=== PATIENT | female | born 1990 | race Caucasian/White ===

== ENCOUNTER 2024-04-13 12:32 | Outpatient (OUT) | payer OTHER, SELFPAY ==
--- NOTE | 2024-04-13 12:36 | US_ITS ---
[address] [address] Patient Name: ALESHA SAMANO MRN: [id number] date: 1990 Sex: F Assigned Patient Location: [facility] Current Patient Location: [facility] Accession/Order Number: [id number] Exam Date: 04/13/2024 12:36 Report Date: 04/13/2024 14:05 At the request of: KUSHAL PEREIRA Procedure: US OB transvaginal EXAMINATION: US OB transvaginal HISTORY: MISSED MENSES COMPARISON: No relevant comparison available. FINDINGS: GESTATIONAL SAC: Present and normal appearing. YOLK SAC: Present and normal appearing. POLE: Present and normal appearing. CARDIAC: Present. UTERUS: Normal size and appearance. OVARIES: Right: Contains a simple appearing 4.4 cm cyst. Left: Normal. CERVIX: 2.8 cm in length and closed. CUL-DE-SAC: Normal. OTHER: None. AGE BY LMP: 9 weeks 0 days RONY BY LMP: 11/16/2024 AGE BY US CRL: 8 weeks 5 days RONY BY US CRL: 11/18/2024 US/US OB transvaginal IMPRESSION: 1. Single live intrauterine . 2. Short, closed cervix 2.8 cm in length.. Electronically authenticated by: RAMSEY BERGERON Date: 04/13/2024 14:05
== END 2024-04-13 12:33 | disposition home or self-care (01) ==
LOC: NOMS 12:34
PROVIDERS: Visit Provider Obstetrics & Gynecology
DX: N92.6 Irregular menstruation, unspecified (principal)
CPT/HCPCS: 76817

== ENCOUNTER 2024-04-27 09:36 | Outpatient (OUT) | payer OTHER, SELFPAY ==
--- NOTE | 2024-04-27 09:39 | US_ITS ---
[address] [address] Patient Name: ALESHA SAMANO MRN: [id number] date: 1990 Sex: F Assigned Patient Location: [facility] Current Patient Location: [facility] Accession/Order Number: [id number] Exam Date: 04/27/2024 09:38 Report Date: 04/27/2024 10:50 At the request of: KUSHAL PEREIRA Procedure: US OB cervical length EXAMINATION: US OB cervical length HISTORY: SHORT CERVIX COMPARISON: Ultrasound OB transvaginal 04/13/2024 TECHNIQUE: Transabdominal and transvaginal sonographic examination for cervical length. FINDINGS: CERVIX LENGTH: 3.4 cm POSITION: Very early intrauterine . HEART RATE: 173 bpm Age by EDC: 11 weeks 0 days RONY by EDC: 11/16/2024 US/US OB cervical length IMPRESSION: 1. Single live intrauterine . 2. Closed cervix 3.4 cm in length. Electronically authenticated by: RAMSEY BERGERON Date: 04/27/2024 10:50
== END 2024-04-27 09:37 | disposition home or self-care (01) ==
LOC: NOMS 09:37
PROVIDERS: Visit Provider Obstetrics & Gynecology
DX: Z34.91 Encounter for supervision of normal pregnancy, unspecified, first trimester (principal); Z3A.11 11 weeks gestation of pregnancy; N88.3 Incompetence of cervix uteri
CPT/HCPCS: 76817

== ENCOUNTER 2024-05-25 09:23 | Outpatient (OUT) | payer OTHER, SELFPAY ==
--- NOTE | 2024-05-25 | US_ITS ---
[address] [address] Patient Name: ALESHA SAMANO MRN: [id number] date: 1990 Sex: F Assigned Patient Location: [facility] Current Patient Location: [facility] Accession/Order Number: [id number] Exam Date: 05/25/2024 09:25 Report Date: 05/25/2024 09:50 At the request of: KUSHAL PEREIRA Procedure: US OB cervical length EXAMINATION: US OB cervical length HISTORY: Short cervix N88.3 COMPARISON: 04/27/2024 FINDINGS: position: Variable Heart rate: 154 beats minute Cervix: 2.8 cm, closed US/US OB cervical length IMPRESSION: The cervix measures 2.8 cm in length, closed Electronically authenticated by: JULIEN CHAVES Date: 05/25/2024 09:50
--- OUTSIDE RECORDS SUMMARY | 2024-05-25 09:39 | XMS_ITS | CCD ---
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 Name Role Phone ELIGIO ACOSTA Nghia Primary Care Physician Fran GLORIA, IBCLC, Portillo Primary Care Provid er Georgette Adair DO Unavailable [phone] Kushal Benítez DO Unavailable PORTILLO PETERS Primary Care Physician Kushal BENÍTEZ Admitting Unavailable JACKELINVijayy R Attending Unavailable Kushal BENÍTEZ Attending Unavailable Vijay BENÍTEZy R Admitting Unavailable PORTILLO PETERS Attending Unavailable PORTILLO PETERS Attending Unavailable KUSHAL BENÍTEZ Attending Unavailable KUSHAL BENÍTEZ Attending Unavailable Allergies Allergy Classification Reported Allergen(s) Allergy Type Date of Onset Reaction(s) Facility (1 source) No Known Medication Allergies; Translations: [No Known Medication Allergies] Propensity to adverse reactions (disorder) [facility] Repository Medications Current Medications Medication Drug Class(es) Dates Sig (Normalized) Sig (Original) busPIRone (2 sources) Start: 09-22-2021 busPIRone Oral, BID, Refills(s) 0 Start Date: 09/22/21 Status: Ordered Flonase 0.05 mg/inh nasal spray (2 sources) Start: 09-22-2021 Flonase 0.05 mg/inh nasal spray 2 spray(s), Nasal, Daily, 16 gram, Refill(s) 0, each nostril, [id number], 152, cm, 09/22/21 14:32:00 EST, Height/Length Dosing, 120.5, kg, 09/22/21 14:32:00 EST, Weight Dosing Start Date: 09/22/21 Status: Ordered metFORMIN hydrochloride 500 mg oral tablet (4 sources) Biguanide Start: 11-11-2023 End: 12-11-2023 take 2 tablets by mouth in the morning metFORMIN (Glucophage) 500 MG tablet Indications: Hyperinsulinism Take 2 tablets (1,000 mg) by mouth in the morning and 2 tablets (1,000 mg) in the evening. Take with meals. 120 tablet 0 11/11/2023 12/11/2023 Active Start: 03-01-2023 End: 11-04-2023 take 1 tablet by mouth twice daily metFORMIN (Glucophage) 500 MG tablet Indications: Hyperglycemia, unspecified TAKE 1 TABLET BY MOUTH TWICE A DAY 180 tablet 3 03/01/2023 11/04/2023 Discontinued (Therapy completed) sertraline 100 mg oral tablet (8 sources) Serotonin Reuptake Inhibitor Start: 09-24-2019 take 1 tablet by mouth once daily sertraline (Zoloft) 100 MG tablet Indications: Anxiety disorder, unspecified TAKE 1 TABLET BY MOUTH EVERY DAY FOR 90 DAYS 90 tablet 3 03/01/2023 Active Sprintec (2 sources) Start: 09-24-2019 take 1 tablet by mouth once daily Sprintec 1 tab(s), Oral, Daily, Refill(s) 0 Start Date: 09/24/19 Status: Ordered Zofran ODT 4 mg Tab-Dis (2 sources) Start: 05-02-2020 take 1 tablet by mouth three times daily Zofran ODT 4 mg Tab-Dis 4 mg = 1 tab(s), Oral, TID, # 15 tab(s), Refills(s) 0 Start Date: 05/02/20 Status: Ordered Completed/Discontinued Medications Medication Drug Class(es) Dates Sig (Normalized) Sig (Original) medroxyPROGESTERone acetate 10 mg oral tablet (2 sources) Progestin Start: 3 End: medroxyPROGESTERone (Provera) 10 MG tablet 1 (one) time each day at the same time 0 11/25/2022 11/02/2023 Discontinued (Therapy completed) Semaglutide,0.25 or 0.5MG/DOS, (Ozempic, 0.25 or 0.5 MG/DOSE,) 2 MG/3ML solution pen-injector (2 sources) Start: 3 End: 4 Semaglutide,0.25 or 0.5MG/DOS, (Ozempic, 0.25 or 0.5 MG/DOSE,) 2 MG/3ML solution pen-injector Indications: Insulin resistance INJECT 0.5 MG UNDER THE SKIN 1 (ONE) TIME PER WEEK. 3 mL 3 07/07/2023 11/02/2023 Discontinued (Therapy completed) Tirzepatide (Mounjaro) 2.5 MG/0.5ML solution pen-injector (2 sources) Start: 3 End: 4 inject 2.5 mg by subcutaneous injection every week Tirzepatide (Mounjaro) 2.5 MG/0.5ML solution pen-injector as directed Subcutaneous 2.5 mg weekly 0 12/01/2022 11/02/2023 Discontinued (Therapy completed) Problems Active Problems Problem Classification Problem Date Documented Da te Episodic/Chronic Anxiety disorders (8 sources) Anxiety; Translations: [Anxiety disorder, unspecified] Onset: 11-02-2023 11-02-2023 Chronic Diabetes mellitus without complication (8 sources) Prediabetes; Translations: [Prediabetes] Onset: 11-02-2023 11-02-2023 Episodic Female infertility (8 sources) Female infertility; Translations: [Female infertility, unspecified] Onset: 11-04-2023 11-02-2023 Chronic Menstrual disorders (8 sources) Irregular periods; Translations: [Irregular menstruation, unspecified] Onset: 11-02-2023 11-02-2023 Chronic Other endocrine disorders (10 sources) Hyperinsulinism; Translations: [Other hypoglycemia] Onset: 11-02-2023 11-02-2023 Chronic Other nutritional; endocrine; and metabolic disorders (8 sources) Obesity caused by energy imbalance; Translations: [Morbid (severe) obesity due to excess calories] Onset: 11-02-2023 11-02-2023 Chronic Other nutritional; endocrine; and metabolic disorders (8 sources) Body mass index 40+ - severely obese; Translations: [Body mass index (BMI) 40.0-44.9, adult] Onset: 11-02-2023 11-02-2023 Chronic Other nutritional; endocrine; and metabolic disorders (8 sources) Insulin resistance; Translations: [Insulin resistance] Onset: 11-02-2023 11-04-2023 Chronic Other screening for suspected conditions (not mental disorders or infectious disease) (4 sources) Patient encounter status; Translations: [Encounter for screening, unspecified] 11-04-2023 Episodic Other upper respiratory infections (3 sources) Acute upper respiratory infection; Translations: [Acute upper respiratory infection, unspecified] Episodic Past or Other Problems Problem Classification Problem Date Documented Da te Episodic/Chronic Viral infection (1 source) Disease caused by 2019-nCoV; Translations: [COVID-19] Results Test Name Value Interpretation Reference Range Facility C Urineon 05-01-2024 Bacteria identified Cx Nom (U) Microbiology PROCEDURE: Urine Culture [R1] SOURCE: U CleanCatch BODY SITE: COLLECTED DATE/TIME: 04/29/2024 09:54 EDT RECEIVED DATE/TIME: 04/29/2024 14:05 EDT START DATE/TIME: 04/29/2024 14:05 EDT FREE TEXT SOURCE: Kushal BENÍTEZ DO, DO, Corey R FINAL REPORTS Final Report [] Verified Date/Time: 05/01/2024 10:38 EDT 2,000 cfu/ml Mixed skin contaminants Performing Locations R1: This test was performed at: [facility], [address] [place] [address], [facility] , , [facility] Comment on above: Performed By: #### 2 [id number] #### [facility] [address] [place] [address] .Interpretation:on 4 HCV Ab IA Ql Comment Invalid Interpretation Code [facility] Comment on above: Result Comment: Not infected with HCV unless early or acute infection is suspected (which may be delayed in an immunocompromised individual), or other evidence exists to indicate HCV infection. Performed at: [facility] [id number] PhD Wiliam Mendoza Performed By: #### 2 [id number] #### [facility] [address] [place] [address] HCV Antibody RFX to Quant PC Eugenio 04-30-2024 HCV IgG IA Ql Non-Reactive Invalid Interpretation Code Non Reactive [facility] Comment on above: Result Comment: Perf ormed at: [address] [id number] PhD Wiliam Mendoza Performed By: #### 2 [id number] #### [facility] [address] [place] [address] HIV Screen 4th Generation wR fxon 04-30-2024 HIV 1+2 Ab+HIV1 p24 Ag IA Ql Non-Reactive Invalid Interpretation Code Non Reactive [facility] Comment on above: Result Comment: HIV Negative HIV-1/HIV-2 antibodies and HIV-1 p24 antigen were NOT detected. There is no laboratory evidence of HIV infection. Performed at: [address] [id number] PhD Wiliam Mendoza Performed By: #### 9 [id number] #### [facility] [address] [place] [address] Hep Bs Agon 04-30-2024 HBV surface Ag IA Ql Negative Invalid Interpretation Code Negative [facility] Comment on above: Result Comment: Perf ormed at: [address] [id number] PhD Wiliam Mendoza Performed By: #### 2 [id number] #### [facility] [address] [place] [address] [id number] 04-30-2024 HbA1c (Bld) [Mass fraction] 5.3 % Normal <=5.9 [facility] Comment on above: Performed By: #### 7 [id number] #### [facility] [address] [place] [address] RPR with Conf Rfxon 04-30-20 24 Reagin Ab RPR Ql (S) Non-Reactive Invalid Interpretation Code Non Reactive [facility] Comment on above: Result Comment: Perf ormed at: [address] [id number] PhD Wiliam Mendoza Performed By: #### 1 [id number] #### [facility] [address] [place] [address] Rubella IgGon 04-30-2024 Rubella virus IgG Qn (S) 1.76 [IU]/mL Invalid Interpretation Code Immune >0.99 [facility] Comment on above: Result Comment: Non- immune <0.90 Equivocal 0.90 - 0.99 Immune >0.99 Performed at: [address] [id number] PhD Wiliam Mendoza Performed By: #### 1 [id number] #### [facility] [address] [place] [address] ABO/Rhon 04-29-2024 ABO/Rh AB NEG Invalid Interpretation Code [facility] Comment on above: Performed By: #### 2 [id number] #### [facility] [address] [place] [address] ABSCon 04-29-2024 ABSC Gel Interp Negative Normal [facility] Comment on above: Performed By: #### 1 [id number] #### [facility] [address] [place] [address] BLOOD BANKOrdered By: Rand Sol on 04-29-2024 ABO/Rh Interp AB NEG Invalid Interpretation Code [facility] BB Subsection ABSC Gel Interp Negative (04/29/24 10:03 AM) Normal [facility] BB Subsection CBC w/ Auto Diffon 4 Basophils/100 WBC (Bld) 0.2 % Normal 0.0-2.0 [facility] Comment on above: Performed By: #### 2 [id number] #### [facility] [address] [place] [address] Basophils/Leukocytes Auto (Bld) [Pure # fraction] 0.0 E9/L Normal 0.0-0.2 [facility] Comment on above: Performed By: #### 2 [id number] #### [facility] [address] [place] [address] Eosinophils (Bld) [#/Vol] 0.1 E9/L Normal 0.0-0.5 [facility] Comment on above: Performed By: #### 2 [id number] #### [facility] [address] [place] [address] Eosinophils/100 WBC (Bld) 1.1 % Normal 0.0-8.0 [facility] Comment on above: Performed By: #### 2 [id number] #### [facility] [address] [place] [address] Erythrocyte distribution width (RBC) [Ratio] 14.2 % Normal 10.9-14.2 [facility] Comment on above: Performed By: #### 2 [id number] #### [facility] [address] [place] [address] Hematocrit (Bld) [Volume fraction] 38.3 % Normal 34.0-46.0 [facility] Comment on above: Performed By: #### 2 [id number] #### [facility] [address] [place] [address] Hemoglobin (Bld) [Mass/Vol] 13.5 g/dL Normal 12.0-16.0 [facility] Comment on above: Performed By: #### 2 [id number] #### [facility] [address] [place] [address] Lymphocytes (Bld) [#/Vol] 2.2 E9/L Normal 1.0-4.0 [facility] Comment on above: Performed By: #### 2 [id number] #### [facility] [address] [place] [address] Lymphocytes/100 WBC (Bld) 25.1 % Normal 14.0-50.0 [facility] Comment on above: Performed By: #### 2 [id number] #### [facility] [address] [place] [address] MCH (RBC) [Entitic mass] 29.3 pg Normal 27.0-34.0 [facility] Comment on above: Performed By: #### 2 [id number] #### [facility] [address] [place] [address] MCHC (RBC) [Mass/Vol] 35.2 g/dL Normal 31.4-36.0 [facility] Comment on above: Performed By: #### 2 [id number] #### [facility] [address] [place] [address] MCV (RBC) [Entitic vol] 83.3 fL Normal 80.0-100.0 [facility] Comment on above: Performed By: #### 2 [id number] #### [facility] [address] [place] [address] Monocytes (Bld) [#/Vol] 0.5 E9/L Normal 0.2-1.0 [facility] Comment on above: Performed By: #### 2 [id number] #### [facility] [address] [place] [address] Neutrophils (Bld) [#/Vol] 5.8 E9/L Normal 2.0-7.5 [facility] Comment on above: Performed By: #### 2 [id number] #### [facility] [address] [place] [address] Neutrophils/100 WBC (Bld) 67.6 % Normal 36.0-75.0 [facility] Comment on above: Performed By: #### 2 [id number] #### [facility] [address] [place] [address] Platelet 354.0 E9/L Normal 150.0-500.0 [facility] Comment on above: Performed By: #### 2 [id number] #### [facility] [address] [place] [address] Platelet mean volume (Bld) [Entitic vol] 7.9 fL Normal 6.4-10.8 [facility] Comment on above: Performed By: #### 2 [id number] #### [facility] [address] [place] [address] RBC (Bld) [#/Vol] 4.6 E12/L Normal 4.3-5.9 [facility] Comment on above: Performed By: #### 2 [id number] #### [facility] [address] [place] [address] WBC corrected for nucl RBC Auto (Bld) [#/Vol] 8.6 E9/L Normal 4.0-11.0 [facility] Comment on above: Performed By: #### 2 [id number] #### [facility] [address] [place] [address] HEMATOLOGYOrdered By: SYSTEM SYSTEM on 04-29-2024 Basophils/100 WBC (Bld) 0.2 % Normal 0.0 - 2.0 % [facility] Basophils/Leukocytes Auto (Bld) [Pure # fraction] 0.0 E9/L Normal 0.0 - 0.2 E9/L [facility] Eosinophils (Bld) [#/Vol] 0.1 E9/L Normal 0.0 - 0.5 E9/L [facility] Eosinophils/100 WBC (Bld) 1.1 % Normal 0.0 - 8.0 % [facility] Erythrocyte distribution width (RBC) [Ratio] 14.2 % Normal 10.9 - 14.2 % [facility] Hematocrit (Bld) [Volume fraction] 38.3 % Normal 34.0 - 46.0 % [facility] Hemoglobin (Bld) [Mass/Vol] 13.5 g/dL Normal 12.0 - 16.0 gm/dL [facility] Lymphocytes (Bld) [#/Vol] 2.2 E9/L Normal 1.0 - 4.0 E9/L [facility] Lymphocytes/100 WBC (Bld) 25.1 % Normal 14.0 - 50.0 % [facility] MCH (RBC) [Entitic mass] 29.3 pg Normal 27.0 - 34.0 pg [facility] MCHC (RBC) [Mass/Vol] 35.2 g/dL Normal 31.4 - 36.0 gm/dL [facility] MCV (RBC) [Entitic vol] 83.3 fL Normal 80.0 - 100.0 fL [facility] Monocytes (Bld) [#/Vol] 0.5 E9/L Normal 0.2 - 1.0 E9/L [facility] Monocytes/100 WBC (Bld) 6.0 % Normal 4.0 - 14.0 % [facility] Neutrophils (Bld) [#/Vol] 5.8 E9/L Normal 2.0 - 7.5 E9/L [facility] Neutrophils/100 WBC (Bld) 67.6 % Normal 36.0 - 75.0 % [facility] Platelet 354.0 E9/L Normal 150.0 - 500.0 E9/L [facility] Platelet mean volume (Bld) [Entitic vol] 7.9 fL Normal 6.4 - 10.8 fL [facility] RBC (Bld) [#/Vol] 4.6 E12/L Normal 4.3 - 5.9 E12/L [facility] WBC corrected for nucl RBC Auto (Bld) [#/Vol] 8.6 E9/L Normal 4.0 - 11.0 E9/L [facility] UA with Cult Rflxon 04-29-20 24 Bacteria Auto Ql (U) 3+ /HPF Abnormal Trace Fish er [facility] Comment on above: Performed By: #### 4 [id number] #### [facility] [address] [place] [address] Bilirubin Ql (U) Negative Normal Negative [facility] Comment on above: Performed By: #### 4 [id number] #### [facility] [address] [place] [address] Clarity (U) Clear Normal Clear [facility] Comment on above: Performed By: #### 4 [id number] #### [facility] [address] [place] [address] Color (U) Light-Yellow Normal Yellow [facility] Comment on above: Result Comment: Micr oscopic readings are only performed on those samples that meet specific criteria set forth by [facility]. Performed By: #### 4 [id number] #### [facility] [address] [place] [address] Epithelial cells.squamous Auto (Urine sed) [#/Area] 0-2 Invalid Interpretation Code [facility] Comment on above: Performed By: #### 4 [id number] #### [facility] [address] [place] [address] Glucose Ql (U) Negative Normal Negative [facility] Comment on above: Performed By: #### 4 [id number] #### [facility] [address] [place] [address] Hemoglobin Auto test strip (U) [Mass/Vol] Negative Normal Negative [facility] Comment on above: Performed By: #### 4 [id number] #### [facility] [address] [place] [address] Ketones Auto test strip Ql (U) Negative Normal Negative [facility] Comment on above: Performed By: #### 4 [id number] #### [facility] [address] [place] [address] Leukocyte esterase Auto test strip Ql (U) 75 Anna/uL Abnormal Negative [facility] Comment on above: Performed By: #### 4 [id number] #### [facility] [address] [place] [address] Mucus Auto Ql (U) Trace Normal Negative [facility] Comment on above: Performed By: #### 4 [id number] #### [facility] [address] [place] [address] Nitrite Auto test strip Ql (U) Negative Normal Negative [facility] Comment on above: Performed By: #### 4 [id number] #### [facility] [address] [place] [address] pH (U) 5.5 [pH] Invalid Interpretation Code 5.0-9.0 [facility] Comment on above: Performed By: #### 4 [id number] #### [facility] [address] [place] [address] Protein Ql (U) Negative Normal Negative [facility] Comment on above: Performed By: #### 4 [id number] #### [facility] [address] [place] [address] Specific gravity (U) [Rel density] 1.007 Invalid Interpretation Code 1.005-1.030 [facility] Comment on above: Performed By: #### 4 [id number] #### [facility] [address] [place] [address] Urobilinogen (U) [Mass/Vol] Negative Normal Negative [facility] Comment on above: Performed By: #### 4 [id number] #### [facility] [address] [place] [address] WBC Auto (Urine sed) [#/Area] 0-5 Normal 0-5 [facility] Comment on above: Performed By: #### 4 [id number] #### [facility] [address] [place] [address] Type of Urine collection method Clean Catch Normal [facility] Comment on above: Performed By: #### 4 [id number] #### [facility] [address] [place] [address] URINALYSISOrdered By: SYSTEM SYSTEM on 04-29-2024 Bacteria Auto Ql (U) 3+ /HPF Invalid Interpretation Code Trace/HPF [facility] UA Auto SS Bilirubin Ql (U) Negative Normal Negativemg/ d L [facility] UA Auto SS Clarity (U) Clear (04/29/24 9:54 AM) Normal Clear [facility] UA Auto SS Color (U) Light-Yellow 1 (04/29/24 9:54 AM) Normal Yellow [facility] UA Auto SS Comment on above: Interpretive Data: M icroscopic readings are only performed on those samples that meet specific criteria set forth by [facility]. Epithelial cells.squamous Auto (Urine sed) [#/Area] 0-2 graded/HPF Invalid Interpretation Code [facility] UA Auto SS Glucose Ql (U) Negative Normal Negativemg/d L [facility] UA Auto SS Hemoglobin Auto test strip (U) [Mass/Vol] Negative Normal Negativemg/d L [facility] UA Auto SS Ketones Auto test strip Ql (U) Negative Normal Negativemg/d L [facility] UA Auto SS Leukocyte esterase Auto test strip Ql (U) 75 Anna/uL Anna/uL Invalid Interpretation Code NegativeLeu/ uL [facility] UA Auto SS Mucus Auto Ql (U) Trace graded/LPF Normal Negati vegrad ed/LPF [facility] UA Auto SS Nitrite Auto test strip Ql (U) Negative Normal Negativemg/d L [facility] UA Auto SS pH (U) 5.5 *NA* (8/3/24 9:54 AM) Invalid Interpretation Code 5.0 - 9.0 [facility] UA Auto SS Protein Ql (U) Negative Normal Negativemg/d L [facility] UA Auto SS Specific gravity (U) [Rel density] 1.007 *NA* (04/29/24 9:54 AM) Invalid Interpretation Code 1.005 - 1.030 [facility] UA Auto SS Urobilinogen (U) [Mass/Vol] Negative Normal Negativemg/d L [facility] UA Auto SS WBC Auto (Urine sed) [#/Area] 0-5 graded/HPF Normal 0-5graded/HP F [facility] UA Auto SS URINALYSISOrdered By: Logan Laws on 04-29-2024 UA Spec Desc Clean Catch (04/29/24 9:54 AM) Normal [facility] UA Auto SS MICRO OTHER TESTSOrdered By: Trisha Vasquez on 09-23-2021 Influenzae A Ag Negative (09/23/21 9:13 AM) Normal Negative [facility] Influenzae B Ag Negative (09/23/21 9:13 AM) Normal Negative [facility] Rapid COV Int NEG Ctl Pass (09/23/21 9:13 AM) Normal [facility] Rapid COV Int POS Ctl Pass (09/23/21 9:13 AM) Normal [facility] SARS-CoV+SARS-CoV-2 (COVID-19) Ag IA.rapid Ql (Resp) Detected 1 *CRIT* (09/23/21 9:13 AM) Invalid Interpretation Code Not Detected [facility] Comment on above: Result Comment: Resu lts Called To Nida Morse By ángel And Read Back For Confirmation On 09/23/2021 10:34:57 EST. CBC With Platelet and Differ entialon 04-02-2020 Basophils (Bld) [#/Vol] 0.0 10*3/uL Normal 0.0-0.2 [facility] Comment on above: Performed By: #### C BCWD #### [facility] [address] [place] [address] Basophils/100 WBC (Bld) 0.3 % Normal [facility] Comment on above: Performed By: #### C BCWD #### [facility] [address] [place] [address] Eosinophils (Bld) [#/Vol] 0.1 10*3/uL Normal 0.0-0.7 [facility] Comment on above: Performed By: #### C BCWD #### [facility] [address] [place] [address] Eosinophils/100 WBC (Bld) 1.1 % Normal [facility] Comment on above: Performed By: #### C BCWD #### [facility] [address] [place] [address] Erythrocyte distribution width (RBC) [Ratio] 15.4 % Critically high 11.5-14.5 [facility] Comment on above: Performed By: #### C BCWD #### [facility] [address] [place] [address] Hematocrit (Bld) [Volume fraction] 40.3 % Normal 37.0-47.0 [facility] Comment on above: Performed By: #### C BCWD #### [facility] [address] [place] [address] Hemoglobin (Bld) [Mass/Vol] 13.2 g/dL Normal 12.0-16.0 [facility] Comment on above: Performed By: #### C BCWD #### [facility] [address] [place] [address] Lymphocytes (Bld) [#/Vol] 2.3 10*3/uL Normal 1.0-4.8 [facility] Comment on above: Performed By: #### C BCWD #### [facility] [address] [place] [address] Lymphocytes/100 WBC (Bld) 25.1 % Normal [facility] Comment on above: Performed By: #### C BCWD #### [facility] [address] [place] [address] MCH (RBC) [Entitic mass] 27.4 pg Normal 27.0-31.3 [facility] Comment on above: Performed By: #### C BCWD #### [facility] [address] [place] [address] MCHC (RBC) [Mass/Vol] 32.8 % Low 33.0-37.0 [facility] Comment on above: Performed By: #### C BCWD #### [facility] [address] [place] [address] MCV (RBC) [Entitic vol] 83.7 fL Normal 82.0-100.0 [facility] Comment on above: Performed By: #### C BCWD #### [facility] [address] [place] [address] Monocytes (Bld) [#/Vol] 0.6 10*3/uL Normal 0.2-0.8 [facility] Comment on above: Performed By: #### C BCWD #### [facility] [address] [place] [address] Monocytes/100 WBC (Bld) 7.0 % Normal [facility] Comment on above: Performed By: #### C BCWD #### [facility] [address] [place] [address] Neutrophils (Bld) [#/Vol] 6.2 10*3/uL Normal 1.4-6.5 [facility] Comment on above: Performed By: #### C BCWD #### [facility] [address] [place] [address] Neutrophils/100 WBC (Bld) 66.5 % Normal [facility] Comment on above: Performed By: #### C BCWD #### [facility] [address] [place] [address] Platelets (Bld) [#/Vol] 308 10*3/uL Normal 130-400 [facility] Comment on above: Performed By: #### C BCWD #### [facility] [address] [place] [address] RBC (Bld) [#/Vol] 4.81 10*6/uL Normal 4.20-5.40 [facility] Comment on above: Performed By: #### C BCWD #### [facility] [address] [place] [address] WBC (Bld) [#/Vol] 9.3 10*3/uL Normal 4.8-10.8 [facility] Comment on above: Performed By: #### C BCWD #### [facility] [address] [place] [address] Comprehensive Metabolic Pane leidy 04-02-2020 Albumin [Mass/Vol] 3.9 g/dL Normal 3.5-4.6 [facility] Comment on above: Performed By: #### C MP #### [facility] [address] [place] [address] ALP [Catalytic activity/Vol] 75 U/L Normal 40-130 [facility] Comment on above: Performed By: #### C MP #### [facility] [address] [place] [address] ALT [Catalytic activity/Vol] 18 U/L Normal 0-33 [facility] Comment on above: Performed By: #### C MP #### [facility] [address] [place] [address] Anion gap [Moles/Vol] 11 mmol/L Normal 9-15 [facility] Comment on above: Performed By: #### C MP #### [facility] [address] [place] [address] AST [Catalytic activity/Vol] 22 U/L Normal 0-35 [facility] Comment on above: Performed By: #### C MP #### [facility] [address] [place] [address] Bilirubin [Mass/Vol] mg/dL Normal 0.2-0.7 [facility] Comment on above: Performed By: #### C MP #### [facility] [address] [place] [address] Calcium [Mass/Vol] 9.1 mg/dL Normal 8.5-9.9 [facility] Comment on above: Performed By: #### C MP #### [facility] [address] [place] [address] Chloride [Moles/Vol] 103 mmol/L Normal 95-107 [facility] Comment on above: Performed By: #### C MP #### [facility] [address] [place] [address] CO2 [Moles/Vol] 23 mmol/L Normal 20-31 [facility] Comment on above: Performed By: #### C MP #### [facility] [address] [place] [address] Creatinine [Mass/Vol] 0.66 mg/dL Normal 0.50-0.90 [facility] Comment on above: Performed By: #### C MP #### [facility] [address] [place] [address] GFR/1.73 sq M predicted among blacks MDRD (S/P/Bld) [Vol rate/Area] mL/min/{1.73_m2} Normal >60 [facility] Comment on above: Result Comment: >60 mL/min/1.73m2 EGFR, calc. for ages 18 and older using the MDRD formula (not corrected for weight), is valid for stable renal function. Performed By: #### C MP #### [facility] [address] [place] [address] GFR/1.73 sq M.predicted MDRD (S/P/Bld) [Vol rate/Area] mL/min/{1.73_m2} Normal >60 [facility] Comment on above: Result Comment: >60 mL/min/1.73m2 EGFR, calc. for ages 18 and older using the MDRD formula (not corrected for weight), is valid for stable renal function. Performed By: #### C MP #### [facility] [address] [place] [address] Globulin (S) [Mass/Vol] 3.1 g/dL Normal 2.3-3.5 [facility] Comment on above: Performed By: #### C MP #### [facility] [address] [place] [address] Glucose [Mass/Vol] 74 mg/dL Normal 70-99 [facility] Comment on above: Performed By: #### C MP #### [facility] [address] [place] [address] Potassium [Moles/Vol] 4.4 mmol/L Normal 3.4-4.9 [facility] Comment on above: Performed By: #### C MP #### [facility] [address] [place] [address] Protein [Mass/Vol] 7.0 g/dL Normal 6.3-8.0 [facility] Comment on above: Performed By: #### C MP #### [facility] [address] [place] [address] Sodium [Moles/Vol] 137 mmol/L Normal 135-144 [facility] Comment on above: Performed By: #### C MP #### [facility] [address] [place] [address] Urea nitrogen [Mass/Vol] 16 mg/dL Normal 6-20 [facility] Comment on above: Performed By: #### C MP #### [facility] [address] [place] [address] Hemoglobin A1con 04-02-2020 HbA1c (Bld) [Mass fraction] 5.8 % Normal 4.8-5.9 [facility] Comment on above: Performed By: #### A 1C #### [facility] [address] [place] [address] TSH w/Reflexon 04-02-2020 TSH Qn 3.260 uIU/mL Normal 0.440-3.86 [facility] Comment on above: Performed By: #### T SHR #### [facility] [address] [place] [address] Vital Signs Date Time Vital Sign Value Performing Clinician Georgie carcamo 11-11-2023 13:56-0500 Body height 152.4 cm Portillo Peters MD, IBCLC Work Phone: [facility] 11-11-2023 13:56-0500 Body mass index (BMI) [Ratio] 43.71 kg/m2 Portillo Peters MD, IBCLC Work Phone: [facility] 11-11-2023 13:56-0500 Body temperature 96.49 [degF] Portillo Peters MD, IBCLC Work Phone: [facility] 11-11-2023 13:56-0500 Body weight 101.52 kg Portillo Peters MD, IBCLC Work Phone: [facility] 11-11-2023 13:56-0500 Diastolic blood pressure 68 mm[Hg] Portillo Peters MD, IBCLC Work Phone: [facility] 11-11-2023 13:56-0500 Heart rate 86 /min Portillo Peters MD, IBCLC Work Phone: [facility] 11-11-2023 13:56-0500 SaO2% (BldA) [Mass fraction] 99 % Portillo Peters MD, IBCLC Work Phone: [facility] 11-11-2023 13:56-0500 Systolic blood pressure 120 mm[Hg] Portillo Peters MD, IBCLC Work Phone: [facility] 11-02-2023 14:13-0500 Body height 152.4 cm Portillo Peters MD, IBCLC Work Phone: [facility] 11-02-2023 14:13-0500 Body mass index (BMI) [Ratio] 44.57 kg/m2 Portillo Peters MD, IBCLC Work Phone: [facility] 11-02-2023 14:13-0500 Body temperature 96.4 [degF] Portillo Pteers MD, IBCLC Work Phone: [facility] 11-02-2023 14:13-0500 Body weight 103.51 kg Portillo Peters MD, IBCLC Work Phone: [facility] 11-02-2023 14:13-0500 Diastolic blood pressure 68 mm[Hg] Portillo Peters MD, IBCLC Work Phone: [facility] 11-02-2023 14:13-0500 Heart rate 76 /min Portillo Peters MD, IBCLC Work Phone: [facility] 11-02-2023 14:13-0500 SaO2% (BldA) [Mass fraction] 98 % Portillo Peters MD, IBCLC Work Phone: [facility] 11-02-2023 14:13-0500 Systolic blood pressure 128 mm[Hg] Portillo Peters MD, IBCLC Work Phone: [facility] Healthcare Encounters Encounter Date Encounter Type Care Provider Facility Start: 05-11-2024 End: 05-11-2024 ambulatory KUSHAL JACKELIN Not Available Start: 04-29-2024 End: 04-29-2024 ambulatory Kushal R JACKELIN Facility:[facility] [place] Start: 04-29-2024 End: 04-29-2024 Patient encounter procedure Kushal R JACKELIN [facility] Start: 04-13-2024 End: 04-13-2024 ambulatory PORTILLO PETERS Not Available Start: 11-16-2023 End: 11-16-2023 ambulatory KUSHAL JACKELIN Not Available Start: 11-11-2023 Bamboo flowsheet Portillo caballero MD, IBCLC Work Phone: [facility] Start: 11-11-2023 Bamboo flowsgabriela caballero MD, IBCLC Work Phone: [facility] Start: 11-11-2023 End: 11-11-2023 Office outpatient visit 25 minutes Portillo Peters MD, IBCLC Work Phone: [facility] Comment on above: Hyperinsulinism (Lanie zarina Dx); Encounter for preconception consultation Start: 11-11-2023 End: 11-11-2023 ambulatory PORTILLO PETERS Not Available Start: 11-07-2023 Chart abstracting Portillo lucas MD, IBCLC Work Phone: [facility] Start: 11-02-2023 End: 11-02-2023 Office outpatient new 45 minutes Portillo Peters MD, IBCLC Work Phone: [facility] Comment on above: Anxiety (Primary Dx) ; Morbid (severe) obesity due to excess calories (E66.01); BMI 40.0-44.9, adult (CMS/[facility]); Prediabetes; Hyperinsulinism; Irregular menstrual cycle; Infertility, female; Encounter for screening involving social determinants of health (SDoH); Insulin resistance Start: 11-02-2023 End: 11-02-2023 ambulatory PORTILLO PETERS Not Available Start: 09-22-2021 End: 12-22-2021 Recurring Pari Hernandes [facility] Procedures Date Procedure Procedure Detail Performing Clinician Cholecystectomy Pari camara Structure of wisdom tooth (body structure) Pari Hernandes Comment on above: x4 Tonsillectomy and adenoidectomy Pari Hernandes Plan of Treatment Date Care Activity Detail Author Start: 01-02-2028 Screening for malign ant neoplasm of cervix [facility] Start: 03-26-2024 Influenza vaccination Influenza Vacc ine (#1) [facility] Comment on above: Postponed from 05/28 (Patient Refused) Start: 11-16-2023 End: 11-16-2023 Patient encounter procedure 11/16/2023 9:10 AM EST Office Visit [facility] [address] [place] [address] Kushal Benítez DO [address] [place] [address] [facility] Start: 11-11-2023 End: 11-11-2023 [facility] on above: Arrived Start: 11-02-2023 End: 11-02-2024 17-Hydroxyprogesterone 17-Hydroxyprogesterone Lab Routine Morbid (severe) obesity due to excess calories (E66.01) BMI 40.0-44.9, adult (CMS/HCC) Hyperinsulinism Irregular menstrual cycle Infertility, female Expected: 11/02/2023 (Approximate), Expires: 11/02/2024 [facility] Comment on above: Expected: 11/02/2023 (Approximate), Expires: 11/02/2024 Start: 11-02-2023 End: 11-02-2024 Antimullerian hormone (AMH) Antimullerian hormone (AMH) Lab Routine Morbid (severe) obesity due to excess calories (E66.01) BMI 40.0-44.9, adult (CMS/HCC) Hyperinsulinism Irregular menstrual cycle Infertility, female Expected: 11/02/2023 (Approximate), Expires: 11/02/2024 [facility] Comment on above: Expected: 11/02/2023 (Approximate), Expires: 11/02/2024 Start: 11-02-2023 End: 11-02-2024 Cortisol Cortisol Lab Routine Morbid (severe) obesity due to excess calories (E66.01) BMI 40.0-44.9, adult (CMS/HCC) Hyperinsulinism Irregular menstrual cycle Infertility, female Expected: 11/02/2023 (Approximate), Expires: 11/02/2024 [facility] Work Phone: Comment on above: Expected: 11/02/2023 (Approximate), Expires: 11/02/2024 Start: 11-02-2023 End: 11-02-2024 DHEA level DHEA level Lab Routine Morbid (severe) obesity due to excess calories (E66.01) BMI 40.0-44.9, adult (CMS/HCC) Hyperinsulinism Irregular menstrual cycle Infertility, female Expected: 11/02/2023 (Approximate), Expires: 11/02/2024 [facility] Comment on above: Expected: 11/02/2023 (Approximate), Expires: 11/02/2024 Start: 11-02-2023 End: 11-02-2024 Hemoglobin A1c measurement Hemoglobin A1c Lab Routine Morbid (severe) obesity due to excess calories (E66.01) BMI 40.0-44.9, adult ([facility]) Hyperinsulinism Irregular menstrual cycle Infertility, female Expected: 11/02/2023 (Approximate), Expires: 11/02/2024 [facility] Comment on above: Expected: 11/02/2023 (Approximate), Expires: 11/02/2024 Start: 11-02-2023 End: 11-02-2024 Prolactin level Prolactin level Lab Routine Morbid (severe) obesity due to excess calories (E66.01) BMI 40.0-44.9, adult ([facility]/HCC) Hyperinsulinism Irregular menstrual cycle Infertility, female Expected: 11/02/2023 (Approximate), Expires: 11/02/2024 [facility] Comment on above: Expected: 11/02/2023 (Approximate), Expires: 11/02/2024 Start: 11-02-2023 End: 11-02-2024 TSH W/REFLEX TO FT4 TSH W/REFLEX TO FT4 Lab Routine Morbid (severe) obesity due to excess calories (E66.01) BMI 40.0-44.9, adult ([facility]/HCC) Hyperinsulinism Irregular menstrual cycle Infertility, female Expected: 11/02/2023 (Approximate), Expires: 11/02/2024 [facility] Comment on above: Expected: 11/02/2023 (Approximate), Expires: 11/02/2024 Start: 2012 Screening for malign ant neoplasm of cervix Pap Smear [facility] Payers Date Payer Category Payer Unknown [id number] 2023 Unknown [id number] 1991 Unknown [id number] 1991 Unknown [id number] [id number] 1991 Unknown [id number] [id number] 1991 Unknown [id number] [id number] [id number] 1991 Unknown [id number] [id number] [id number] 1991 Unknown [id number] [id number] Social History Date Type Detail Facility Start: 09-22-2021 Tobacco smoking status Ex-smoker (fi nding) [facility] Tobacco smoking status Never [facility] Start: 11-01-2023 End: 11-11-2023 Sex Assigned At Female [facility] Start: 11-02-2023 [facility] Start: 11-02-2023 Tobacco use and exposure Smokeless tobacco non-user [facility] Start: 11-02-2023 End: 11-11-2023 Alcohol intake Current drinker of alcohol (finding) [facility] Start: 11-01-2023 End: 11-11-2023 History of Social function [facility] Within the last year , have you been afraid of your partner or ex-partner? No [facility] Are you now , , , , never or living with a partner? [facility] How often to you hav e a drink containing alcohol? Monthly or less [facility] How many standard drinks containing alcohol do you have on a typical day? 1 or 2 [facility] How often do you hav e 6 or more drinks on 1 occasion? Less than monthly [facility] How hard is it for y ou to pay for the very basics like food, housing, medical care, and heating Not very hard [facility] Do you feel stress - tense, restless, nervous, or anxious, or unable to sleep at night because your mind is troubled all the time - these days [OSQ] To some extent [facility] (I/We) worried wheth er (my/our) food would run out before (I/we) got money to buy more. Never true [facility] Start: 11-02-2023 Tobacco Comment Former smoker, quit in 2020 [facility] Start: 11-02-2023 Alcohol Comment On special occasions [facility] Start: 1990 Sex Assigned At Not on file [facility] Evaluation + Plan note 04-29-2024 Note Date & Type Note Facility 04-29-2024 Evaluation + Plan note Diagnostic Tests [id number] 04/29/24RPR with Conf Rfx 04/29/24Rubella Antibody IgG 04/29/24epatitis B Surface Antigen 04/29/24CV Antibody RFX to Quant PCR 04/29/24IV Screen 4th Generation wRfx 04/29/24Urine Culture 04/29/[address] [facility] History of Present illness Narrative 11-11-2023 Portillo Peters MD, IBCLC - 11/11/2023 2:00 PM EST Note Date & Type Note Facility 11-11-2023 History of Presen t illness Narrative Images from the original note were not included. SUBJECTIVE: History Provided by: patient Pt is here for lab review She is taking a vitamin. She has taken metformin before. She has had chin hair in the past. Periods are unpredictable since , since June 2022. Past medical history, allergies, surgical history, family history, and social history were reviewed. See medication list at the end of this note. Current Outpatient Medications Medication Instructions metFORMIN (GLUCOPHAGE) 1,000 mg, Oral, 2 times daily with meals sertraline (Zoloft) 100 MG tablet TAKE 1 TABLET BY MOUTH EVERY DAY FOR 90 DAYS OBJECTIVE: BP 120/68 Pulse 86 Temp 96.5 F Ht 5' Wt 223 lb 12.8 oz SpO2 99% BMI 43.71 kg/m Physical Exam Constitutional: General: She is not in acute distress. Appearance: Normal appearance. She is not ill-appearing. Eyes: General: No scleral icterus. Conjunctiva/sclera: Conjunctivae normal. Pulmonary: Effort: Pulmonary effort is normal. No respiratory distress. Musculoskeletal: General: No deformity. Normal range of motion. Skin: General: Skin is warm and dry. Neurological: General: No focal deficit present. Mental Status: She is alert. Motor: Motor function is intact. Gait: Gait is intact. Psychiatric: Mood and Affect: Mood normal. Behavior: Behavior normal. Lab Results Office Visit on 11/02/2023 Component Date Value CORTISOL, TOTAL 11/05/2023 19.4 DHEA, UNCONJUGATED 11/05/2023 226 17-HYDROXYPROGESTERONE 11/05/2023 85 TSH W/REFLEX TO FT4 11/05/2023 2.91 Hemoglobin A1C 11/05/2023 5.6 PROLACTIN 11/05/2023 17.4 ANTI-MULLERIAN HORMONE (* 11/05/2023 1.89 Imaging Results 11/06/2021 transvaginal pelvic ultrasound The right ovary contains multiple sonolucent cyst the largest measuring 10 x 10 x 8 mm. No cysts in the left ovary. ASSESSMENT AND PLAN: Diagnosis 1. Hyperinsulinism 2. Encounter for preconception consultation New Medications Ordered This Visit Medications metFORMIN (Glucophage) 500 MG tablet Sig: Take 2 tablets (1,000 mg) by mouth in the morning and 2 tablets (1,000 mg) in the evening. Take with meals. Dispense: 120 tablet Refill: 0 Discussion: Patient is actively trying to conceive. She is here for lab review or possible PCOS. She has a clinical history of hirsutism, although none visible on exam today. History of elevated insulin levels. Recent lab work is negative for elevated DHEA or hydroxyprogesterone. TSH is adequately greater than 2.5. She endorses irregular menstrual cycles since June of 2022. (prior to that, they were regular). Ultrasound in October of 2021 multiple cysts in the right ovary. Technically, per [place] criteria, she meets diagnostic criteria for PCOS (oligoanovulation + clinical signs of hyderandrogenism + polycystic ovary), despite in underwhelming DHEA on lab evaluation. No evidence of hyperprolactinemia. Anti mullerian hormone is normal, indicative of adequate ovarian reserve. Given her desire to get , I recommend we start metformin to improve her metabolic profile infertility. Recommend starting with a low dose of 500 mg once daily, then escalating to 500 mg twice a day, and then 1000 mg twice a day. Once she is underwent 1000 mg twice a day, I can send in a new prescription with a 1000 mg tablets. Counseled patient on the potential side effects of this medication. If she experiences distressful diarrhea or nausea, we can try the extended release formulation. Counseled patient on strategies for conception. Recommend tracking her periods, as able, and taking ovulation tests to help to predict when she ambulates. Recommend sexual intercourse for the 5 days preceding ovulation and 2 days after. Encouraged consumption of a vitamin. Educated patient on the signs of early , and reasons to take a test. She has an appointment with her OBGYN next week. Further conception strategies with him, and/or determine when/if they should consider Clomid Portillo Peters MD, IBCLC [facility] documented in this encounter [facility] Healthcare Instructions 11-11-2023 Patient Instructions Note Date & Type Note Facility 11-11-2023 Instructions Portillo Peters MD, IBCLC - 11/11/2023 2:00 PM EST Metformin 500mg tablets Week 1: 500mg daily Week 2: 500mg twice a day Week 3: 1000mg twice a day documented in this encounter [facility] History of Present illness Narrative 11-04-2023 Portillo Peters MD, IBCLC - 11/04/2023 9:08 AM ESTAleindio Peters MD, IBCLC - 11/02/2023 2:20 PM EST Note Date & Type Note Facility 11-04-2023 History of Presen t illness Narrative Associated Problem(s): Infertility, female Suspect PCOS, but she has not had a comprehensive workup to r/o other conditions. She has been on metformin in the past. She is interested in conceiving. We can reconsider metformin if labs are consistent with PCOS to optimize fertility. She has already had a pelvic ultrasound , which showed a few cysts, but otherwise normal. She has an appointment with Dr. Benítez upcoming Sharlene Arteaga is a 33 y.o. female who presents today to establish care. Would like to discuss conceiving Subjective HPI: She was previously on Ozempic. She is TTC. Insurance stopped Ozempic coverage. She is still losing weight. She was on metformin before Ozempic, which was helping. When she started, 261 lbs. She has tried exercise, counting calories, calorie deficit. She got in 2021. She has tried adipex around that time, which gave her panic attacks. She stopped having periods when she started Ozempic. Periods returned after stopping Ozempic. She was later restarted on Ozempic , and periods changed again. Periods resumed with weight loss. She is eating more fruits and vegetables. She will be seeing Dr Jackelin [place]. Mom had one miscarriage. Periods are irregular. Light, heavy x 4 days, light at the end. 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 Patient admits to depression. She has been on zoloft for 10years. She felt the zoloft was causing her more anxiety. Last took zoloft in May. She is not on control. She previously was on Corine OCP since 22, off at age 31, when she got . Past Medical History: Diagnosis Date Anxiety and depression (CMS/HCC) Obesity All my life Visual impairment 1999 Past Surgical History: Procedure Laterality Date ADENOIDECTOMY 2002 CHOLECYSTECTOMY 2013 GALLBLADDER 2016 TONSILLECTOMY 2003 WISDOM TOOTH EXTRACTION Social History Socioeconomic History Marital status: Spouse name: Not on file Number of children: Not on file Years of education: Not on file Highest education level: Not on file Occupational History Not on file Tobacco Use Smoking status: Never Smokeless tobacco: Never Tobacco comments: Former smoker, quit in 2020 Substance and Sexual Activity Alcohol use: Yes Comment: On special occasions Drug use: Yes Frequency: 1.0 times per week Types: Marijuana Comment: On occasion, not daily. Sexual activity: Yes Partners: Male control/protection: None Comment: Trying to conceive Other Topics Concern Not on file Social History Narrative Not on file Social Determinants of Health Financial Resource Strain: Low Risk (11/01/2023) Overall Financial Resource Strain (CARDIA) Difficulty of Paying Living Expenses: Not very hard Food Insecurity: No Food Insecurity (11/01/2023) Hunger Vital Sign Worried About Running Out of Food in the Last Year: Never true Ran Out of Food in the Last Year: Never true Transportation Needs: No Transportation Needs (11/01/2023) PRAPARE - Transportation Lack of Transportation (Medical): No Lack of Transportation (Non-Medical): No Physical Activity: Insufficiently Active (11/01/2023) Exercise Vital Sign Days of Exercise per Week: 3 days Minutes of Exercise per Session: 30 min Stress: Stress Concern Present (11/01/2023) [employer] - Occupational Stress Questionnaire Feeling of Stress : To some extent Social Connections: Moderately Isolated (11/01/2023) Social Connection and Isolation Panel [NHANES] Frequency of Communication with Friends and Family: More than three times a week Frequency of Social Gatherings with Friends and Family: Once a week Attends [employer] Services: Never Active Member of Clubs or Organizations: No Attends Club or Organization Meetings: Never Marital Status: Intimate Partner Violence: Not At Risk (11/01/2023) Humiliation, Afraid, Rape, and Kick questionnaire Fear of Current or Ex-Partner: No Emotionally Abused: No Physically Abused: No Sexually Abused: No Housing Stability: Low Risk (11/01/2023) Housing Stability Vital Sign Unable to Pay for Housing in the Last Year: No Number of Places Lived in the Last Year: 1 Unstable Housing in the Last Year: No Family History Problem Relation Name Age of Onset Miscarriages / Stillbirths Mother Jayashree Jaimes Diabetes Father Lenard Jaimes Diabetes Paternal Grandmother Ruby Jaimes Cancer Paternal Grandmother Ruby Jaimes COPD Paternal Grandmother Ruby Jaimes Stroke Maternal Grandmother Lester Powers Mental illness Brother Allen Albrecht Current Outpatient Medications on File Prior to Visit Medication Sig Dispense Refill sertraline (Zoloft) 100 MG tablet TAKE 1 TABLET BY MOUTH EVERY DAY FOR 90 DAYS 90 tablet 3 [DISCONTINUED] medroxyPROGESTERone (Provera) 10 MG tablet 1 (one) time each day at the same time [DISCONTINUED] metFORMIN (Glucophage) 500 MG tablet TAKE 1 TABLET BY MOUTH TWICE A DAY 180 tablet 3 [DISCONTINUED] Tirzepatide (Mounjaro) 2.5 MG/0.5ML solution pen-injector as directed Subcutaneous 2.5 mg weekly [DISCONTINUED] Semaglutide,0.25 or 0.5MG/DOS, (Ozempic, 0.25 or 0.5 MG/DOSE,) 2 MG/3ML solution pen-injector INJECT 0.5 MG UNDER THE SKIN 1 (ONE) TIME PER WEEK. 3 mL 3 No current facility-administered medications on file prior to visit. Care Team Patient Care Team: Portillo Peters MD, IBCLC as PCP - General (Family Medicine) Kushal Benítez DO as Referring Physician (Obstetrics and Gynecology) Objective Vitals: Vitals: 11/02/23 1413 BP: 128/68 Pulse: 76 Temp: 96.4 F SpO2: 98% Physical Exam: Physical Exam Constitutional: General: She is awake. Appearance: She is well-developed. She is obese. HENT: Head: Normocephalic and atraumatic. Right Ear: Tympanic membrane, ear canal and external ear normal. Left Ear: Tympanic membrane, ear canal and external ear normal. Nose: No mucosal edema, congestion or rhinorrhea. Mouth/Throat: Mouth: Mucous membranes are moist. No oral lesions. Dentition: Normal dentition. Eyes: General: No scleral icterus. Extraocular Movements: Extraocular movements intact. Conjunctiva/sclera: Conjunctivae normal. Neck: Thyroid: No thyroid mass, thyromegaly or thyroid tenderness. Cardiovascular: Rate and Rhythm: Normal rate and regular rhythm. Heart sounds: Normal heart sounds, S1 normal and S2 normal. No murmur heard. No friction rub. No gallop. Pulmonary: Effort: Pulmonary effort is normal. Breath sounds: Normal breath sounds. No wheezing, rhonchi or rales. Abdominal: General: Bowel sounds are normal. There is no distension. Palpations: Abdomen is soft. Tenderness: There is no abdominal tenderness. Musculoskeletal: General: Normal range of motion. Cervical back: Normal range of motion and neck supple. Right lower leg: No edema. Left lower leg: No edema. Lymphadenopathy: Cervical: No cervical adenopathy. Skin: General: Skin is warm and dry. Neurological: General: No focal deficit present. Mental Status: She is alert and oriented to person, place, and time. Mental status is at baseline. Sensory: Sensation is intact. Motor: Motor function is intact. Psychiatric: Attention and Perception: Attention normal. Mood and Affect: Affect normal. Speech: Speech normal. Behavior: Behavior is cooperative. Thought Content: Thought content normal. Assessment & Plan Sharlene Arteaga is a 33 y.o. female who presents today to establish care. Problem List Items Addressed This Visit Anxiety - Primary Overview Improved with Zoloft 100mg daily Insulin resistance Irregular menstrual cycle Relevant Orders Cortisol DHEA level 17-Hydroxyprogesterone TSH W/REFLEX TO FT4 Hemoglobin A1c Prolactin level Antimullerian hormone (AMH) Morbid (severe) obesity due to excess calories ([facility]) Relevant Orders Cortisol DHEA level 17-Hydroxyprogesterone TSH W/REFLEX TO FT4 Hemoglobin A1c Prolactin level Antimullerian hormone (AMH) BMI 40.0-44.9, adult ([facility]) Relevant Orders Cortisol DHEA level 17-Hydroxyprogesterone TSH W/REFLEX TO FT4 Hemoglobin A1c Prolactin level Antimullerian hormone (AMH) Prediabetes Overview HEMOGLOBIN A1C Date Value Ref Range Status 11/24/2022 5.9 (H) <5.7 Final Comment: For someone without known diabetes, a hemoglobin A1c value between 5.7% and 6.4% is consistent with prediabetes and should be confirmed with a follow-up test. For someone with known diabetes, a value <7% indicates that their diabetes is well controlled. A1c targets should be individualized based on duration of diabetes, age, comorbid conditions, and other considerations. This assay result is consistent with an increased risk of diabetes. Currently, no consensus exists regarding use of hemoglobin A1c for diagnosis of diabetes for children. Hyperinsulinism Overview INSULIN Date Value Ref Range Status 11/24/2022 39.2 (H) Final Comment: Reference Range < or = 18.4 Risk: Optimal < or = 18.4 Moderate NA High >18.4 Adult cardiovascular event risk category cut points (optimal, moderate, high) are based on Insulin Reference Interval studies performed at [facility] in 2021. 10/22/2021 34.6 (H) Final Comment: Reference Range < or = 19.6 Risk: Optimal < or = 19.6 Moderate NA High >19.6 Adult cardiovascular event risk category cut points (optimal, moderate, high) are based on [facility] population data from 08/2011. This insulin assay shows strong cross-reactivity for some insulin analogs (lispro, aspart, and glargine) and much lower cross-reactivity with others (detemir, glulisine). Relevant Orders Cortisol DHEA level 17-Hydroxyprogesterone TSH W/REFLEX TO FT4 Hemoglobin A1c Prolactin level Antimullerian hormone (AMH) Infertility, female Current Assessment & Plan Suspect PCOS, but she has not had a comprehensive workup to r/o other conditions. She has been on metformin in the past. She is interested in conceiving. We can reconsider metformin if labs are consistent with PCOS to optimize fertility. She has already had a pelvic ultrasound , which showed a few cysts, but otherwise normal. She has an appointment with Dr. Benítez upcoming Relevant Orders Cortisol DHEA level 17-Hydroxyprogesterone TSH W/REFLEX TO FT4 Hemoglobin A1c Prolactin level Antimullerian hormone (AMH) Other Visit Diagnoses Encounter for screening involving social determinants of health (SDoH) Portillo Peters MD, IBCLC [facility] documented in this encounter [facility] Healthcare Instructions 11-02-2023 Patient Instructions Note Date & Type Note Facility 11-02-2023 Instructions Portillo Peters MD, IBCLC - 11/02/2023 2:20 PM EST use documented in this encounter [facility] Healthcare Evaluation + Plan note Note Date & Type Note Facility Evaluation + Plan note No data available for this section [facility] Evaluation note Note Date & Type Note Facility Evaluation note Diagnosis Anxiety- Primary Anxiety state, unspecified Morbid (severe) obesity due to excess calories (E66.01) BMI 40.0-44.9, adult ([facility]) Prediabetes Other abnormal glucose Hyperinsulinism Other specified hypoglycemia Irregular menstrual cycle Infertility, female Encounter for screening involving social determinants of health (SDoH) Insulin resistance Other abnormal glucose documented in this encounter [facility] Healthcare Evaluation note Note Date & Type Note Facility Evaluation note Diagnosis Hyperinsulinism- Primary Other specified hypoglycemia Encounter for preconception consultation documented in this encounter [facility] Healthcare Hospital Discharge instructions Note Date & Type Note Facility Hospital Discharge instructions No data available for this section [facility] Progress note Note Date & Type Note Facility Progress note No data available for this section [facility] Summary Purpose Family History No Family History Records Found No data available for this section No Family History Records FoundNo Family History Records FoundNo Family History Records FoundNo Family History Records FoundNo Family History Records FoundNo Family History Records FoundNo Family History Records FoundNo Family History Records FoundNo Family History Records FoundNo Family History Records FoundNo Family History Records FoundNo Family History Records FoundNo Family History Records FoundNo Family History Records Found Advance Directives No Advanced Directives Records FoundNo Advanced Directives Records FoundNo Advanced Directives Records FoundNo Advanced Directives Records FoundNo Advanced Directives Records FoundNo Advanced Directives Records FoundNo Advanced Directives Records FoundNo Advanced Directives Records FoundNo Advanced Directives Records FoundNo Advanced Directives Records FoundNo Advanced Directives Records FoundNo Advanced Directives Records FoundNo Advanced Directives Records FoundNo Advanced Directives Records FoundNo Advanced Directives Records Found Additional Source Comments INFORMATION SOURCE (unrecogn ized section and content) DATE CREATED AUTHOR 04/19/2020 [facility] DATE CREATED AUTHOR AUTHOR'S ORGANIZ ATION 05/01/2024 [facility] DATE CREATED AUTHOR AUTHOR'S ORGANIZ ATION 05/02/2024 [facility] DATE CREATED AUTHOR AUTHOR'S ORGANIZ ATION 05/08/2024 [facility] DATE CREATED AUTHOR AUTHOR'S ORGANIZ ATION 05/12/2024 [facility] Care Teams (unrecognized sec tion and content) [employer] Relationship Specialty Start Date End Date Portillo Peters MD, IBCLC [address] [place] [id number] PCP - General Family Medicine 11/02/23 Georgette Adair DO [address] [facility] [address] [place] [address] Referring Physician Obstetrics and Gynecology 11/02/23 11/03/23 [employer] Relationship Specialty Start Date End Date Portillo Peters MD, IBCLC [address] [place] [id number] PCP - General Family Medicine 11/02/23 Kushal Benítez DO [address] [place] [address] [place] [address] Referring Physician Obstetrics and Gynecology 11/04/23 [employer] Relationship Specialty Start Date End Date Portillo Peters MD, IBCLC [address] [place] [id number] PCP - General Family Medicine 11/02/23 Kushal Benítez DO [address] [place] [address] [place] [address] Referring Physician Obstetrics and Gynecology 11/04/23 FOR RECORDS PERTAINING TO PATIENTS WHO ARE OR HAVE BEEN ENROLLED IN A CHEMICAL DEPENDENCY/SUBSTANCEABUSE PROGRAM, SOME INFORMATION MAY BE OMITTED. This clinical summary was aggregated from multiple sources. Caution should be exercised in using it in the provision of clinical care. This summary normalizes information from multiple sources, and as a consequence, information in this document may materially change the coding, format and clinical context of patient data. In addition, data may be omitted in some cases. CLINICAL DECISIONS SHOULD BE BASED ON THE PRIMARY CLINICAL RECORDS. [facility]. provides no warranty or guarantee of the accuracy or completeness of information in this document.
== END 2024-05-25 09:24 | disposition home or self-care (01) ==
LOC: NOMS 09:23
PROVIDERS: Visit Provider Obstetrics & Gynecology
DX: N88.3 Incompetence of cervix uteri (principal); Z36.86 Encounter for antenatal screening for cervical length
CPT/HCPCS: 76817

== ENCOUNTER 2024-06-08 20:46 | Outpatient (REF) | payer OTHER, SELFPAY ==
--- OUTSIDE RECORDS SUMMARY | 2024-06-08 20:49 | XMS_ITS | CCD ---
Author Organization [facility] Care Team Providers Care Music Box Mechanic Name Role Phone ELIGIO ACOSTA Primary Care Physician Fran GLORIA, IBCLC, Portillo Primary Care Provid er Georgette Adair DO Unavailable Kushal Benítez DO Unavailable PORTILLO PETERS Primary Care Physician JACKELIN, Kushal R Admitting Unavailable JACKELIN, Kushal R Attending Unavailable JACKELIN, Kushal R Attending Unavailable JACKELIN, Kushal R Admitting Unavailable FRAN, PORTILLO Attending Unavailable FRAN, PORTILLO Attending Unavailable JACKELIN, KUSHAL Attending Unavailable JACKELIN, KUSHAL Attending Unavailable JACKELIN, Kushal R Attending Unavailable JACKELIN, Kushal R Admitting Unavailable JACKELIN, Kushal R Attending Unavailable JACKELIN, Kushal R Admitting Unavailable Allergies Allergy Classification Reported Allergen(s) Allergy Type Date of Onset Reaction(s) Facility (2 sources) No Known Medication Allergies; Translations: [No Known Medication Allergies] Propensity to adverse reactions (disorder) [facility] Repository Medications Current Medications Medication Drug Class(es) Dates Sig (Normalized) Sig (Original) busPIRone (3 sources) Start: 09-22-2021 busPIRone Oral, BID, Refills(s) 0 Start Date: 09/22/21 Status: Ordered Flonase 0.05 mg/inh nasal spray (3 sources) Start: 09-22-2021 Flonase 0.05 mg/inh nasal spray 2 spray(s), Nasal, Daily, 16 gram, Refill(s) 0, each nostril, [facility]/pharmacy #[id number], 152, cm, 09/22/21 14:32:00 EST, Height/Length [...] (Therapy completed) sertraline 100 mg oral tablet (9 sources) Serotonin Reuptake Inhibitor Start: 09-24-2019 take 1 tablet by mouth once daily Zoloft 100 mg Tab 100 mg = 1 tab(s), Oral, Daily, Refills(s) 0 Start Date: 09/24/19 Status: Ordered Sprintec (3 sources) Start: 09-24-2019 take 1 tablet by mouth once daily Sprintec 1 tab(s), Oral, Daily, Refill(s) 0 Start Date: 09/24/19 Status: Ordered Zofran ODT 4 mg Tab-Dis (3 sources) Start: 05-02-2020 take 1 tablet by mouth three times daily Zofran ODT 4 mg Tab-Dis 4 mg = 1 tab(s), Oral, TID, # 15 tab(s), Refills(s) 0 Start Date: 05/02/20 Status: Ordered Completed/Discontinued Medications Medication Drug Class(es) Dates Sig (Normalized) Sig (Original) medroxyPROGESTERone acetate 10 mg oral tablet (2 sources) Progestin Start: 3 End: 4 medroxyPROGESTERone (Provera) 10 MG tablet 1 (one) [...] unspecified] 11-04-2023 Episodic Other upper respiratory infections (4 sources) Acute upper respiratory infection; Translations: [Acute upper respiratory infection, unspecified] Episodic Past or Other Problems Problem Classification Problem Date Documented Da te Episodic/Chronic Viral infection (1 source) Disease caused by 2019-nCoV; Translations: [COVID-19] Results Test Name Value Interpretation Reference Range Facility CHEMISTRYOrdered By: SYSTEM SYSTEM on 06-03-2024 Glucose [Mass/Vol] 207 mg/dL High 55 - 140 mg/dL Remisol Chem Gest Scr Glu 1 Hron 06-03-20 Glucose [Mass/Vol] 207 mg/dL High 55-140 [facility] Comment on above: Performed By: #### 3 [id number] #### [facility] [address] [place] [address] C Urineon 05-01-2024 Bacteria identified Cx Nom [...] Locations R1: This test was performed at: [facility], [address] [place] [address], [phone] , , [facility] Comment on above: Performed By: #### 2 [id number] #### [facility] [address] [place] [address] .Interpretation:on HCV Ab IA Ql Comment Invalid Interpretation Code [facility] Comment on above: Result Comment: Not infected with HCV unless early or acute infection is suspected (which may be delayed in an immunocompromised individual), or other evidence exists to indicate HCV infection. Performed at: [address] [id number] PhD Wiliam Mendoza Performed By: #### 2 [id number] #### [facility] [address] [place] [address] HCV Antibody RFX to Quant PC Eugenio 04-30-2024 HCV IgG IA Ql Non-Reactive Invalid Interpretation Code Non Reactive [facility] Comment on above: Result Comment: Perf ormed at: [address] [id number] PhD Wiliam Mendoza Performed By: #### 2 [id number] #### [facility] [address] [place] [address] HIV Screen 4th Generation wR fxon 04-30-2024 HIV 1+2 Ab+HIV1 p24 Ag IA Ql Non-Reactive Invalid Interpretation Code Non Reactive [facility] Comment on above: Result Comment: HIV Negative HIV-1/HIV-2 antibodies and HIV-1 p24 antigen were NOT detected. There is no laboratory evidence of HIV infection. Performed at: [address] [id number] PhD Wiliam Mendoza Performed By: #### 9 [id number] #### [facility] [address] [place] [address] Hep Bs Agon 04-30-2024 HBV surface Ag IA Ql Negative Invalid Interpretation Code Negative [facility] Comment on above: Result Comment: Perf ormed at: [address] [id number] PhD Wiliam Mendoza Performed By: #### 2 [id number] #### [facility] [address] [place] [address] [id number] 04-30-2024 HbA1c (Bld) [Mass fraction] 5.3 % Normal <=5.9 [facility] Comment on above: Performed By: #### 7 [id number] #### [facility] [address] [place] [address] RPR with Conf Rfxon 04-30-20 24 Reagin Ab RPR Ql (S) Non-Reactive Invalid Interpretation Code Non Reactive [facility] Comment on above: Result Comment: Perf ormed at: [address] [id number] PhD Wiliam Mendoza Performed By: #### 1 [id number] #### [facility] [address] [place] [address] Rubella IgGon 04-30-2024 Rubella virus IgG Qn (S) 1.76 [IU]/mL Invalid Interpretation Code Immune >0.99 [facility] Comment on above: Result Comment: Non- immune <0.90 Equivocal 0.90 - 0.99 Immune >0.99 Performed at: [address] [id number] PhD Wiliam Mendoza Performed By: #### 1 [id number] #### [facility] [address] [place] [address] ABO/Rhon 04-29-2024 ABO/Rh AB NEG Invalid Interpretation Code [facility] Comment on above: Performed By: #### 2 [id number] #### [facility] [address] [place] [address] ABSCon 04-29-2024 ABSC Gel Interp Negative Normal [facility] Comment on above: Performed By: #### 1 [id number] #### [facility] [address] [place] [address] BLOOD BANKOrdered By: Rand Sol on 04-29-2024 ABO/Rh Interp AB NEG Invalid Interpretation Code FT BB Subsection ABSC Gel Interp Negative (04/29/24 10:03 AM) Normal [facility] BB Subsection CBC w/ Auto Diffon 4 Basophils/100 WBC (Bld) 0.2 % Normal 0.0-2.0 [facility] Comment on above: Performed By: #### 2 [id number] #### [facility] [address] [place] [address] Basophils/Leukocytes Auto (Bld) [Pure # fraction] 0.0 E9/L Normal 0.0-0.2 [facility] Comment on above: Performed By: #### 2 [id number] #### [facility] [address] [place] [address] Eosinophils (Bld) [#/Vol] 0.1 E9/L Normal 0.0-0.5 [facility] Comment on above: Performed By: #### 2 [id number] #### [facility] [address] [place] [address] Eosinophils/100 WBC (Bld) 1.1 % Normal 0.0-8.0 [facility] Comment on above: Performed By: #### 2 [id number] #### [facility] [address] [place] [address] Erythrocyte distribution width (RBC) [Ratio] 14.2 % Normal 10.9-14.2 [facility] Comment on above: Performed By: #### 2 [id number] #### [facility] [address] [place] [address] Hematocrit (Bld) [Volume fraction] 38.3 % Normal 34.0-46.0 [facility] Comment on above: Performed By: #### 2 [id number] #### [facility] [address] [place] [address] Hemoglobin (Bld) [Mass/Vol] 13.5 g/dL Normal 12.0-16.0 [facility] Comment on above: Performed By: #### 2 [id number] #### [facility] [address] [place] [address] Lymphocytes (Bld) [#/Vol] 2.2 E9/L Normal 1.0-4.0 [facility] Comment on above: Performed By: #### 2 [id number] #### [facility] [address] [place] [address] Lymphocytes/100 WBC (Bld) 25.1 % Normal 14.0-50.0 [facility] Comment on above: Performed By: #### 2 [id number] #### [facility] [address] [place] [address] MCH (RBC) [Entitic mass] 29.3 pg Normal 27.0-34.0 [facility] Comment on above: Performed By: #### 2 [id number] #### [facility] [address] [place] [address] MCHC (RBC) [Mass/Vol] 35.2 g/dL Normal 31.4-36.0 [facility] Comment on above: Performed By: #### 2 [id number] #### [facility] [address] [place] [address] MCV (RBC) [Entitic vol] 83.3 fL Normal 80.0-100.0 [facility] Comment on above: Performed By: #### 2 [id number] #### [facility] [address] [place] [address] Monocytes (Bld) [#/Vol] 0.5 E9/L Normal 0.2-1.0 [facility] Comment on above: Performed By: #### 2 [id number] #### [facility] [address] [place] [address] Neutrophils (Bld) [#/Vol] 5.8 E9/L Normal 2.0-7.5 [facility] Comment on above: Performed By: #### 2 [id number] #### [facility] [address] [place] [address] Neutrophils/100 WBC (Bld) 67.6 % Normal 36.0-75.0 [facility] Comment on above: Performed By: #### 2 [id number] #### [facility] [address] [place] [address] Platelet 354.0 E9/L Normal 150.0-500.0 [facility] Comment on above: Performed By: #### 2 [id number] #### [facility] [address] [place] [address] Platelet mean volume (Bld) [Entitic vol] 7.9 fL Normal 6.4-10.8 [facility] Comment on above: Performed By: #### 2 [id number] #### [facility] [address] [place] [address] RBC (Bld) [#/Vol] 4.6 E12/L Normal 4.3-5.9 [facility] Comment on above: Performed By: #### 2 [id number] #### [facility] [address] [place] [address] WBC corrected for nucl RBC Auto (Bld) [#/Vol] 8.6 E9/L Normal 4.0-11.0 [facility] Comment on above: Performed By: #### 2 [id number] #### [facility] [address] [place] [address] HEMATOLOGYOrdered By: SYSTEM SYSTEM on 04-29-2024 Basophils/100 [...] (U) 3+ /HPF Abnormal Trace Fish er [facility] Comment on above: Performed By: #### 4 [id number] #### [facility] [address] [place] [address] Bilirubin Ql (U) Negative Normal Negative [facility] Comment on above: Performed By: #### 4 [id number] #### [facility] [address] [place] [address] Clarity (U) Clear Normal Clear [facility] Comment on above: Performed By: #### 4 [id number] #### [facility] [address] [place] [address] Color (U) Light-Yellow Normal Yellow [facility] Comment on above: Result Comment: Micr oscopic readings are only performed on those samples that meet specific criteria set forth by [facility]. Performed By: #### 4 [id number] #### [facility] [address] [place] [address] Epithelial cells.squamous Auto (Urine sed) [#/Area] 0-2 Invalid Interpretation Code [facility] Comment on above: Performed By: #### 4 [id number] #### [facility] [address] [place] [address] Glucose Ql (U) Negative Normal Negative [facility] Comment on above: Performed By: #### 4 [id number] #### [facility] [address] [place] [address] Hemoglobin Auto test strip (U) [Mass/Vol] Negative Normal Negative [facility] Comment on above: Performed By: #### 4 [id number] #### [facility] [address] [place] [address] Ketones Auto test strip Ql (U) Negative Normal Negative [facility] Comment on above: Performed By: #### 4 [id number] #### [facility] [address] [place] [address] Leukocyte esterase Auto test strip Ql (U) 75 Anna/uL Abnormal Negative [facility] Comment on above: Performed By: #### 4 [id number] #### [facility] [address] [place] [address] Mucus Auto Ql (U) Trace Normal Negative [facility] Comment on above: Performed By: #### 4 [id number] #### [facility] [address] [place] [address] Nitrite Auto test strip Ql (U) Negative Normal Negative [facility] Comment on above: Performed By: #### 4 [id number] #### [facility] [address] [place] [address] pH (U) 5.5 [pH] Invalid Interpretation Code 5.0-9.0 [facility] Comment on above: Performed By: #### 4 [id number] #### [facility] [address] [place] [address] Protein Ql (U) Negative Normal Negative [facility] Comment on above: Performed By: #### 4 [id number] #### [facility] [address] [place] [address] Specific gravity (U) [Rel density] 1.007 Invalid Interpretation Code 1.005-1.030 [facility] Comment on above: Performed By: #### 4 [id number] #### [facility] [address] [place] [address] Urobilinogen (U) [Mass/Vol] Negative Normal Negative [facility] Comment on above: Performed By: #### 4 [id number] #### [facility] [address] [place] [address] WBC Auto (Urine sed) [#/Area] 0-5 Normal 0-5 [facility] Comment on above: Performed By: #### 4 [id number] #### [facility] [address] [place] [address] Type of Urine collection method Clean Catch Normal [facility] Comment on above: Performed By: #### 4 [id number] #### [facility] [address] [place] [address] URINALYSISOrdered By: SYSTEM SYSTEM on 04-29-2024 Bacteria Auto Ql (U) 3+ /HPF Invalid Interpretation Code Trace/HPF [facility] UA Auto SS Bilirubin Ql (U) Negative Normal Negativemg/ d L [facility] UA Auto SS Clarity (U) Clear (04/29/24 9:54 AM) Normal Clear [facility] UA Auto SS Color (U) Light-Yellow 1 (04/29/24 9:54 AM) Normal Yellow FT UA Auto SS Comment on above: Interpretive Data: M icroscopic readings are only performed on those samples that meet specific criteria set forth by [facility]. Epithelial cells.squamous Auto (Urine sed) [...] UA Auto SS pH (U) 5.5 *NA* (04/29/24 9:54 AM) Invalid Interpretation Code 5.0 - [...] Auto SS MICRO OTHER TESTSOrdered By: Trisha Case on 09-23-2021 Influenzae A Ag Negative (09/23/21 [...] Basophils (Bld) [#/Vol] 0.0 10*3/uL Normal 0.0-0.2 [facility] Comment on above: Performed By: #### C BCWD #### [facility] [address] [place] [address] Basophils/100 WBC (Bld) 0.3 % Normal [facility] Comment on above: Performed By: #### C BCWD #### [facility] [address] [place] [address] Eosinophils (Bld) [#/Vol] 0.1 10*3/uL Normal 0.0-0.7 [facility] Comment on above: Performed By: #### C BCWD #### [facility] [address] [place] [address] Eosinophils/100 WBC (Bld) 1.1 % Normal [facility] Comment on above: Performed By: #### C BCWD #### [facility] [address] [place] [address] Erythrocyte distribution width (RBC) [Ratio] 15.4 % Critically high 11.5-14.5 [facility] Comment on above: Performed By: #### C BCWD #### [facility] [address] [place] [address] Hematocrit (Bld) [Volume fraction] 40.3 % Normal 37.0-47.0 [facility] Comment on above: Performed By: #### C BCWD #### [facility] [address] [place] [address] Hemoglobin (Bld) [Mass/Vol] 13.2 g/dL Normal 12.0-16.0 [facility] Comment on above: Performed By: #### C BCWD #### [facility] [address] [place] [address] Lymphocytes (Bld) [#/Vol] 2.3 10*3/uL Normal 1.0-4.8 [facility] Comment on above: Performed By: #### C BCWD #### [facility] [address] [place] [address] Lymphocytes/100 WBC (Bld) 25.1 % Normal [facility] Comment on above: Performed By: #### C BCWD #### [facility] [address] [place] [address] MCH (RBC) [Entitic mass] 27.4 pg Normal 27.0-31.3 [facility] Comment on above: Performed By: #### C BCWD #### [facility] [address] [place] [address] MCHC (RBC) [Mass/Vol] 32.8 % Low 33.0-37.0 [facility] Comment on above: Performed By: #### C BCWD #### [facility] [address] [place] [address] MCV (RBC) [Entitic vol] 83.7 fL Normal 82.0-100.0 [facility] Comment on above: Performed By: #### C BCWD #### [facility] [address] [place] [address] Monocytes (Bld) [#/Vol] 0.6 10*3/uL Normal 0.2-0.8 [facility] Comment on above: Performed By: #### C BCWD #### [facility] [address] [place] [address] Monocytes/100 WBC (Bld) 7.0 % Normal [facility] Comment on above: Performed By: #### C BCWD #### [facility] [address] [place] [address] Neutrophils (Bld) [#/Vol] 6.2 10*3/uL Normal 1.4-6.5 [facility] Comment on above: Performed By: #### C BCWD #### [facility] [address] [place] [address] Neutrophils/100 WBC (Bld) 66.5 % Normal [facility] Comment on above: Performed By: #### C BCWD #### [facility] [address] [place] [address] Platelets (Bld) [#/Vol] 308 10*3/uL Normal 130-400 [facility] Comment on above: Performed By: #### C BCWD #### [facility] [address] [place] [address] RBC (Bld) [#/Vol] 4.81 10*6/uL Normal 4.20-5.40 [facility] Comment on above: Performed By: #### C BCWD #### [facility] [address] [place] [address] WBC (Bld) [#/Vol] 9.3 10*3/uL Normal 4.8-10.8 [facility] Comment on above: Performed By: #### C BCWD #### [facility] [address] [place] [address] Comprehensive Metabolic Pane leidy 04-02-2020 Albumin [Mass/Vol] 3.9 g/dL Normal 3.5-4.6 [facility] Comment on above: Performed By: #### C MP #### [facility] [address] [place] [address] ALP [Catalytic activity/Vol] 75 U/L Normal 40-130 [facility] Comment on above: Performed By: #### C MP #### [facility] [address] [place] [address] ALT [Catalytic activity/Vol] 18 U/L Normal 0-33 [facility] Comment on above: Performed By: #### C MP #### [facility] [address] [place] [address] Anion gap [Moles/Vol] 11 mmol/L Normal 9-15 [facility] Comment on above: Performed By: #### C MP #### [facility] [address] [place] [address] AST [Catalytic activity/Vol] 22 U/L Normal 0-35 [facility] Comment on above: Performed By: #### C MP #### [facility] [address] [place] [address] Bilirubin [Mass/Vol] mg/dL Normal 0.2-0.7 [facility] Comment on above: Performed By: #### C MP #### [facility] [address] [place] [address] Calcium [Mass/Vol] 9.1 mg/dL Normal 8.5-9.9 [facility] Comment on above: Performed By: #### C MP #### [facility] [address] [place] [address] Chloride [Moles/Vol] 103 mmol/L Normal 95-107 [facility] Comment on above: Performed By: #### C MP #### [facility] [address] [place] [address] CO2 [Moles/Vol] 23 mmol/L Normal 20-31 [facility] Comment on above: Performed By: #### C MP #### [facility] [address] [place] [address] Creatinine [Mass/Vol] 0.66 mg/dL Normal 0.50-0.90 [facility] Comment on above: Performed By: #### C MP #### [facility] [address] [place] [address] GFR/1.73 sq M predicted among blacks MDRD (S/P/Bld) [Vol rate/Area] mL/min/{1.73_m2} Normal >60 [facility] Comment on above: Result Comment: >60 mL/min/1.73m2 EGFR, calc. for ages 18 and older using the MDRD formula (not corrected for weight), is valid for stable renal function. Performed By: #### C MP #### [facility] [address] [place] [address] GFR/1.73 sq M.predicted MDRD (S/P/Bld) [Vol rate/Area] mL/min/{1.73_m2} Normal >60 [facility] Comment on above: Result Comment: >60 mL/min/1.73m2 EGFR, calc. for ages 18 and older using the MDRD formula (not corrected for weight), is valid for stable renal function. Performed By: #### C MP #### [facility] [address] [place] [address] Globulin (S) [Mass/Vol] 3.1 g/dL Normal 2.3-3.5 [facility] Comment on above: Performed By: #### C MP #### [facility] [address] [place] [address] Glucose [Mass/Vol] 74 mg/dL Normal 70-99 [facility] Comment on above: Performed By: #### C MP #### [facility] [address] [place] [address] Potassium [Moles/Vol] 4.4 mmol/L Normal 3.4-4.9 [facility] Comment on above: Performed By: #### C MP #### [facility] [address] [place] [address] Protein [Mass/Vol] 7.0 g/dL Normal 6.3-8.0 [facility] Comment on above: Performed By: #### C MP #### [facility] [address] [place] [address] Sodium [Moles/Vol] 137 mmol/L Normal 135-144 [facility] Comment on above: Performed By: #### C MP #### [facility] [address] [place] [address] Urea nitrogen [Mass/Vol] 16 mg/dL Normal 6-20 [facility] Comment on above: Performed By: #### C MP #### [facility] [address] [place] [address] Hemoglobin A1con 04-02-2020 HbA1c (Bld) [Mass fraction] 5.8 % Normal 4.8-5.9 [facility] Comment on above: Performed By: #### A 1C #### [facility] [address] [place] [address] TSH w/Reflexon 04-02-2020 TSH Qn 3.260 uIU/mL Normal 0.440-3.86 [facility] Comment on above: Performed By: #### T SHR #### [facility] [address] [place] [address] Vital Signs Date Time Vital Sign Value Performing Clinician Faci lity 11-11-2023 13:56-0500 Body height 152.4 cm Portillo Peters MD, IBCLC Work Phone: [facility] 11-11-2023 13:56-0500 Body mass index (BMI) [Ratio] 43.71 kg/m2 Portillo Peters MD, IBCLC Work Phone: [facility] 11-11-2023 13:56-0500 Body temperature 96.49 [degF] Portillo Peters MD, IBCLC Work Phone: [facility] 11-11-2023 13:56-0500 Body weight 101.52 kg Portillo Peters MD, IBCLC Work Phone: [facility] 11-11-2023 13:56-0500 Diastolic blood pressure 68 mm[Hg] Portillo Peters MD, IBCLC Work Phone: [facility] 11-11-2023 13:56-0500 Heart rate 86 /min Portillo Peters MD, IBCLC Work Phone: [facility] 11-11-2023 13:56-0500 SaO2% (BldA) [Mass fraction] 99 % Portillo Peters MD, IBCLC Work Phone: [facility] 11-11-2023 13:56-0500 Systolic blood pressure 120 mm[Hg] Portillo Peters MD, IBCLC Work Phone: [facility] 11-02-2023 14:13-0500 Body height 152.4 cm Portillo Peters MD, IBCLC Work Phone: [facility] 11-02-2023 14:13-0500 Body mass index (BMI) [Ratio] 44.57 kg/m2 Portillo Peters MD, IBCLC Work Phone: [facility] 11-02-2023 14:13-0500 Body temperature 96.4 [degF] Portillo Peters MD, IBCLC Work Phone: [facility] 11-02-2023 14:13-0500 Body weight 103.51 kg Portillo Peters MD, IBCLC Work Phone: [facility] 11-02-2023 14:13-0500 Diastolic blood pressure 68 mm[Hg] Portillo Peters MD, IBCLC Work Phone: [facility] 11-02-2023 14:13-0500 Heart rate 76 /min Portillo Peters MD, IBCLC Work Phone: [facility] 11-02-2023 14:13-0500 SaO2% (BldA) [Mass fraction] 98 % Portillo Peters MD, IBCLC Work Phone: [facility] 11-02-2023 14:13-0500 Systolic blood pressure 128 mm[Hg] Portillo Peters MD, IBCLC Work Phone: [facility] Healthcare Encounters Encounter Date Encounter Type Care Provider Facility Start: 06-03-2024 End: 06-03-2024 ambulatory Kushal R JACKELIN Facility[facility] Start: 06-03-2024 End: 06-03-2024 Patient encounter procedure Kushal R JACKELIN [facility] Start: 05-11-2024 End: 05-11-2024 ambulatory KUSHAL JACKELIN Not Available Start: 04-29-2024 End: 04-29-2024 ambulatory Kushal R JACKELIN Facility:[facility] Start: 04-29-2024 End: 04-29-2024 Patient encounter procedure Kushal R JACKELIN [facility] Start: 04-13-2024 End: 04-13-2024 ambulatory PORTILLO FRAN Not Available Start: 11-16-2023 End: 11-16-2023 ambulatory KUSHAL JACKELIN Not Available Start: 11-11-2023 Bamboo flowsheet Portillo caballero MD, IBCLC Work Phone: [facility] Start: 11-11-2023 Bamboo flowsheet Portillo caballero MD, IBCLC Work Phone: [facility] Start: 11-11-2023 End: 11-11-2023 Office outpatient visit 25 minutes [facility] Comment on above: Hyperinsulinism (Lanie zarina Dx); Encounter for preconception consultation Start: 11-11-2023 End: 11-11-2023 ambulatory PORTILLO FRAN Not Available Start: 11-07-2023 Chart abstracting [facility] Work Phone[facility] Start: 11-02-2023 End: 11-02-2023 Office outpatient new 45 minutes Portillo Peters MD, IBCLC Work Phone: [facility] Comment on above: Anxiety (Primary Dx) ; Morbid (severe) obesity due to excess calories (E66.01); BMI 40.0-44.9, adult (CMS/HCC); Prediabetes; Hyperinsulinism; Irregular menstrual cycle; Infertility, female; Encounter for screening involving social determinants of health (SDoH); Insulin resistance Start: 11-02-2023 End: 11-02-2023 ambulatory PORTILLO FRAN Not Available Start: 09-22-2021 End: 12-22-2021 Recurring Pari Hernandes [facility] Procedures Date Procedure Procedure Detail Performing Clinician Cholecystectomy Pari camara Structure of wisdom tooth (body structure) Pari Hernandes Comment on above: x4 Tonsillectomy and adenoidectomy Pari Hernandes Plan of Treatment Date Care Activity Detail Author Start: 01-02-2028 Screening for malign ant neoplasm of cervix [facility] Start: 03-26-2024 Influenza vaccination Influenza Vacc ine (#1) [facility] Comment on above: Postponed from 05/28 (Patient Refused) Start: 11-16-2023 End: 11-16-2023 Patient encounter procedure 11/16/2023 9:10 AM EST Office Visit [facility] [address] [place] [id number] Kushal Benítez, DO [address] [place] [address] [facility] Start: 11-11-2023 End: 11-11-2023 Patient encounter procedure [facility] Comment on above: Arrived Start: 11-02-2023 End: 11-02-2024 17-Hydroxyprogesterone 17-Hydroxyprogesterone Lab Routine Morbid (severe) obesity due to excess calories (E66.01) BMI 40.0-44.9, adult (CMS/HCC) Hyperinsulinism Irregular menstrual cycle Infertility, female Expected: 11/02/2023 (Approximate), Expires: 11/02/2024 [facility] Comment on above: Expected: 11/02/2023 (Approximate), Expires: 11/02/2024 Start: 11-02-2023 End: 11-02-2024 Antimullerian hormone (AMH) Antimullerian hormone (AMH) Lab Routine Morbid (severe) obesity due to excess calories (E66.01) BMI 40.0-44.9, adult (CMS/HCC) Hyperinsulinism Irregular menstrual cycle Infertility, female Expected: 11/02/2023 (Approximate), Expires: 11/02/2024 [facility] Comment on above: Expected: 11/02/2023 (Approximate), Expires: 11/02/2024 Start: 11-02-2023 End: 11-02-2024 Cortisol Cortisol Lab Routine Morbid (severe) obesity due to excess calories (E66.01) BMI 40.0-44.9, adult (CMS/HCC) Hyperinsulinism Irregular menstrual cycle Infertility, female Expected: 11/02/2023 (Approximate), Expires: 11/02/2024 [facility] Work Phone: Comment on above: Expected: 11/02/2023 (Approximate), Expires: 11/02/2024 Start: 11-02-2023 End: 11-02-2024 DHEA level DHEA level Lab Routine Morbid (severe) obesity due to excess calories (E66.01) BMI 40.0-44.9, adult (CMS/HCC) Hyperinsulinism Irregular menstrual cycle Infertility, female Expected: 11/02/2023 (Approximate), Expires: 11/02/2024 [facility] Comment on above: Expected: 11/02/2023 (Approximate), Expires: 11/02/2024 Start: 11-02-2023 End: 11-02-2024 Hemoglobin A1c measurement Hemoglobin A1c Lab Routine Morbid (severe) obesity due to excess calories (E66.01) BMI 40.0-44.9, adult (CMS/HCC) Hyperinsulinism Irregular menstrual cycle Infertility, female Expected: 11/02/2023 (Approximate), Expires: 11/02/2024 [facility] Comment on above: Expected: 11/02/2023 (Approximate), Expires: 11/02/2024 Start: 11-02-2023 End: 11-02-2024 Prolactin level Prolactin level Lab Routine Morbid (severe) obesity due to excess calories (E66.01) BMI 40.0-44.9, adult (CMS/HCC) Hyperinsulinism Irregular menstrual cycle Infertility, female Expected: 11/02/2023 (Approximate), Expires: 11/02/2024 [facility] Comment on above: Expected: 11/02/2023 (Approximate), Expires: 11/02/2024 Start: 11-02-2023 End: 11-02-2024 TSH W/REFLEX TO FT4 TSH W/REFLEX TO FT4 Lab Routine Morbid (severe) obesity due to excess calories (E66.01) BMI 40.0-44.9, adult (CMS/HCC) Hyperinsulinism Irregular menstrual cycle Infertility, female Expected: 11/02/2023 (Approximate), Expires: 11/02/2024 [facility] Comment on above: Expected: 11/02/2023 (Approximate), Expires: 11/02/2024 Start: 2012 Screening for malign ant neoplasm of cervix Pap Smear [facility] Payers Date Payer Category Payer Unknown [id number] 2023 Unknown [id number] 1991 Unknown [id number] [id number] 1991 Unknown [id number] [id number] [id number] 1991 Unknown [id number] [id number] [id number] 1991 Unknown [id number] 2.16.84 [id number] 1991 Unknown [id number] 2.16.84 [id number] 1991 Unknown [id number] [id number] [id number] 1991 Unknown [id number] [id number] Social History Date Type Detail Facility Start: 09-22-2021 Tobacco smoking status Ex-smoker (fi nding) [facility] Tobacco smoking status Never [facility] Start: 11-01-2023 End: 11-11-2023 Sex Assigned At Female [facility] Start: 11-02-2023 Tobacco smoking stat [facility] Never smoked tobacco [facility] Start: 11-02-2023 [...] Sex Assigned At Not on file [facility] Evaluation + Plan note 04-29-2024 Note Date & Type Note Facility 04-29-2024 Evaluation + Plan note Diagnostic Tests [id number] 04/29/24RPR with Conf Rfx 04/29/24Rubella Antibody IgG 04/29/24epatitis B Surface Antigen 04/29/24CV Antibody RFX to Quant PCR 04/29/24IV Screen 4th Generation wRfx 04/29/24Urine Culture 04/29/24 [facility] History of Present illness Narrative 11-11-2023 Portillo [...] in the past. Periods are unpredictable since Oz, since June 2022. Past medical history, allergies, [...] consider Clomid Portillo Peters MD, IBCLC [facility] documented in this encounter [facility] Instructions 11-11-2023 Patient Instructions Note Date & Type Note Facility 11-11-2023 Instructions Portillo Peters MD, IBCLC - 11/11/2023 2:00 PM EST Metformin 500mg tablets Week 1: 500mg daily Week 2: 500mg twice a day Week 3: 1000mg twice a day documented in this encounter [facility] History of Present illness Narrative 11-04-2023 Portillo Peters MD, IBCLC - 11/04/2023 9:08 AM Sebastien Peters MD, IBCLC - 11/02/2023 2:20 PM [...] at the end. 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 Patient admits to depression. She has been [...] 30 min Stress: Stress Concern Present (11/01/2023) [employer] - Occupational Stress Questionnaire Feeling of Stress : To some extent Social Connections: Moderately Isolated (11/01/2023) Social Connection and Isolation Panel [NHANES] Frequency of Communication with Friends and Family: More than three times a week Frequency of Social Gatherings with Friends and Family: Once a week Attends Jainism Services: Never Active Member of Clubs or [...] Father Lenard Jaimes Diabetes Paternal Grandmother Ruby Moorel Cancer Paternal Grandmother Ruby Moorel COPD Paternal Grandmother Ruby Jaimes Stroke Maternal Grandmother Lester Priya Mental illness Brother Allen Albrecht Current Outpatient [...] Morbid (severe) obesity due to excess calories ([facility]) Relevant Orders Cortisol DHEA level 17-Hydroxyprogesterone TSH W/REFLEX TO FT4 Hemoglobin A1c Prolactin level Antimullerian hormone (AMH) BMI 40.0-44.9, adult ([facility]) Relevant Orders Cortisol DHEA level 17-Hydroxyprogesterone TSH [...] on Insulin Reference Interval studies performed at [employer] in 2021. 10/22/2021 34.6 (H) Final Comment: Reference Range < or = 19.6 Risk: Optimal < or = 19.6 Moderate NA High >19.6 Adult cardiovascular event risk category cut points (optimal, moderate, high) are based on [employer] population data from 08/2011. This insulin assay [...] health (SDoH) Portillo Peters MD, IBCLC [facility] documented in this encounter [facility] Instructions 11-02-2023 Patient Instructions Note Date & Type Note Facility 11-02-2023 Instructions Portillo Peters MD, IBCLC - 11/02/2023 2:20 PM EST use documented in this encounter [facility] Healthcare Evaluation + Plan note Note Date & Type Note Facility Evaluation + Plan note No data available for this section [facility] Evaluation note Note Date & Type Note Facility Evaluation note Diagnosis Anxiety- Primary Anxiety state, unspecified Morbid (severe) obesity due to excess calories (E66.01) BMI 40.0-44.9, adult ([facility]) Prediabetes Other abnormal glucose Hyperinsulinism Other specified hypoglycemia Irregular menstrual cycle Infertility, female Encounter for screening involving social determinants of health (SDoH) Insulin resistance Other abnormal glucose documented in this encounter [facility] Healthcare Evaluation note Note Date & Type Note Facility Evaluation note Diagnosis Hyperinsulinism- Primary Other specified hypoglycemia Encounter for preconception consultation documented in this encounter [facility] Hospital Discharge instructions Note Date & Type Note Facility Hospital Discharge instructions No data available for this section [facility] Progress note Note Date & Type Note Facility Progress note No data available for this section [facility] Summary Purpose Family History No Family History [...] History Records FoundNo Family History Records Found No data available [...] section and content) DATE CREATED AUTHOR [facility]19/[facility] [place] DATE CREATED AUTHOR AUTHOR'S ORGANIZ ATION 05/01/2024 [facility] DATE CREATED AUTHOR AUTHOR'S ORGANIZ ATION 05/02/2024 [facility] DATE CREATED AUTHOR AUTHOR'S ORGANIZ ATION 05/12/2024 [facility] EPIC DATE CREATED AUTHOR AUTHOR'S ORGANIZ ATION 06/05/2024 [facility] DATE CREATED AUTHOR AUTHOR'S ORGANIZ ATION 06/04/2024 [facility] Care Teams (unrecognized sec tion and content) Music Box Mechanic Relationship Specialty Start Date End Date Portillo Peters MD, IBCLC [address] [place] [address] PCP - General Family Medicine 11/02/23 Georgette Adair DO [address] [place] [address] Referring Physician Obstetrics and Gynecology 11/02/23 11/03/23 Music Box Mechanic Relationship Specialty Start Date End Date Portillo Peters MD, IBCLC [address] [place] [address] PCP - General Family Medicine 11/02/23 Kushal Benítez, DO [address] [place], [place] [address] [address] Referring Physician Obstetrics and Gynecology 11/04/23 Music Box Mechanic Relationship Specialty Start Date End Date Portillo Peters MD, IBCLC [address] [place] [address] PCP - General Family Medicine 11/02/23 Kushal Benítez, DO [address] [place], [place] [address] [address] Referring Physician Obstetrics and Gynecology 11/04/23 FOR [...] BE BASED ON THE PRIMARY CLINICAL RECORDS. [employer] [facility]. provides no warranty or guarantee of the accuracy or completeness of information in this document.
[2024-06-13 13:08] LABS: Age Gdln ACOG Testing Note (.); HPV Aptima Negative (Negative); IGP, Aptima HPV, rfx 16/18,45 Note (.)
== END 2024-06-08 20:47 | disposition home or self-care (01) ==
LOC: LAB 20:46
PROVIDERS: Visit Provider Obstetrics & Gynecology
DX: Z01.419 Encounter for gynecological examination (general) (routine) without abnormal findings (principal)
CPT/HCPCS: 87624; 88175

== ENCOUNTER 2025-03-12 07:23 | Day surgery (SDC) | payer OTHER, SELFPAY ==
--- OUTSIDE RECORDS SUMMARY | 2024-06-13 09:34 | XMS_ITS | Encounter Summary ---
Author Organization [facility] tem Address [id number] [address] [place] [address] Care Team Providers Care Cognos Bi Administrator Name Role Phone Ivelisse Peters MD Primary Care Provider [phone] Encounter Details Date Type Department Care Team (Late st Contact Info) Description 06/13/2024 9:34 AM EDT Hospital Encounter [facility] - Labor [address] [place] [id number] Justen Bird MD [address] [place] [address], [address] [address] Social History Tobacco Use Types Packs/Day Years Used Date Smoking Tobacco: Never Smokeless Tobacco: Never Alcohol Use Standard Drinks/Week Comments Never 0 (1 standard drink = 0.6 oz pur e alcohol) Hunger Screening Answer Date Recorded Within the past 12 months we worried whether our food would run out before we got money to buy more. Never True 06/13/2024 Within the past 12 months th e food we bought just didn't last and we didn't have money to get more. Never True 06/13/2024 Comments No Sex and Gender Information Value Date Recorded Sex Assigned at Not on file Legal Sex Female 9:34 AM EDT Gender Identity Not on file Sexual Orientation Not on file documented as of this encounter Functional Status documented as of this encounter Discharge Summaries * Deborah Hastings MD - 06/19/2024 11:55 PM EDT Discharge Summary Reason for admission: Pre viable labor Principal diagnosis: labor Secondary diagnosis: - Short cervical length - failed early 1 hour glucose tolerance test Procedures: Spontaneous vaginal delivery of fetus, suction D&C for retained placenta Hospital course: Sharlene Arteaga is a 34 y.o. who presented to [facility] on June 13 with concerns of bulging bag of membranes. And the patient had completely dilated cervix and progressed withlabor. She delivered a fetus born without respirations or heartbeat. The patient had been given Cytotec after delivery of the fetus to aid with delivery of the placenta due to cord avulsion. Despite a administration of Cytotec placenta remained in utero requiring a suction D&C for removal. Suction D&C was complicated by a hemorrhage requiring , Hemabate, TXA, Cytotec. [facility]. Patient was discharged on day 1 when she was meeting milestones. Laboratory Results: Lab Results Component Value Date WBC 15.1 (H) 06/15/2024 HGB 10.0 (L) 06/15/2024 HCT 28.9 (L) 06/15/2024 MCV 83 06/15/2024 PLT 262 06/15/2024 No results found for: GLU , CALCIUM , NA , K , CO2 , BUN , CREATININE Prescriptions given at discharge: Colace 100mg daily prn constipation Tylenol 1000mg q6h prn Motrin 800mg q8h prn Condition of patient at discharge: Stable, good. Special instructions to the patient family: 1. Pelvic rest for 6 weeks, nothing in the vagina no tampons, douches, or intercourse. 2. Please call if fever greater than 100.3, chills, malodorous vaginal discharge, or other signs ofinfection. 3. Please call if chest pain, shortness of breath, asymmetrical leg swelling or calf tenderness develops. 4. Please call if bleeding through more than 1 pad per hour. Recommendations for follow-up care: 1. Please follow up with your CARDIOPULMONARY SUPERVISOR in 1 weeks for mood check and follow up. Disposition: home Deborah Hastings MD Care Management Assistant Resident PGY-4 06/19/24 11:56 PM Cosigned by Justen Bird MD at 06/26/2024 1:19 PM EDT Associated attestation - Justen Bird MD - 06/26/2024 1:19 PM EDT I reviewed the resident's note and discussed the case with the resident. This specific service willnot be billed documented in this encounter Plan of Treatment Not on file documented as of this encounter Visit Diagnoses Not on filedocumented in this encounter Care Teams Cognos Bi Administrator Relationship Specialty Start Date End Date Ivelisse Peters MD [address] [place] [address] PCP - General Obstetrics & Gynecology 06/13/24 documented as of this encounter
--- OUTSIDE RECORDS SUMMARY | 2025-03-12 07:25 | XMS_ITS | Clinical Summary ---
Author Organization [facility] tem Address [id number] [address] [place] [address] Care Team Providers Care School Librarian Name Role Phone Ivelisse Peters MD Primary Care Provider [phone] Allergies No known active allergies Medications aspirin 81 mg Take 1 tablet (81 mg total) by mouth in the morning. Active 25/iron/folate 6/dha (PRENA1 ORAL) Take by mouth. Active sertraline (ZOLOFT) 100 mg tablet Take 1 tablet (100 mg total) by mouth in the morning. Active acetaminophen (TYLENOL EXTRA STRENGTH) 500 mg tablet Take 2 tablets (1,000 mg total) by mouth every 8 (eight) hours as needed for pain. 30 tablet 06/15/2024 Active docusate sodium (COLACE) 100 mg capsule Take 1 capsule (100 mg total) by mouth in the morning and 1 capsule (100 mg total) before bedtime. 60 capsule 06/15/2024 Active ibuprofen (MOTRIN) 800 mg tablet Take 1 tablet (800 mg total) by mouth every 8 (eight) hours as needed (cramping). 30 tablet 06/15/2024 Active Active Problems Problem Noted Date Diagnosed Date Intrauterine 06/13/2024 Immunizations Immunization Administration Dates Next Due Rho (D) Immune Globulin 06/15/2024 Social History Tobacco Use Types Packs/Day Years Used Date Smoking Tobacco: Never Smokeless Tobacco: Never Tobacco Cessation:Counseling Given: Not Answered Alcohol Use Standard Drinks/Week Comments Never 0 [...] on file Sexual Orientation Not on file Last Filed Vital Signs Vital Sign Reading Time Taken Comments Blood Pressure 109/64 06/15/2024 11:25 AM EDT Pulse 99 06/15/2024 11:30 AM EDT Temperature 36.7 C (98.1 F) 06/15/2024 11:30 AM EDT Respiratory Rate 16 06/15/2024 8:00 AM EDT Oxygen Saturation 96% 06/15/2024 8:00 AM EDT Inhaled Oxygen Concentration - - Weight 107.5 kg (237 lb) 06/13/2024 11:13 AM EDT Height 152.4 cm (5') 06/14/2024 12:03 PM EDT Body Mass Index 46.29 06/13/2024 11:13 AM EDT Plan of Treatment Not on file Medical Devices Not on file Insurance [employer] Advance Directives * Full Code (Latest Code Status on File) Date Activated Date Inactivated Comments 06/13/2024 11:57 AM 06/15/2024 2:41 PM Care Teams School Librarian Relationship Specialty Start Date End Date Ivelisse Peters MD [address] [place] [address] PCP - General Obstetrics & Gynecology 06/13/24
--- OUTSIDE RECORDS SUMMARY | 2025-03-12 07:27 | XMS_ITS | CCD ---
Author Organization [facility] Care Team Providers Care Refuse And Recycling Worker Name Role Phone JLSCOTT ELIGIO Agrawal Primary Care Physician Fran GLORIA, IBCLC, Portillo Primary Care Provid er Georgette Adair DO Unavailable Ben Bneítez DO Unavailable PORTILLO PETERS Primary Care Physician JACKELIN, Ben R Admitting Unavailable JACKELIN, Ben R Attending Unavailable JACKELIN, Ben R Attending Unavailable JACKELIN, Ben R Admitting Unavailable JACKELIN, Ben R Attending Unavailable JACKELIN, Ben R Admitting Unavailable SKINNY MERCADO Attending Unavailable [facility] Care Unavailable JULIEN HAYES Admitting Unavailable JULIEN HAYES Attending Unavailable GUILLERMINA STAFFORD Consulting Unavailable PORTILLO PETERS [facility] Care Unavailable Fran GLORIA, IBMARCIAL, Portillo Unavailable [phone] JACKELIN, Ben R Attending Unavailable JACKELIN, Ben R Admitting Unavailable JACKELIN, Ben R Admitting Unavailable JACKELIN, Ben R Attending Unavailable Bartolo Lakhani Attending Unavailable JACKELIN, Ben R Attending Unavailable JACKELIN, Ben R Admitting Unavailable JACKELIN, Ben R Admitting Unavailable JACKELIN, Ben R Attending Unavailable JACKELIN, Ben R Attending Unavailable JACKELIN, Ben R Admitting Unavailable JACKELIN, Ben R Admitting Unavailable JACKELIN, Ben R Attending Unavailable JACKELIN, Ben R Attending Unavailable JACKELIN, Ben R Admitting Unavailable JACKELIN, Ben R Admitting Unavailable JACKELIN, Ben R Attending Unavailable PORTILLO PETERS Attending Unavailable JACKELIN, BEN Attending Unavailable JACKELIN, BEN Attending Unavailable JACKELIN, BEN Attending Unavailable JACKELIN, BEN Attending Unavailable JACKELIN, Ben R Admitting Unavailable JACKELIN, Ben R Attending Unavailable JACKELIN, Ben R Admitting Unavailable JACKELIN, Ben R Attending Unavailable JACKELIN, Ben R Admitting Unavailable JACKELIN, Ben R Attending Unavailable Allergies Allergy Classification Reported Allergen(s) Allergy Type Date of Onset Reaction(s) Facility (7 sources) No Known Medication Allergies; Translations: [No Known Medication Allergies] Propensity to adverse reactions (disorder) [facility] Repository Medications Current Medications Medication Drug Class(es) Dates Sig (Normalized) Sig (Original) busPIRone (9 sources) Start: 09-22-2021 busPIRone Oral , BID, Refills(s) 0 Start Date: 09/22/21 Status: Ordered Repeat number: 1 Start: 09-22-2021 busPIRone Oral , BID, Refills(s) 0 Start Date: 09/22/21 Status: Ordered Flonase 0.05 mg/inh nasal spray (9 sources) Start: 09-22-2021 Flonase 0.05 m g/inh nasal spray 2 spray(s), Nasal, Daily, 16 gram, Refill(s) 0, each nostril, [id number], 152, cm, 09/22/21 14:32:00 EST, Height/Length Dosing, 120.5, kg, 09/22/21 14:32:00 EST, Weight Dosing Start Date: 09/22/21 Status: Ordered Quantity: 16.0 Unit: g Repeat number: 1 Indications: Acute upper respiratory infection, unspecified; Start: 09-22-2021 Flonase 0.05 m g/inh nasal spray 2 spray(s), Nasal, Daily, 16 gram, Refill(s) 0, each nostril, [id number], 152, cm, 09/22/21 14:32:00 EST, Height/Length Dosing, 120.5, kg, 09/22/21 14:32:00 EST, Weight Dosing Start Date: 09/22/21 Status: Ordered Quantity: 16.0 Unit: g Repeat number: 1 Indication: Acute upper respiratory infection, unspecified Start: 09-22-2021 Flonase 0.05 m g/inh nasal spray 2 spray(s), Nasal, Daily, 16 gram, Refill(s) 0, each nostril, [facility] #[id number], 152, cm, 09/22/21 14:32:00 EST, Height/Length Dosing, 120.5, kg, 09/22/21 14:32:00 EST, Weight Dosing Start Date: 09/22/21 Status: Ordered letrozole 2.5 mg oral tablet (2 sources) Aromatase Inhibitor take 1 tablet by mouth three times daily letrozole (Femara) 2.5 MG chemo tablet Take 2.5 mg by mouth 3 (three) times a day. Take with or without food. Active metFORMIN hydrochloride 1000 mg oral tablet (18 sources) Biguanide Start: 01-27-20 End: 01-27-20 take 1 tablet by mouth in the morning metFORMIN (Glucophage) 1000 MG tablet Indications: Hyperinsulinism , Morbid (severe) obesity due to excess calories (CMS/HCC) , Prediabetes , Insulin resistance , Infertility, female Take 1 tablet (1,000 mg) by mouth in the morning and 1 tablet (1,000 mg) in the evening. Take with meals. 180 tablet 3 01/26/2025 01/26/2026 Active Start: 01-08-2025 End: 01-26-2025 take 1 tablet by mouth every twenty-four hours at mealtime metFORMIN XR (Glucophage-XR) 500 MG 24 hr tablet Indications: Insulin resistance , Infertility, female Take 1 tablet (500 mg) by mouth in the evening. Take with meals Do not crush, chew, or split. 30 tablet 11 01/08/2025 01/26/2025 Discontinued Start: 03-22-2024 End: 08-01-2024 take 1 tablet by mouth at mealtime metFORMIN (Glucophage) 1000 MG tablet Indications: Hyperinsulinism TAKE 1 TABLET (1,000 MG) BY MOUTH IN THE MORNING AND IN THE EVENING WITH MEALS 180 tablet 03/22/2024 08/01/2024 Discontinued Start: 11-11-2023 End: 12-11-2023 take 2 tablets [...] tablet 3 03/01/2023 11/04/2023 Discontinued (Therapy completed) Vit-Fe Fumarate-FA ( One Daily) 27-0.8 MG tablet (12 sources) Vit-Fe Fumarate-FA ( One Daily) 27-0.8 MG tablet Take by mouth Active Progesterone 200 MG suppository (7 sources) Start: End: 4 Progesterone 200 MG suppository Indications: Short cervix Insert 200 mg into the vagina at bedtime Insert suppository vaginally every night at bedtime until 12 weeks gestation 30 suppository 1 04/17/2024 06/16/2024 Active sertraline 100 mg oral tablet (20 sources) Serotonin Reuptake Inhibitor Start: 9 take 1 tablet by mouth once daily Zoloft 100 mg Tab 100 mg = 1 tab(s), Oral, Daily, Refills(s) 0 Start Date: 09/24/19 Status: Ordered Repeat number: 1 Sprintec (9 sources) Start: 9 take 1 tablet by mouth once daily Sprintec 1 tab(s), Oral, Daily, Refill(s) 0 Start Date: 09/24/19 Status: Ordered Repeat number: 1 Start: 09-24-2019 take 1 tablet by virginie th once daily Sprintec 1 tab(s), Oral, Daily, Refill(s) 0 Start Date: 09/24/19 Status: Ordered Zofran ODT 4 mg Tab-Dis (9 sources) Start: 05-02-2020 take 1 tablet by mouth three times daily Zofran ODT 4 mg Tab-Dis 4 mg = 1 tab(s), Oral, TID, # 15 tab(s), Refills(s) 0 Start Date: 05/02/20 Status: Ordered Quantity: 15.0 Unit: tab(s) Repeat number: 1 Start: 05-02-2020 take 1 tablet by virginie th three times daily Zofran ODT 4 mg Tab-Dis 4 mg = 1 tab(s), Oral, TID, # 15 tab(s), Refills(s) 0 Start Date: 05/02/20 Status: Ordered Completed/Discontinued Medications Medication Drug Class(es) Dates Sig (Normalized) Sig (Original) azithromycin 250 mg oral tablet (2 sources) Macrolide Antimicrobial Start: 10-27-2024 End: 01-26-2025 azithromycin (Zithromax Z-Jaziel) 250 MG tablet Indications: Other chronic sinusitis As directed 6 tablet 10/27/2024 01/26/2025 Discontinued (Therapy completed) Blood Glucose Monitoring Suppl (FreeStyle [place] Lite) w/Device kit (10 sources) Start: 06-08-2024 End: 08-01-2024 Blood Glucose Monitoring Suppl (FreeStyle [place] Lite) w/Device kit Indications: Gestational diabetes mellitus (GDM), antepartum, gestational diabetes method of control unspecified , Elevated glucose tolerance test 1 Device in the morning and 1 Device at noon and 1 Device in the evening and 1 Device before bedtime. Use to check FSBS in the morning (fasting) nd 1 hour after each meal for a total of 4 times daily.. 1 kit 06/08/2024 08/01/2024 Discontinued Start: 06-08-2024 End: 09-16-20[address] (FreeStyle [place] Lite) w/Device kit Indications: Gestational diabetes mellitus (GDM), antepartum, gestational diabetes method of control unspecified , Elevated glucose tolerance test 1 Device in the morning and 1 Device at noon and 1 Device in the evening and 1 Device before bedtime. Use to check FSBS in the morning (fasting) nd 1 hour after each meal for a total of 4 times daily.. 1 kit 06/08/2024 09/16/2024 Active hydrOXYzine pamoate 25 mg oral capsule (2 sources) Antihistamine Start: 12-28-2023 End: 06-08-2024 hydrOXYzine pamoate (Vistaril) 25 MG capsule PLEASE SEE ATTACHED FOR DETAILED DIRECTIONS 12/28/2023 06/08/2024 Discontinued (Therapy completed) isopropyl alcohol 0.7 ml/ml medicated pad (10 sources) Start: 06-08-2024 End: 08-01-2024 Alcohol Swabs (Alcohol Prep Pad) 70 % pads Indications: Gestational diabetes mellitus (GDM), antepartum, gestational diabetes method of control unspecified , Elevated glucose tolerance test Apply 1 Pad topically Daily Use four times daily to check FSBS. 150 each 3 06/08/2024 08/01/2024 Discontinued medroxyPROGESTERone acetate 10 mg oral tablet (2 sources) Progestin Start: 11-25-2022 End: 11-02-2023 medroxyPROGESTERone (Provera) 10 MG tablet 1 (one) time each day at the same time 0 11/25/2022 11/02/2023 Discontinued (Therapy completed) Semaglutide,0.25 or 0.5MG/DOS, (Ozempic, 0.25 or 0.5 MG/DOSE,) 2 MG/3ML solution pen-injector (2 sources) Start: 07-07-2023 End: 11-02-2023 Semaglutide,0.25 or 0.5MG/DOS, (Ozempic, 0.25 or 0.5 MG/DOSE,) 2 MG/3ML solution pen-injector Indications: Insulin resistance INJECT 0.5 MG UNDER THE SKIN 1 (ONE) TIME PER WEEK. 3 mL 3 07/07/2023 11/02/2023 Discontinued (Therapy completed) Tirzepatide (Mounjaro) 2.5 MG/0.5ML solution pen-injector (2 sources) Start: 12-01-2022 End: 11-02-2023 inject 2.5 mg by subcutaneous injection every week Tirzepatide (Mounjaro) 2.5 MG/0.5ML solution pen-injector as directed Subcutaneous 2.5 mg weekly 0 12/01/2022 11/02/2023 Discontinued (Therapy completed) Problems Active Problems Problem Classification Problem Date Documented Date Episodic/Chronic Anxiety disorders (20 sources) Anxiety; Translations: [Anxiety disorder, unspecified] Onset: 11-02-2023 11-02-2023 Chronic Diabetes mellitus without complication (20 sources) Prediabetes; Translations: [Prediabetes] Onset: 11-02-2023 11-02-2023 Episodic Diabetes or abnormal glucose tolerance complicating ; childbirth; or the puerperium (2 sources) Gestational diabetes mellitus; Translations: [Gestational diabetes mellitus in , unspecified control] 06-08-2024 Episodic Female infertility (20 sources) Female infertility; Translations: [Female infertility, unspecified] Onset: 11-04-2023 11-02-2023 Chronic Hemorrhage during ; abruptio placenta; placenta previa (3 sources) Threatened miscarriage; Translations: [Threatened ] Onset: 06-12-2024 Episodic Immunizations and screening for infectious disease (2 sources) Exposure to sexually transmissible disorder; Translations: [Contact with and (suspected) exposure to infections with a predominantly sexual mode of transmission] 06-08-2024 Episodic Menstrual disorders (20 sources) Irregular periods; Translations: [Irregular menstruation, unspecified] Onset: 11-02-2023 11-02-2023 Chronic Other complications of (2 sources) Cervical incompetence; Translations: [Maternal care for cervical incompetence, unspecified trimester] 01-30-2025 Episodic Other endocrine disorders (20 sources) Hyperinsulinism; Translations: [Other hypoglycemia] Onset: 11-02-2023 11-02-2023 Chronic Other female genital disorders (2 sources) History of gynecological disorder; Translations: [Personal history of other diseases of the female genital tract] 08-01-2024 Episodic Other female genital disorders (2 sources) Finding of measures of cervix; Translations: [Incompetence of cervix uteri] 06-13-2024 Episodic Other nutritional; endocrine; and metabolic disorders (20 sources) Obesity caused by energy imbalance; Translations: [Morbid (severe) obesity due to excess calories] Onset: 11-02-2023 11-02-2023 Chronic Other nutritional; endocrine; and metabolic disorders (20 sources) Body mass index 40+ - severely obese; Translations: [Body mass index (BMI) 40.0-44.9, adult] Onset: 11-02-2023 11-02-2023 Chronic Other nutritional; endocrine; and metabolic disorders (20 sources) Insulin resistance; Translations: [Insulin resistance] Onset: 11-02-2023 11-04-2023 Chronic Other and delivery including normal (5 sources) Encounter for supervision of normal , unspecified, unspecified trimester; Translations: [Second trimester ] Onset: 06-13-2024 06-08-2024 Episodic Other screening for suspected conditions (not mental disorders or infectious disease) (8 sources) Patient encounter status; Translations: [Encounter for screening, unspecified] 11-04-2023 Episodic Other upper respiratory infections (10 sources) Acute upper respiratory infection; Translations: [Acute upper respiratory infection, unspecified] Episodic Spontaneous (2 sources) Miscarriage; Translations: [Complete or unspecified spontaneous without complication] 08-01-2024 Episodic Unclassified (1 source) hourglass membranes Onset: 06-13-2024 Unclassified (12 sources) OB Reminders Onset: 04-13-2024 04-13-2024 Past or Other Problems Problem Classification Problem Date Documented Da te Episodic/Chronic Viral infection (1 source) Disease caused by 2019-nCoV; Translations: [COVID-19] Results Test Name Value Interpretation Reference Range Facility CHEMISTRYOrdered By: SYSTEM SYSTEM on 02-24-2025 Progesterone Lvl 15.36 ng/mL Invalid Interpretation Code [facility] Comment on above: Result Comment: 'F N ON FOLLICULAR = 0.10 - 0.60' 'LUTEAL = 3.00 - 17.5' 'MIDLUTEAL = 3.30 - 18.6' 'POST-MENOPAUSE = 0.10 - 0.40' '-FIRST TRIMESTER = 8.30 - 66.5' 'SECOND TRIMESTER = 18.9 - 66.1' 'THIRD TRIMESTER = 35.8 - 312.4' 'MALES = 0.14 - 2.06' Progesteroneon 02-24-2025 Progesterone Lvl 15.36 ng/mL Invalid Interpretation Code [facility] Comment on above: Result Comment: 'F N ON FOLLICULAR = 0.10 - 0.60' 'LUTEAL = 3.00 - 17.5' 'MIDLUTEAL = 3.30 - 18.6' 'POST-MENOPAUSE = 0.10 - 0.40' '-FIRST TRIMESTER = 8.30 - 66.5' 'SECOND TRIMESTER = 18.9 - 66.1' 'THIRD TRIMESTER = 35.8 - 312.4' 'MALES = 0.14 - 2.06' Performed By: #### 2 [id number] #### [facility] [address] [place] [address] CHEMISTRYOrdered By: SYSTEM SYSTEM on 01-26-2025 Progesterone Lvl 12.81 ng/mL Invalid Interpretation Code [facility] Comment on above: Result Comment: 'F N ON FOLLICULAR = 0.10 - 0.60' 'LUTEAL = 3.00 - 17.5' 'MIDLUTEAL = 3.30 - 18.6' 'POST-MENOPAUSE = 0.10 - 0.40' '-FIRST TRIMESTER = 8.30 - 66.5' 'SECOND TRIMESTER = 18.9 - 66.1' 'THIRD TRIMESTER = 35.8 - 312.4' 'MALES = 0.14 - 2.06' Progesteroneon 01-26-2025 Progesterone Lvl 12.81 ng/mL Invalid Interpretation Code [facility] Comment on above: Result Comment: 'F N ON FOLLICULAR = 0.10 - 0.60' 'LUTEAL = 3.00 - 17.5' 'MIDLUTEAL = 3.30 - 18.6' 'POST-MENOPAUSE = 0.10 - 0.40' '-FIRST TRIMESTER = 8.30 - 66.5' 'SECOND TRIMESTER = 18.9 - 66.1' 'THIRD TRIMESTER = 35.8 - 312.4' 'MALES = 0.14 - 2.06' Performed By: #### 2 [id number] #### [facility] [address] [place] [address] CHEMISTRYOrdered By: SYSTEM SYSTEM on 12-26-2024 Progesterone Lvl 8.73 ng/mL Invalid Interpretation Code [facility] Comment on above: Result Comment: 'F N ON FOLLICULAR = 0.10 - 0.60' 'LUTEAL = 3.00 - 17.5' 'MIDLUTEAL = 3.30 - 18.6' 'POST-MENOPAUSE = 0.10 - 0.40' '-FIRST TRIMESTER = 8.30 - 66.5' 'SECOND TRIMESTER = 18.9 - 66.1' 'THIRD TRIMESTER = 35.8 - 312.4' 'MALES = 0.14 - 2.06' Progesteroneon 12-26-2024 Progesterone Lvl 8.73 ng/mL Invalid Interpretation Code [facility] Comment on above: Result Comment: 'F N ON FOLLICULAR = 0.10 - 0.60' 'LUTEAL = 3.00 - 17.5' 'MIDLUTEAL = 3.30 - 18.6' 'POST-MENOPAUSE = 0.10 - 0.40' '-FIRST TRIMESTER = 8.30 - 66.5' 'SECOND TRIMESTER = 18.9 - 66.1' 'THIRD TRIMESTER = 35.8 - 312.4' 'MALES = 0.14 - 2.06' Performed By: #### 2 [id number] #### [facility] [address] [place] [address] CHEMISTRYOrdered By: SYSTEM SYSTEM on 11-25-2024 Progesterone Lvl 5.59 ng/mL Invalid Interpretation Code [facility] Comment on above: Result Comment: 'F N ON FOLLICULAR = 0.10 - 0.60' 'LUTEAL = 3.00 - 17.5' 'MIDLUTEAL = 3.30 - 18.6' 'POST-MENOPAUSE = 0.10 - 0.40' '-FIRST TRIMESTER = 8.30 - 66.5' 'SECOND TRIMESTER = 18.9 - 66.1' 'THIRD TRIMESTER = 35.8 - 312.4' 'MALES = 0.14 - 2.06' Progesteroneon 11-25-2024 Progesterone Lvl 5.59 ng/mL Invalid Interpretation Code [facility] Comment on above: Result Comment: 'F N ON FOLLICULAR = 0.10 - 0.60' 'LUTEAL = 3.00 - 17.5' 'MIDLUTEAL = 3.30 - 18.6' 'POST-MENOPAUSE = 0.10 - 0.40' '-FIRST TRIMESTER = 8.30 - 66.5' 'SECOND TRIMESTER = 18.9 - 66.1' 'THIRD TRIMESTER = 35.8 - 312.4' 'MALES = 0.14 - 2.06' Performed By: #### 2 [id number] #### [facility] [address] [place] [address] CHEMISTRYOrdered By: SYSTEM SYSTEM on 10-23-2024 Progesterone Lvl 1.53 ng/mL Invalid Interpretation Code [facility] Comment on above: Result Comment: 'F N ON FOLLICULAR = 0.10 - 0.60' 'LUTEAL = 3.00 - 17.5' 'MIDLUTEAL = 3.30 - 18.6' 'POST-MENOPAUSE = 0.10 - 0.40' '-FIRST TRIMESTER = 8.30 - 66.5' 'SECOND TRIMESTER = 18.9 - 66.1' 'THIRD TRIMESTER = 35.8 - 312.4' 'MALES = 0.14 - 2.06' Progesteroneon 10-23-2024 Progesterone Lvl 1.53 ng/mL Invalid Interpretation Code [facility] Comment on above: Result Comment: 'F N ON FOLLICULAR = 0.10 - 0.60' 'LUTEAL = 3.00 - 17.5' 'MIDLUTEAL = 3.30 - 18.6' 'POST-MENOPAUSE = 0.10 - 0.40' '-FIRST TRIMESTER = 8.30 - 66.5' 'SECOND TRIMESTER = 18.9 - 66.1' 'THIRD TRIMESTER = 35.8 - 312.4' 'MALES = 0.14 - 2.06' Performed By: #### 2 [id number] #### [facility] [address] [place] [address] ED Note-Physicianon 06-16-20 ED Note-Physician ED Note-Physician Basic Information Time Seen: Bartolo Lakhani DO 06/12/2024 07:37 Chief Complaint States had vaginal bleeding after using the bathroom. No clots. States feels like something could come out of vagina. 17 weeks . Denies further bleeding or any pelvic pain. Hx of shortnened cervix. History of Present Illness Pt is a 34yo female presenting with 30min hx of vaginal bleeding. Pt is 17 weeks . She states when she woke up this morning and used the bathroom. When she wiped and saw blood the size of her four fingers. She states the blood was not in clot form but it was more blood than just tinged toilet paper. Pt states she felt as if she was going to have a BM. Pt states she is not having pain but feels pressure in her pelvis area. She states she feels like something is coming out. Pt states this is her first and has been seeing her OBGYN regularly. She has not experienced bleeding at all during her . Pt denies cramping, n/v, fever, PIERRE, dizziness, and dyspnea. She denies chills and changes in bathroom habits. Pt has a hx of a shortened cervix. Review of Systems A 10 point review of systems is negative except as noted above. Medical and Surgical History: Reviewed and noted Social history: Lives at home Tobacco: Denies Physical Exam Vitals & Measurements T: 36.9 ?C(Oral) HR: 97(Peripheral) RR: 20 BP: 131/77 SpO2: 99% HT: 152.4 cm WT: 111.8 kg BMI: 48.14 General: alert, no acute distress Skin: warm, dry Head: no trauma, normocephalic Neck: Trachea midline Eye: normal conjunctiva ENMT: TM's clear, oral mucosa moist Cardiovascular: regular rate and rhythm Respiratory: Lungs CTA, respirations non labored Chest wall: no deformity. Gastrointestinal: soft, non distended, no tenderness, no guarding, fundal height felt two finger breaths below umbilicus Back: No tenderness, Normal ROM Extremities: no deformity, no trauma Neurological: LOC appropriate for age, speech normal Psychiatric: cooperative, affect appropriate for age Medical Decision Making Patient seen and evaluated with physician occupational therapist assistants student. I had a [id number] interaction with the patient. I personally performed the physical exam and medical decision making. I have verified the documentation by the student is accurately representing the information obtained. Patient presents for evaluation of vaginal bleeding. Currently 17 weeks . Does follow [employer]. Today she had a small amount of vaginal spotting after urination. Does have some pelvic pressure with this. No further episodes of bleeding. No passage of clots or tissues. On examination she is resting comfortably. Abdomen soft and nontender. Ultrasound was obtained and discussed with financial services technician. The patient does have dilation of the cervical os. Case discussed with [employer]. At 17 weeks gestation there is no further treatment this time but will follow-up in the office this week. Patient educated pelvic rest. She has documented Rh- status and is treated with RhoGAM today. Patient was encouraged to return to the ED if symptoms worsen or change. Assessment/Plan Threatened miscarriage (O20.0: Threatened ) Orders: RHo (D) immune globulin, 300 mcg = 2 mL, Injection, IntraMuscular, Once, Stop date 06/12/24 9:21:00 EDT, STAT, Start date 06/12/24 9:21:00 EDT, 06/12/24 9:21:00 EDT UA with Cult Rflx Disposition Plan Patient Discharge Condition Disposition: Discharged home Condition: Improved and stable Counseled: Patient and/or family were counseled to workup, results, treatment plan and follow-up recommendations Discharge Prescription List Prescriptions No active prescription medications Follow-up With When Contact Information Ben JACKELIN In 3 days 06/15/[address] [place] [address]- Business (1) Additional Instructions: Patient Education Activity Restriction During Threatened Miscarriage Attestation I performed a substantive part of the MDM during the patient?s E/M visit. I personally made or approved the documented management plan and acknowledge its risk of complications. (Independent Interpretation) My (EKG/X-Ray/US/CT) interpretation as above. (Discussion) Management/test interpretation discussed with APC. This report was transcribed using voice recognition software. Every effort was made to ensure accuracy, however, inadvertently computerized gold miner mistakes may be present. Appropriate healthcare PPE was used in evaluating this patient. Problem List/Past Medical History Ongoing Upper respiratory infection Historical No qualifying data Procedure/Surgical History Cholecystectomy, Tonsillectomy and adenoidectomy, [place] tooth. Medications Inpatient No active inpatient medications Home busPIRone, Oral, BID Flonase 0.05 mg/inh nasal spray, 2 spray(s), Nasal, Daily Sprintec, 1 tab(s), Oral, Daily, Not taking Zofran ODT 4 mg Tab (more content not included)... Normal [facility] Comment on above: Result Comment: Elec tronically Signed By: Jose Armando Barron PA-C\.br\Date and Time Signed: 06/12/24 13:02 EDT\.br\Electronically Co-Signed By: Bartolo Lakhani DO\.br\Date and Time Co-Signed: 06/16/24 07:14 EDT CBC AND AUTO DIFFon 06-15-20 ABSOLUTE BASOPHIL 0.0 X10E9/L Normal 0.0-0.2 [facility] Comment on above: Performed By: #### C BCA, 57139-3, PINR, [id number] #### [facility] ([id number]) [address], [address] [place] [address] ABSOLUTE NEUTROPHIL 12.7 X10E9/L High 1.5-6.6 [facility] Comment on above: Performed By: #### C BCA, 71765-9, PINR, [id number] #### [facility] ([id number]) [address], [address] [place] [address] Basophils/100 WBC (Bld) 0.1 % Normal [facility] Comment on above: Performed By: #### Greg SERVIN, [id number], PINR, [id number] #### [facility] ([id number]) [address], [address] [place] [address] Eosinophils (Bld) [#/Vol] 0.1 10*3/uL Normal 0.0-0.4 [facility] Comment on above: Performed By: #### Greg SERVIN, 05661-4, PINR, [id number] #### [facility] ([id number]) [address], [address] [place] [address] Eosinophils/100 WBC (Bld) 0.5 % Normal [facility] Comment on above: Performed By: #### Greg SERVIN, 60062-1, PINR, [id number] #### [facility] ([id number]) [address], [address] [place] [address] Erythrocyte distribution width (RBC) [Ratio] 14.0 % Normal 11.5-15.0 [facility] Comment on above: Performed By: #### Greg SERVIN, 48243-1, PINR, [id number] #### [facility] ([id number]) [address], [address] [place] [address] Hematocrit (Bld) [Volume fraction] 28.9 % Low 35-47 [facility] Comment on above: Performed By: #### Greg BCA, 60759-4, PINR, [id number] #### [facility] ([id number]) [address], [address] [place] [address] Hemoglobin (Bld) [Mass/Vol] 10.0 g/dL Low 11.7-15.5 [facility] Comment on above: Performed By: #### C MALATHI, 14825-1, PINR, 51907-1 #### [facility] ([id number]) [address], [address] [place] [address] Lymphocytes (Bld) [#/Vol] 1.6 10*3/uL Normal 1.0-3.5 [facility] Comment on above: Performed By: #### C BCA, 61384-0, PINR, 36867-1 #### [facility] ([id number]) [address] [address] Lymphocytes/100 WBC (Bld) 10.5 % Normal [facility] Comment on above: Performed By: #### Greg SERVIN, 39207-2, PINR, 90158-9 #### [facility] ([id number]) [address], [facility] [address] [place] [address] MCH (RBC) [Entitic mass] 28.5 pg Normal 27-34 [facility] Comment on above: Performed By: #### Greg SERVIN, 39932-8, PINR, 91632-4 #### [facility] ([id number]) [address] [address] [place] [address] MCHC (RBC) [Mass/Vol] 34.5 g/dL Normal 32-36 [facility] Comment on above: Performed By: #### Greg BCA, 47253-5, PINR, 84235-2 #### [facility] ([id number]) [address] [address] [place] [address] MCV (RBC) [Entitic vol] 83 fL Normal 80-100 [facility] Comment on above: Performed By: #### Greg SERVIN, 28065-7, PINR, 76498-8 #### [facility] ([id number]) [address] [place] [address] Monocytes (Bld) [#/Vol] 0.8 10*3/uL Normal 0-0.9 [facility] Comment on above: Performed By: #### Greg SERVIN, 47827-7, PINR, 68311-0 #### [facility] ([id number]) [address], [facility] [address] [place] [address] Monocytes/100 WBC (Bld) 5.2 % Normal [facility] Comment on above: Performed By: #### Greg SERVIN, 29873-6, PINR, 10427-8 #### [facility] ([id number]) [address], [facility] [address] [place] [address] Neutrophils/100 WBC (Bld) 83.7 % Normal [facility] Comment on above: Performed By: #### Greg SERVIN, 37988-8, PINR, 20848-0 #### [facility] ([id number]) [address], [facility] [address] [place] [address] Platelet mean volume (Bld) [Entitic vol] 8.2 fL Normal 7-12 [facility] Comment on above: Performed By: #### Greg SERVIN, 24279-6, PINR, 62074-7 #### [facility] ([id number]) [address], [facility] [address] [place] [address] Platelets (Bld) [#/Vol] 262 10*3/uL Normal 150-450 [facility] Comment on above: Performed By: #### Greg BCA, 46498-2, PINR, 36482-5 #### [facility] ([id number]) [address], [facility] [address] [place] [address] RBC COUNT 3.50 X10E12/L Low 3.80-5.20 [facility] Comment on above: Performed By: #### Greg SERVIN, 67801-7, PINR, 15327-1 #### [facility] ([id number]) [address] [facility], [address] [place] [address] WBC (Bld) [#/Vol] 15.1 10*3/uL High 4.0-11.0 [facility] Comment on above: Performed By: #### C MALATHI, 28788-4, PINR, 23536-4 #### [facility] ([id number]) [address] [place] [address] Fibrinogen Coagulation.deriv ed (PPP) [Mass/Vol]on 06-15-2024 FIBRINOGEN 562 mg/dL High 190-480 [facility] Comment on above: Performed By: #### Greg SERVIN, 45588-0, PINR, 53259-2 #### [facility] ([id number]) [address] [place] [address] PROTIME AND INRon 06-15-2024 INR Coag (PPP) [Relative time] 1.1 {INR} Normal 0.8-1.1 [facility] Comment on above: Performed By: #### Greg LORENZO, 53077-2 #### [facility] ([id number]) [address] [place] [address] PT Coag (PPP) [Time] 13.3 s High 9.8-13.2 [facility] [place] Comment on above: Performed By: #### Greg LORENZO, 73761-7 #### [facility] ([id number]) [address] [place] [address] Surgical Pathologyon 024 Surgical Pathology Normal [facility] Comment on above: Result Comment: [facility] [address] [place] [address] Surgical Pathology Consultation Patient Name:SHARLENE SAMANO:1990 (Age: 34)Gender:FTaken:4Reported:07/04/2024hysician(s):Avel Vera M.D. ([phone])Copy To:Julien Hayes [facility]:[id number]. Rec. #:[id number]: #[id number] Final Pathologic Diagnosis Placenta; removal: 130 g fragmented third-trimester placenta with extensive parenchymal hemorrhages and irregular hemorrhagic maternal floor, suggestive of abruption in the proper clinical context. Moderate, diffuse (stage II) acute chorioamnionitis. Report Electronically Signed Out john/07/04/2024Justin Delvalle MD Interpretation performed at [facility], [address] [place] [address], License number: [id number]. Clinical History Intrauterine . Gross Description Received in formalin labeled BETCHEL, placenta is a 130 g fragmented placenta, admixed with hemorrhagic material, 14.5 x 9 x 2 cm in aggregate. The membranes are blue-garcía, smooth and glistening with a completely disrupted and indeterminate insertion site. No definitive cord insertion site or cord segment is identified. The entirety of the maternal floor displays roughened irregular cotyledons. The surface is bluegray, smooth and glistening with no definitive fibrin identified. Serial sections reveal congested areas, ranging from 1 to 3.5 cm. The remaining placental parenchyma is somewhat pale. Cassettes: A Rolled membrane B???D Padded Box Sewer sections of placenta (to include congested and pale areas) (4, ss, [id number],A-D, m5) FLORENCIA maldonado/06/30/2024SSI Specimen(s) Received Placenta Fee Codes(s): 1; 6[address] aPTT Coag (PPP) [Time]on aPTT Coag (Bld) [Time] 29 s Normal 26-37 [facility] Comment on above: Performed By: #### C , 48204-1 #### [facility] ([id number]) [address] [place] [address], [address] [place] [address] CBC AND AUTO DIFFon 06-14-20 ABSOLUTE BASOPHIL 0.0 X10E9/L Normal 0.0-0.2 [facility] Comment on above: Performed By: #### C BCA #### [facility] ([id number]) [address], [address] [place] [address] ABSOLUTE NEUTROPHIL 9.3 X10E9/L High 1.5-6.6 [facility] [place] Comment on above: Performed By: #### C BCA #### [facility] ([id number]) [address], [address] [place] [address] Basophils/100 WBC (Bld) 0.4 % Normal [facility] Comment on above: Performed By: #### C BCA #### [facility] ([id number]) [address], [address] [place] [address] Eosinophils (Bld) [#/Vol] 0.0 10*3/uL Normal 0.0-0.4 [facility] Comment on above: Performed By: #### C BCA #### [facility] ([id number]) [address], [address] [place] [address] Eosinophils/100 WBC (Bld) 0.3 % Normal [facility] Comment on above: Performed By: #### C BCA #### [facility] ([id number]) [address], [address] [place] [address] Erythrocyte distribution width (RBC) [Ratio] 13.9 % Normal 11.5-15.0 [facility] Comment on above: Performed By: #### C BCA #### [facility] ([id number]) [address], [address] [place] [address] Hematocrit (Bld) [Volume fraction] 33.8 % Low 35-47 [facility] Comment on above: Performed By: #### C BCA #### [facility] ([id number]) [address], [address] [place] [address] Hemoglobin (Bld) [Mass/Vol] 11.5 g/dL Low 11.7-15.5 [facility] Comment on above: Performed By: #### C BCA #### [facility] ([id number]) [address], [address] [place] [address] Lymphocytes (Bld) [#/Vol] 1.3 10*3/uL Normal 1.0-3.5 [facility] Comment on above: Performed By: #### C BCA #### [facility] ([id number]) [address], [address] [place] [address] Lymphocytes/100 WBC (Bld) 11.8 % Normal [facility] Comment on above: Performed By: #### C BCA #### [facility] ([id number]) [address], [address] [place] [address] MCH (RBC) [Entitic mass] 28.1 pg Normal 27-34 [facility] Comment on above: Performed By: #### C BCA #### [facility] ([id number]) [address], [address] [place] [address] MCHC (RBC) [Mass/Vol] 34.1 g/dL Normal 32-36 [facility] Comment on above: Performed By: #### C BCA #### [facility] ([id number]) [address], [address] [place] [address] MCV (RBC) [Entitic vol] 82 fL Normal 80-100 [facility] Comment on above: Performed By: #### C BCA #### [facility] ([id number]) [address], [address] [place] [address] Monocytes (Bld) [#/Vol] 0.5 10*3/uL Normal 0-0.9 [facility] Comment on above: Performed By: #### C BCA #### [facility] ([id number]) [address], [address] [place] [address] Monocytes/100 WBC (Bld) 4.1 % Normal [facility] Comment on above: Performed By: #### C BCA #### [facility] ([id number]) [address], [address] [address] Neutrophils/100 WBC (Bld) 83.4 % Normal [facility] Comment on above: Performed By: #### C BCA #### [facility] ([id number]) [address] [address] Platelet mean volume (Bld) [Entitic vol] 8.3 fL Normal 7-12 [facility] Comment on above: Performed By: #### C BCA #### [facility] ([id number]) [address] [address] Platelets (Bld) [#/Vol] 299 10*3/uL Normal 150-450 [facility] Comment on above: Performed By: #### C BCA #### [facility] ([id number]) [address] [address] RBC COUNT 4.10 X10E12/L Normal 3.80-5.20 [facility] Comment on above: Performed By: #### C BCA #### [facility] ([id number]) [address] [address] WBC (Bld) [#/Vol] 11.1 10*3/uL High 4.0-11.0 [facility] Comment on above: Performed By: #### C BCA #### [facility] ([id number]) [address] [address] CHLAMYDIA/GC PCR, Uon 2023 CHLAMYDIA/GC PCR, U CHLAMYDIA PCR, U Negative (qualifier value) Chlamydia trachomatis not detected by nucleic acid amplification. This does not exclude the possibility of infection because results are dependent on adequate specimen collection. GONORRHOEAE PCR, U Negative (qualifier value) Neisseria gonorrhoeae not detected by nucleic acid amplification. This does not exclude the possibility of infection because results are dependent on adequate specimen collection. Normal [facility] Comment on above: Performed By: #### C GUPCR #### [facility] ([id number]) [address], [address] [place] [address] COMPLETE BLOOD COUNTon 06-13 Erythrocyte distribution width (RBC) [Ratio] 14.1 % Normal 11.5-15.0 [facility] Comment on above: Performed By: #### Greg LORENZO, 72850-1 #### [facility] ([id number]) [address], [facility] [address] [place] [address] Hematocrit (Bld) [Volume fraction] 36.1 % Normal 35-47 [facility] Comment on above: Performed By: #### Greg LORENZO, 35812-3 #### [facility] ([id number]) [address], [facility] [address] [place] [address] Hemoglobin (Bld) [Mass/Vol] 12.4 g/dL Normal 11.7-15.5 [facility] Comment on above: Performed By: #### Greg LORENZO, 75326-1 #### [facility] ([id number]) [address], [facility] [address] [place] [address] MCH (RBC) [Entitic mass] 28.4 pg Normal 27-34 [facility] Comment on above: Performed By: #### Greg LORENZO, 70851-8 #### [facility] ([id number]) [address], [address] [place] [address] MCHC (RBC) [Mass/Vol] 34.3 g/dL Normal 32-36 [facility] Comment on above: Performed By: #### Greg LORENZO, 11825-4 #### [facility] ([id number]) [address], [address] [place] [address] MCV (RBC) [Entitic vol] 83 fL Normal 80-100 [facility] Comment on above: Performed By: #### Greg LORENZO, 13967-8 #### [facility] ([id number]) [address], [address] [place] [address] Platelet mean volume (Bld) [Entitic vol] 7.7 fL Normal 7-12 [facility] Comment on above: Performed By: #### Greg LORENZO, 42262-5 #### [facility] ([id number]) [address], [address] [place] [address] Platelets (Bld) [#/Vol] 316 10*3/uL Normal 150-450 [facility] Comment on above: Performed By: #### Greg LORENZO, 83748-6 #### [facility] ([id number]) [address], [address] [place] [address] RBC COUNT 4.36 X10E12/L Normal 3.80-5.20 [facility] Comment on above: Performed By: #### Greg LORENZO, 14782-7 #### [facility] ([id number]) [address], [facility] [address] [place] [address] WBC (Bld) [#/Vol] 11.2 10*3/uL High 4.0-11.0 [facility] Comment on above: Performed By: #### Greg LORENZO, 67990-7 #### [facility] ([id number]) [address], [address] [place] [address] DRUG SCREEN, URINEon 024 AMPHETAMINE/METHAMP Negative Normal NEG [facility] Comment on above: Result Comment: AMPH /METH screening cut off = 1000 ng/mL Performed By: #### D MILLS #### [facility] ([id number]) [address], [address] [place] [address] BARBITURATES Negative Normal NEG [facility] Comment on above: Result Comment: Rea iturates screening cut off value = 200 ng/mL Performed By: #### D MILLS #### [facility] ([id number]) [address], [address] [place] [address] BENZODIAZEPINES Negative Normal [facility] Comment on above: Result Comment: Gabriel odiazepines screening cut off value = 200 ng/mL Performed By: #### D MILLS #### [facility] ([id number]) [address], [address] [place] [address] CANNABINOIDS Negative Normal [facility] Comment on above: Result Comment: Jesse abinoids/THC screening cut off value = 50 ng/mL Performed By: #### D MILLS #### [facility] ([id number]) [address], [address] [place] [address] COCAINE METABOLITE Negative Normal [facility] Comment on above: Result Comment: Coca ine screening cut off value = 300 ng/mL Performed By: #### D MILLS #### [facility] ([id number]) [address], [address] [place] [address] ECSTASY Negative Normal [facility] Comment on above: Result Comment: Ecst asy screening cut off value = 500 ng/mL This report is intended for use in clinical monitoring or management of patients. Performed By: #### D MILLS #### [facility] ([id number]) [address], [address] [place] [address] METHADONE Negative Normal [facility] Comment on above: Result Comment: Meth adone screening cut off value = 300 ng/mL. Performed By: #### D MILLS #### [facility] ([id number]) [address], [address] [place] [address] OPIATES Negative Normal [facility] Comment on above: Result Comment: Opia shaji screening cut off value = 300 ng/mL NOTE: This test is used for the detection of codeine, hydrocodone (>1000 ng/mL), morphine and hydromorphone (>900 ng/mL) in urine. Performed By: #### D MILLS #### [facility] ([id number]) [address], [address] [place] [address] OXYCODONE Negative Normal NEG [facility] Comment on above: Result Comment: Oxyc odone screening cut off value = 300 ng/mL NOTE: This test is used for the detection of oxycodone and oxymorphone in urine. Performed By: #### D MILLS #### [facility] ([id number]) [address], [address] [place] [address] PHENCYCLIDINE Negative Normal NEG [facility] Comment on above: Result Comment: Phen cyclidine screening cut off value = 25 ng/mL Performed By: #### D MILLS #### [facility] ([id number]) [address], [address] [place] [address] IGP,APTIMA HPV,AGE GDLNon AGE GDLN ACOG TESTING Note . [facility] Comment on above: TESTS RESULT FLAG UN ITS REF RANGE LAB Clinician Provided Cytology Information Source.............Cervix No. of containers..01 ThinPrep Vial Age Algo ACOG Shaji... FLAG LEGEND: L-Low Normal,H-High Normal,LL-Alert Low,HH-Alert High <-Panic Low,>-Panic High,A-Abnormal,AA-Critical Abnormal Performed at: 01 =[address] [place] [address] Pooja Morillo MD, HPV APTIMA Negative Negative [facility] Comment on above: This nucleic acid am plification test detects fourteen high- risk HPV types (16,18,31,33,35,39,45,51,52,56,58,59,66,68) without differentiation. Performed at: =[address] [id number] Manager Cardiology: oPoja Morillo MD, Phone: [phone] Performed at: - [address] [id number] Manager Cardiology: Pooja Morillo MD, Phone: [phone] IGP, APTIMA HPV, RFX 16/18,45 Note . [facility] Comment on above: TESTS RESULT FLAG UN ITS REF RANGE LAB DIAGNOSIS: 02 NEGATIVE FOR INTRAEPITHELIAL LESION OR MALIGNANCY. CELLULAR CHANGES ASSOCIATED WITH INFLAMMATION ARE PRESENT. Specimen adequacy: 02 Satisfactory for evaluation. Endocervical and/or squamous metaplastic cells (endocervical component) are present. Performed by: Kayode Hernandez, Victorian Literature Professor (ASCP) . 02 Note: Note 02 The Pap smear is a screening test designed to aid in the detection of premalignant and malignant conditions of the uterine cervix. It is not a diagnostic procedure and should not be used as the sole means of detecting cervical cancer. Both false-positive and false-negative reports do occur. Test Methodology: Note 02 This liquid based ThinPrep(R) pap test was screened with the use of an image guided system. HPV Genotype Reflex Note 02 Criteria not met, HPV Genotype not performed. FLAG LEGEND: L-Low Normal,H-High Normal,LL-Alert Low,HH-Alert High <-Panic Low,>-Panic High,A-Abnormal,AA-Critical Abnormal Performed at: 02 [address] [facility] [address] [facility] [place] [address] Pooja Morillo MD, SPATULA-ALONE [facility] T. pallidum IgG+IgM IA Ql (S )on 06-13-2024 Syphilis Total <0.2 Normal 0.0-0.8 [facility] Comment on above: Result Comment: NON REACTIVE No serologic evidence of infection to Treponema pallidum (syphilis). Repeat testing may be considered in patients with suspected acute or primary syphilis in 2 to 4 weeks. Performed By: #### C , 93087-3 #### [facility] ([id number]) [address] [place] [address], [address] [address] URINALYSISon 06-13-2024 Bilirubin Ql (U) Negative Normal NEG [facility] Comment on above: Performed By: #### U A #### [facility] ([id number]) [address] [place] [address] BLOOD/HGB MODERATE Abnormal NEG [facility] Comment on above: Performed By: #### U A #### [facility] ([id number]) [address] [place] [address] Color (U) YELLOW Normal YELLOW [facility] Comment on above: Performed By: #### U A #### [facility] ([id number]) [address] [place], [place] [address], [place] [address] Glucose Ql (U) Negative Normal NEG [facility] Comment on above: Performed By: #### U A #### [facility] ([id number]) [address] [facility], [address] [place] [address] Ketones Ql (U) Negative Normal NEG [facility] Comment on above: Performed By: #### U A #### [facility] ([id number]) [address] [facility], [address] [place] [address] Leukocyte esterase Test strip Ql (U) MODERATE Abnormal NEG [facility] Comment on above: Performed By: #### U A #### [facility] ([id number]) [address] [facility], [address] [place] [address] MUCOUS PRESENT Abnormal NONE [facility] Comment on above: Performed By: #### U A #### [facility] ([id number]) [address] [place] [address], [address] [place] [address] Nitrite Ql (U) Negative Normal NEG [facility] Comment on above: Performed By: #### U A #### [facility] ([id number]) [address] [facility], [address] [place] [address] pH (U) 6.5 [pH] Normal 5.0-8.5 [facility] Comment on above: Performed By: #### U A #### [facility] ([id number]) [address] [facility], [address] [place] [address] Protein Ql (U) Negative Normal NEG [facility] Comment on above: Performed By: #### U A #### [facility] ([id number]) [address] [place] [address], [address] [place] [address] R.B.CELLS <1 Normal 0-5 [facility] Comment on above: Performed By: #### U A #### [facility] ([id number]) [address], [address] [place] [address] Specific gravity (U) [Rel density] 1.012 Normal 1.003-1.035 [facility] Comment on above: Performed By: #### U A #### [facility] ([id number]) [address], [address] [place] [address] SQUAMOUS EPITHELIUM <1 Normal 0-5 [facility] Comment on above: Performed By: #### U A #### [facility] ([id number]) [address] [address] TURBIDITY CLEAR Normal CLEAR [facility] Comment on above: Performed By: #### U A #### [facility] ([id number]) [address] [address] Urinalysis dipstick W Reflex Microscopic panel (U) URINE RECEIVED WITHOUT PRESERVATIVE-DELAYS IN TRANSPORT MAY AFFECT RESULTS.INTERPRET WITH CAUTION AND CLINICAL CORRELATION IS RECOMMENDED. Normal [facility] Comment on above: Performed By: #### U A #### [facility] ([id number]) [address] [address] Urobilinogen (U) [Mass/Vol] mg/dL Normal <1.1 [facility] Comment on above: Performed By: #### U A #### [facility] ([id number]) [address] [address] W.B.CELLS 9 /hpf High 0-5 [facility] Comment on above: Performed By: #### U A #### [facility] ([id number]) [address] [address] [place] [id number] URINE CULTUREon 06-13-2024 Bacteria identified Cx Nom (U) SPECIMEN NOTES URINE RECEIVED WITHOUT PRESERVATIVE CULTURE RESULTS <10,000 ORGANISMS/ML NORMAL URO GENITAL ABDON Normal [facility] Comment on above: Performed By: #### 6 30-4 #### [facility] ([id number]) [address] [place] [address], [address] [place] [address] VAGINITIS PANEL PCRon 2023 VAGINITIS PANEL PCR BACT. VAGINOSIS DNA Not detected (qualifier value) Qualitative results are reported based on detection and quantitation of targeted organism markers which include: Lactobacillus spp. (L. crispatus and L. jensenii), Gardnerella vaginalis, Atopobium vaginae, Bacterial Vaginosis Associated Bacteria-2 (BVAB-2) and Megasphaera-1 LEONIE SPECIES DNA Not detected (qualifier value) Leonie species not detected include: C. albicans, C. tropicalis, C. parapsilosis or C. dubliniensis LEONIE KRUSEI DNA Not detected (qualifier value) No Leonie krusei detected LEONIE GLABRATA DNA Not detected (qualifier value) No Leonie glabrata detected TRICHOMONAS VAG DNA Not detected (qualifier value) No Trichomonas vaginalis detected NOTE BD MAX Vaginal Panel has not been evaluated for patients under 18 years old. Results for these patients should be reviewed and assessed in accordance with clinical presentation to determine patient diagnosis. Normal [facility] Comment on above: Performed By: #### V PPCR #### [facility] ([id number]) [address] [place] [address], [address] [place] [address] ED Clinical Summaryon 2023 ED Clinical Summary ED Clinical Summary [place] [id number] ED Clinical Summary Person Information [facility]: [facility] Age[facility] 34 Years : 1990 Sex: Female Language: Venezuelan PCP: PORTILLO PETERS MD Marital Status: Visit Id: Visit Reason: Vaginal bleeding; VAGINAL BLEEDING /17 WEEKS PREG Speciality: Acuity: 3 Enc Type: Emergency Med Service: Emergency Arrival: 06/12/2024 07:28:38 Discharge: 06/12/2024 10:06:53 LOS: 000 02:38 Checkin: 06/12/2024 07:28:38 Checkout: 06/12/2024 10:06:53 Dispo Type: Home (Routine DC) EVENTS: Event Name Event Status Request Date/Time Start Date/Time Complete Date/Time Arrive Complete 06/12/2024 07:28:38 06/12/2024 07:28:38 06/12/2024 07:28:38 Document Home Meds Request 06/12/2024 07:28:38 Triage Complete 06/12/2024 07:28:38 06/12/2024 07:44:07 06/12/2024 07:44:07 Registration Complete 06/12/2024 07:31:46 06/12/2024 07:31:46 06/12/2024 07:31:46 Reg Complete Request 06/12/2024 07:31:46 Reg Bed Request Complete 06/12/2024 07:31:46 06/12/2024 07:31:46 06/12/2024 07:31:46 Bed Assign Complete 06/12/2024 07:35:23 06/12/2024 07:35:23 06/12/2024 07:35:23 Dr Exam Complete 06/12/2024 07:35:23 06/12/2024 07:36:11 06/12/2024 07:36:11 RN Exam Complete 06/12/2024 07:35:23 06/12/2024 07:46:20 06/12/2024 07:46:20 Registration Request 06/12/2024 07:36:11 Dr Exam Complete 06/12/2024 07:37:19 06/12/2024 07:37:19 06/12/2024 07:37:19 Dr Exam Complete 06/12/2024 07:38:00 06/12/2024 07:38:00 06/12/2024 07:38:00 US Cancel 06/12/2024 07:38:15 06/12/2024 08:06:50 US Complete 06/12/2024 08:06:49 06/12/2024 08:07:06 06/12/2024 08:32:08 Pending Labs Request 06/12/2024 08:08:27 Meds Admin Complete 06/12/2024 09:21:43 06/12/2024 10:02:37 Discharge Complete 06/12/2024 09:51:25 06/12/2024 10:06:58 06/12/2024 10:06:58 Transfer Complete 06/12/2024 10:06:58 06/12/2024 10:06:58 06/12/2024 10:06:58 ADDRESS: [address] [facility] [id number] PHYS DOC NOTES: MEDICAL INFORMATION: Prescriptions Given: Medications to Continue with No Changes Other Medications ondansetron (Zofran ODT 4 mg Tab-Dis) 1 Tablets By Mouth 3 times a day. Refills: 0. PATIENT EDUCATION INFORMATION: Instructions: Activity Restriction During ; Threatened Miscarriage Follow up: With: [facility]: [facility] [place] [address] [place] [address] [place], [place] [id number] Business (1) In 3 days 06/15/2024 DIAGNOSIS: Threatened miscarriage Normal [facility] ED Note-Nursingon 06-12-2024 ED Note-Nursing ED Note-Nursing No heart tones needed at this time as pt has already had US per ALEXANDRIA Suárez. Normal [facility] ED Patient Summaryon 024 ED Patient Summary ED Patient Summary [address] [address] Patient Discharge Instructions Person Information Name: SHARLENE SAMANO Age: 34 Years Arrival Date: 06/12/2024 07:28:38 Discharge Diagnosis: Threatened miscarriage Primary Care Physician: PORTILLO PETERS MD Provider Information Primary Provider: Bartolo Lakhani DO Advanced Clinical Informaticist:Jose Armando Barron PA-C The exam and treatment you received in the Emergency Department were for an urgent problem and are not intended as complete care. It is important that you follow up with a doctor, nurse practitioner, or physician?s occupational therapist assistants for ongoing care. If your symptoms become worse or you do not improve as expected and you are unable to reach your usual health care provider, you should return to the Emergency Department. We are available 24 hours a day. SHARLENE SAMANO has been given the following list of patient education materials, prescriptions and follow-up instructions: Follow-up Instructions: With: Address: When: Ben BENÍTEZ [facility], [address] [place] [address] [place] [address] Business (1) In 3 days 06/15/2024 In the event that this physician does not participate in your insurance network, please consult with your insurance company to find a nearby participating provider. Patient Education Materials: Activity Restriction During ; Threatened Miscarriage A MESSAGE TO ALL PATIENTS REGARDING OPIOIDS PRESCRIPTION OPIOIDS: WHAT YOU NEED TO KNOW Prescription opioids can be used to help relieve epyauwsd-ny-incoyh pain and are often prescribed following a surgery or injury, or for certain health conditions. These medications can be an important part of the treatment but also come with serious risks. It is important to work with your healthcare provider to make sure you are getting the safest, most effective care. WHAT ARE THE RISKS AND SIDE EFFECTS OF OPIOID USE? Prescription opioids carry serious risks of addiction and overdose, especially with prolonged use. An opioid overdose, often marked by slowed breathing, can cause sudden . The use of prescription opioids can have a number of side effects as well, even when taken as directed: ? Tolerance?meaning you might need to take more of the medication for the same pain relief ? Physical dependence?meaning you have symptoms of withdrawal when a medication is stopped ? Increased sensitivity to pain ? Constipation ? Nausea, vomiting, and dry mouth ? Sleepiness and dizziness ? Confusion ? Depression ? Low levels of testosterone that can result in lower sex drive, energy, and strength ? Itching and sweating RISKS ARE GREATER WITH: ? History of drug misuse, substance use disorder, or overdose ? Mental health conditions (such as depression or anxiety) ? Sleep apnea ? Older age (65 years and older) ? Avoid alcohol while taking prescription opioids. Also, unless specifically advised by your health care provider, medications to avoid include: ? Benzodiazepines (such as Xanax or Valium) ? Muscle relaxants (such as Soma or Flexeril) ? Hypnotics (such as Ambien or Lunesta) ? Other prescription opioids KNOW YOUR OPTIONS Talk to your health care provider about ways to manage your pain that don?t involve prescription opioids. Some of these options may actually work better and have fewer risks and side effects. Options may include: ? Pain relievers such as acetaminophen, ibuprofen, and naproxen ? Some medication that are also used for depression or seizures ? Physical therapy and exercise ? Cognitive behavioral therapy, a psychological, goal-directed approach, in which patients learn how to modify physical, behavioral, and emotional triggers of pain and stress. IF YOU ARE PRESCRIBED OPIOIDS FOR PAIN: ? Never take opioids in greater amounts or more often than prescribed. ? Follow up with your primary health care provider. o Work together to create a plan on how to manage your pain. o Talk about ways to help manage your pain that don?t involve prescription opioids. o Talk about any and all concerns and side effects. ? Help prevent misuse and abuse o Never sell or share prescription opioids. o Never use another person?s prescription opioids. ? Store prescription opioids in a secure place and out of reach of others (this may include visitors, children, friends, and family). ? Safely dispose of unused prescription opioids: Find your community drug take-back program or your pharmacy mail-back program, or flush them down the toilet, following guidance from the Food and Drug Administration (www.fda.gov/Drugs/Re sourcesForYou). ? Visit www.cdc.gov/drugoverd ose to learn about the risks of opioids abuse and overdose. ? If you believe you may be struggling with addiction, tell your health care profession (more content not included)... Normal [facility] Limitedon 06-12 Limited Exam Date/Time: 06/12/2024 08:32 EDT Reason for Exam: Vaginal bleeding Report IMPRESSION: SINGLE LIVE INTRAUTERINE CORRESPONDING TO APPROXIMATELY Composite Ultrasound Age: 17 weeks, 0 days. OPEN SHORTENED CERVIX WITH PROBABLE PROTRUDING MEMBRANES INTO THE SUPERIOR VAGINA, NOTED. NO OTHER GROSS ABNORMALITY IDENTIFIED, WITHIN THE LIMITS OF THE STUDY. EXAM: US Limited DATE: 06/12/2024 8:07 AM CLINICAL HISTORY: Vaginal bleeding. Gestational Age by LMP: 17 weeks, 4 days COMPARISON: None available. Transabdominal ultrasound of the gravid uterus was performed. FINDINGS: The study is mild to moderately limited by the patient's body habitus. A single live intrauterine is noted in breech position. cardiac activity is measured at 150 bpm. The cervix appears shortened to approximately 2 cm with dilatation of the endocervical canal to approximately 1.2 cm. Probable membrane protrusion into the superior vagina. PLACENTA: A grade 1-appearing placenta is anterior/fundal without evidence of placenta previa. The amniotic fluid volume appears within normal limits for gestation. There is no free pelvic fluid or other findings of concern identified, within limits of the study. MEASUREMENTS: The following measurements were obtained: * Biparietal Diameter: 3.6 cm with the Growth Percentile Rank: 23.0 Percent * Head Circumference: 13.8 cm with the Growth Percentile Rank: 22.0 Percent Report * Abdominal Circumference: 10.8 cm with the Growth Percentile Rank: 21.0 Percent * Femur Length: 2.3 cm with the Growth Percentile Rank: 22.0 Percent * which corresponds to Composite Ultrasound Age: 17 weeks, 0 days. ESTIMATED WEIGHT: Estimated Weight: 172 (grams) Estimated Weight: 0lbs 6.1ozs (lbs/oz) EFW growth percentile rank: 10 (Percent) EFW LMP Percentile: 10.8 (Percent) An anatomic survey was not performed. Ordering Provider: Bartolo Lakhani FINAL REPORT Dictated: 06/12/2024 11:56 am Marcin Armas MD Signed (Electronic Signature): 06/12/2024 11:56 am Signed by: Marcin Armas MD Transcribed by: RONNIE Technologist: MARCO Technical Comments RONY 11/16/24 History 1 Para 0 Transabdominal Ultrasound Performed FHR (bpm) 150 Placenta Grade 0 Positioning Breech Normal [facility] URETHRITIS/DISCHARGE PLUS VA GINITIS (HTRX)on 06-09-2024 ATOPOBIUM VAGINAE 0.000 [facility] Healthcare ATOPOBIUM VAGINAE Not detected [facility] BVAB 2,3 (BACTERIAL VAGINOSIS ASSOCIATED BACTERIA 2, 3); MOBILUNCUS SPP 0.000 [facility] BVAB 2,3 (BACTERIAL VAGINOSIS ASSOCIATED BACTERIA 2, 3); MOBILUNCUS SPP Not detected [facility] Healthcare LEONIE ALBICANS, PARAPSILOSIS, TROPICALIS 0.000 [facility] LEONIE ALBICANS, PARAPSILOSIS, TROPICALIS Not detected [facility] LEONIE GLABRATA 0.000 [facility] LEONIE GLABRATA Not detected [facility] LEONIE KRUSEI 0.000 [facility] LEONIE KRUSEI Not detected [facility] CHLAMYDIA TRACHOMATIS 0.000 [facility] CHLAMYDIA TRACHOMATIS Not detected [facility] GARDNERELLA VAGINALIS 0.000 [facility] GARDNERELLA VAGINALIS Not detected [facility] MEGASPHAERA (TYPES 1, 2) 0.000 [facility] MEGASPHAERA (TYPES 1, 2) Not detected [facility] MYCOPLASMA GENITALIUM 0.000 [facility] MYCOPLASMA GENITALIUM Not detected [facility] NEISSERIA GONORRHOEAE 0.000 [facility] NEISSERIA GONORRHOEAE Not detected [facility] TRICHOMONAS VAGINALIS 0.000 [facility] TRICHOMONAS VAGINALIS Not detected N [facility] Urinalysis macro (dipstick) panel (U)on 06-08-2024 Bilirubin, UA Negative Negative - 4(70) +++ mg/dL [facility] Blood, UA Negative Negative - 50 Santos/mcL [facility] Clarity, UA Clear [facility] Color, UA Yellow [facility] Glucose, UA Negative Negative - 2000(110) ++++ mg/dL [facility] Interpretation and review of laboratory results Normal [facility] Ketones, UA Negative Negative - 160(16) ++++ mg/dL [facility] Leukocytes, UA Negative Negative - 500+++ Anna/mcL [facility] Nitrite, UA Negative Negative - Positive [facility] pH, UA 6.0 5 - 9 [facility] Protein, UA Negative Negative - 2000(20) ++++ mg/dL [facility] Spec Grav, UA 1.020 1 - 1.03 [facility] Urobilinogen, UA 0.2 0.2 - 12 mg/dL [facility] CHEMISTRYOrdered By: SYSTEM SYSTEM on 06-03-2024 Glucose [Mass/Vol] 207 mg/dL High 55 - 140 mg/dL Remisol Chem Gest Scr Glu 1 Hron 06-03-20 Glucose [Mass/Vol] 207 mg/dL High 55-140 [facility] Comment on above: Performed By: #### 3 [id number] #### [facility] [address] [place] [address] C Urineon 05-01-2024 Bacteria identified Cx [facility] (U) Microbiology PROCEDURE: Urine Culture [R1] SOURCE: U CleanCatch BODY SITE: COLLECTED DATE/TIME: 04/29/2024 09:54 EDT RECEIVED DATE/TIME: 04/29/2024 14:05 EDT START DATE/TIME: 04/29/2024 14:05 EDT FREE TEXT SOURCE: Ben BENÍTEZ DO, DO, Corey R FINAL REPORTS Final Report [] Verified Date/Time: 05/01/2024 10:38 EDT 2,000 cfu/ml Mixed skin contaminants Performing Locations R1: This test was performed at: [facility], [address] [place] [address], [address]- , [place], Normal [facility] Comment on above: Performed By: #### 2 [id number] #### [facility] [address] [place] [address] .Interpretation:on HCV Ab IA Ql Comment Invalid Interpretation Code [facility] Comment on above: Result Comment: Not infected with HCV unless early or acute infection is suspected (which may be delayed in an immunocompromised individual), or other evidence exists to indicate HCV infection. Performed at: [facility] [address] [id number] PhD Wiliam Mendoza Performed By: #### 2 [id number] #### [facility] [address] [place] [address] HCV Antibody RFX to Quant PC Eugenio 04-30-2024 HCV IgG IA Ql Non-Reactive Invalid Interpretation Code Non Reactive [facility] Comment on above: Result Comment: Perf ormed at: [facility] [address] [id number] PhD Wiliam Mendoza Performed By: #### 2 [id number] #### [facility] [address] [place] [address] HIV Screen 4th Generation wR fxon 04-30-2024 HIV 1+2 Ab+HIV1 p24 Ag IA Ql Non-Reactive Invalid Interpretation Code Non Reactive [facility] Comment on above: Result Comment: HIV Negative HIV-1/HIV-2 antibodies and HIV-1 p24 antigen were NOT detected. There is no laboratory evidence of HIV infection. Performed at: [facility] [address] [id number] PhD Wiliam Mendoza Performed By: #### 9 [id number] #### [facility] [address] [place] [address] Hep Bs Agon 04-30-2024 HBV surface Ag IA Ql Negative Invalid Interpretation Code Negative [facility] Comment on above: Result Comment: Perf ormed at: [address] [id number] PhD Wiliam Mendoza Performed By: #### 2 [id number] #### [facility] [address] [place] [address] [id number] 04-30-2024 HbA1c (Bld) [Mass fraction] 5.3 % Normal <=5.9 [facility] Comment on above: Performed By: #### 7 [id number] #### [facility] [address] [place] [address] RPR with Conf Rfxon 04-30-20 24 Reagin Ab RPR Ql (S) Non-Reactive Invalid Interpretation Code Non Reactive [facility] Comment on above: Result Comment: Perf ormed at: [address] [id number] PhD Wiliam Mendoza Performed By: #### 1 [id number] #### [facility] [address] [place] [address] Rubella IgGon 04-30-2024 Rubella virus IgG Qn (S) 1.76 [IU]/mL Invalid Interpretation Code Immune >0.99 [facility] Comment on above: Result Comment: Non- immune <0.90 Equivocal 0.90 - 0.99 Immune >0.99 Performed at: [address] [id number] PhD Wiliam Mendoza Performed By: #### 1 [id number] #### [facility] [address] [place] [address] ABO/Rhon 04-29-2024 ABO/Rh AB NEG Invalid Interpretation Code [facility] Comment on above: Performed By: #### 2 [id number] #### [facility] [address] [place] [address] ABSCon 04-29-2024 ABSC Gel Interp Negative Normal [facility] Comment on above: Performed By: #### 1 [id number] #### [facility] [address] [place] [address] BLOOD BANKOrdered By: Rand Sol on 04-29-2024 ABO/Rh Interp AB NEG Invalid Interpretation Code [facility] BB Subsection ABSC Gel Interp Negative (04/29/24 10:03 AM) Normal [facility] BB Subsection CBC w/ Auto Diffon Basophils/100 WBC (Bld) 0.2 % Normal 0.0-2.0 [facility] Comment on above: Performed By: #### 2 [id number] #### [facility] [address] [place] [address] Basophils/Leukocytes Auto (Bld) [Pure # fraction] 0.0 E9/L Normal 0.0-0.2 [facility] Comment on above: Performed By: #### 2 [id number] #### [facility] [address] [place] [address] Eosinophils (Bld) [#/Vol] 0.1 E9/L Normal 0.0-0.5 [facility] Comment on above: Performed By: #### 2 [id number] #### [facility] [address] [place] [address] Eosinophils/100 WBC (Bld) 1.1 % Normal 0.0-8.0 [facility] Comment on above: Performed By: #### 2 [id number] #### [facility] [address] [place] [address] Erythrocyte distribution width (RBC) [Ratio] 14.2 % Normal 10.9-14.2 [facility] Comment on above: Performed By: #### 2 [id number] #### [facility] [address] [place] [address] Hematocrit (Bld) [Volume fraction] 38.3 % Normal 34.0-46.0 [facility] Comment on above: Performed By: #### 2 [id number] #### [facility] [address] [place] [address] Hemoglobin (Bld) [Mass/Vol] 13.5 g/dL Normal 12.0-16.0 [facility] Comment on above: Performed By: #### 2 [id number] #### [facility] [address] [place] [address] Lymphocytes (Bld) [#/Vol] 2.2 E9/L Normal 1.0-4.0 [facility] Comment on above: Performed By: #### 2 [id number] #### [facility] [address] [place] [address] Lymphocytes/100 WBC (Bld) 25.1 % Normal 14.0-50.0 [facility] Comment on above: Performed By: #### 2 [id number] #### [facility] [address] [place] [address] MCH (RBC) [Entitic mass] 29.3 pg Normal 27.0-34.0 [facility] Comment on above: Performed By: #### 2 [id number] #### [facility] [address] [place] [address] MCHC (RBC) [Mass/Vol] 35.2 g/dL Normal 31.4-36.0 [facility] Comment on above: Performed By: #### 2 [id number] #### [facility] [address] [place] [address] MCV (RBC) [Entitic vol] 83.3 fL Normal 80.0-100.0 [facility] Comment on above: Performed By: #### 2 [id number] #### [facility] [address] [place] [address] Monocytes (Bld) [#/Vol] 0.5 E9/L Normal 0.2-1.0 [facility] Comment on above: Performed By: #### 2 [id number] #### [facility] [address] [place] [address] Neutrophils (Bld) [#/Vol] 5.8 E9/L Normal 2.0-7.5 [facility] Comment on above: Performed By: #### 2 [id number] #### [facility] [address] [place] [address] Neutrophils/100 WBC (Bld) 67.6 % Normal 36.0-75.0 [facility] Comment on above: Performed By: #### 2 [id number] #### [facility] [address] [place] [id number] Platelet 354.0 E9/L Normal 150.0-500.0 [facility] Comment on above: Performed By: #### 2 [id number] #### [facility] [address] [place] [address] Platelet mean volume (Bld) [Entitic vol] 7.9 fL Normal 6.4-10.8 [facility] Comment on above: Performed By: #### 2 [id number] #### [facility] [address] [place] [address] RBC (Bld) [#/Vol] 4.6 E12/L Normal 4.3-5.9 [facility] Comment on above: Performed By: #### 2 [id number] #### [facility] [address] [place], [place] [address] WBC corrected for nucl RBC Auto (Bld) [#/Vol] 8.6 E9/L Normal 4.0-11.0 [facility] Comment on above: Performed By: #### 2 [id number] #### [facility] [address] [place] [address] HEMATOLOGYOrdered By: SYSTEM SYSTEM on 04-29-2024 Basophils/100 [...] (U) 3+ /HPF Abnormal Trace Fish er [facility] Comment on above: Performed By: #### 4 [id number] #### [facility] [address] [place] [address] Bilirubin Ql (U) Negative Normal Negative [facility] Comment on above: Performed By: #### 4 [id number] #### [facility] [address] [place] [address] Clarity (U) Clear Normal Clear [facility] Comment on above: Performed By: #### 4 [id number] #### [facility] [address] [place] [address] Color (U) Light-Yellow Normal Yellow [facility] Comment on above: Result Comment: Micr oscopic readings are only performed on those samples that meet specific criteria set forth by [facility]. Performed By: #### 4 [id number] #### [facility] [address] [place] [address] Epithelial cells.squamous Auto (Urine sed) [#/Area] 0-2 Invalid Interpretation Code [facility] Comment on above: Performed By: #### 4 [id number] #### [facility] [address] [place] [address] Glucose Ql (U) Negative Normal Negative [facility] Comment on above: Performed By: #### 4 [id number] #### [facility] [address] [place] [address] Hemoglobin Auto test strip (U) [Mass/Vol] Negative Normal Negative [facility] Comment on above: Performed By: #### 4 [id number] #### [facility] [address] [place] [address] Ketones Auto test strip Ql (U) Negative Normal Negative [facility] Comment on above: Performed By: #### 4 [id number] #### [facility] [address] [place] [address] Leukocyte esterase Auto test strip Ql (U) 75 Anna/uL Abnormal Negative [facility] Comment on above: Performed By: #### 4 [id number] #### [facility] [address] [place] [address] Mucus Auto Ql (U) Trace Normal Negative [facility] Comment on above: Performed By: #### 4 [id number] #### [facility] [address] [place] [address] Nitrite Auto test strip Ql (U) Negative Normal Negative [facility] Comment on above: Performed By: #### 4 [id number] #### [facility] [address] [place] [address] pH (U) 5.5 [pH] Invalid Interpretation Code 5.0-9.0 [facility] Comment on above: Performed By: #### 4 [id number] #### [facility] [address] [place] [address] Protein Ql (U) Negative Normal Negative [facility] Comment on above: Performed By: #### 4 [id number] #### [facility] [address] [place] [address] Specific gravity (U) [Rel density] 1.007 Invalid Interpretation Code 1.005-1.030 [facility] Comment on above: Performed By: #### 4 [id number] #### [facility] [address] [place], [place] [address] Urobilinogen (U) [Mass/Vol] Negative Normal Negative [facility] Comment on above: Performed By: #### 4 [id number] #### [facility] [facility] [address] [place] [address] WBC Auto (Urine sed) [#/Area] 0-5 Normal 0-5 [facility] Comment on above: Performed By: #### 4 [id number] #### [facility] [address] [place] [address] Type of Urine collection method Clean Catch Normal [facility] Comment on above: Performed By: #### 4 [id number] #### [facility] [address] [place] [address] URINALYSISOrdered By: SYSTEM SYSTEM on 04-29-2024 Bacteria [...] criteria set forth by [facility]. Epithelial cells.squamous Auto (Urine sed) [#/Area] [...] Ag Negative (09/23/21 9:13 AM) Normal Negative [facility] Rapid COV Int NEG Ctl Pass (09/23/21 9:13 AM) Normal [facility] Rapid COV Int POS Ctl Pass (09/23/21 9:13 AM) Normal [facility] SARS-CoV+SARS-CoV-2 (COVID-19) Ag IA.rapid Ql (Resp) Detected 1 *CRIT* (09/23/21 9:13 AM) Invalid Interpretation Code Not Detected [facility] Comment on above: Result Comment: Resu lts Called To Nida Morse By dc And Read Back For Confirmation On 09/23/2021 10:34:57 EST. CBC With Platelet and Differ entialon 04-02-2020 Basophils (Bld) [#/Vol] 0.0 10*3/uL Normal 0.0-0.2 [facility] Comment on above: Performed By: #### C BCWD #### [facility] [address] [place] [address] Basophils/100 WBC (Bld) 0.3 % Normal [facility] Comment on above: Performed By: #### C BCWD #### [facility] [address] [place] [address] Eosinophils (Bld) [#/Vol] 0.1 10*3/uL Normal 0.0-0.7 [facility] Comment on above: Performed By: #### C BCWD #### [facility] [address] [place] [address] Eosinophils/100 WBC (Bld) 1.1 % Normal [facility] Comment on above: Performed By: #### C BCWD #### [facility] [address] [place] [address] Erythrocyte distribution width (RBC) [Ratio] 15.4 % Critically high 11.5-14.5 [facility] Comment on above: Performed By: #### C BCWD #### [facility] [address] [place] [address] Hematocrit (Bld) [Volume fraction] 40.3 % Normal 37.0-47.0 [facility] Comment on above: Performed By: #### C BCWD #### [facility] [address] [place] [address] Hemoglobin (Bld) [Mass/Vol] 13.2 g/dL Normal 12.0-16.0 [facility] Comment on above: Performed By: #### C BCWD #### [facility] [address] [place] [address] Lymphocytes (Bld) [#/Vol] 2.3 10*3/uL Normal 1.0-4.8 [facility] Comment on above: Performed By: #### C BCWD #### [facility] [address] [place] [address] Lymphocytes/100 WBC (Bld) 25.1 % Normal [facility] Comment on above: Performed By: #### C BCWD #### [facility] [address] [place] [address] MCH (RBC) [Entitic mass] 27.4 pg Normal 27.0-31.3 [facility] Comment on above: Performed By: #### C BCWD #### [facility] [address] [place] [address] MCHC (RBC) [Mass/Vol] 32.8 % Low 33.0-37.0 [facility] Comment on above: Performed By: #### C BCWD #### [facility] [address] [place] [address] MCV (RBC) [Entitic vol] 83.7 fL Normal 82.0-100.0 [facility] Comment on above: Performed By: #### C BCWD #### [facility] [address] [place] [address] Monocytes (Bld) [#/Vol] 0.6 10*3/uL Normal 0.2-0.8 [facility] Comment on above: Performed By: #### C BCWD #### [facility] [address] [place] [address] Monocytes/100 WBC (Bld) 7.0 % Normal [facility] Comment on above: Performed By: #### C BCWD #### [facility] [address] [place] [address] Neutrophils (Bld) [#/Vol] 6.2 10*3/uL Normal 1.4-6.5 [facility] Comment on above: Performed By: #### C BCWD #### [facility] [address] [place] [address] Neutrophils/100 WBC (Bld) 66.5 % Normal [facility] Comment on above: Performed By: #### C BCWD #### [facility] [address] [place] [address] Platelets (Bld) [#/Vol] 308 10*3/uL Normal 130-400 [facility] Comment on above: Performed By: #### C BCWD #### [facility] [address] [place] [address] RBC (Bld) [#/Vol] 4.81 10*6/uL Normal 4.20-5.40 [facility] Comment on above: Performed By: #### C BCWD #### [facility] [address] [place] [address] WBC (Bld) [#/Vol] 9.3 10*3/uL Normal 4.8-10.8 [facility] Comment on above: Performed By: #### C BCWD #### [facility] [address] [place] [address] Comprehensive Metabolic Pane leidy 04-02-2020 Albumin [Mass/Vol] 3.9 g/dL Normal 3.5-4.6 [facility] Comment on above: Performed By: #### C MP #### [facility] [address] [place] [address] ALP [Catalytic activity/Vol] 75 U/L Normal 40-130 [facility] Comment on above: Performed By: #### C MP #### [facility] [address] [place] [address] ALT [Catalytic activity/Vol] 18 U/L Normal 0-33 [facility] Comment on above: Performed By: #### C MP #### [facility] [address] [place] [address] Anion gap [Moles/Vol] 11 mmol/L Normal 9-15 [facility] Comment on above: Performed By: #### C MP #### [facility] [address] [place] [address] AST [Catalytic activity/Vol] 22 U/L Normal 0-35 [facility] Comment on above: Performed By: #### C MP #### [facility] [address] [place] [address] Bilirubin [Mass/Vol] mg/dL Normal 0.2-0.7 [facility] Comment on above: Performed By: #### C MP #### [facility] [address] [place] [address] Calcium [Mass/Vol] 9.1 mg/dL Normal 8.5-9.9 [facility] Comment on above: Performed By: #### C MP #### [facility] [address] [place] [address] Chloride [Moles/Vol] 103 mmol/L Normal 95-107 [facility] Comment on above: Performed By: #### C MP #### [facility] [address] [place] [address] CO2 [Moles/Vol] 23 mmol/L Normal 20-31 [facility] Comment on above: Performed By: #### C MP #### [facility] [address] [place] [address] Creatinine [Mass/Vol] 0.66 mg/dL Normal 0.50-0.90 [facility] Comment on above: Performed By: #### C MP #### [facility] [address] [place] [address] GFR/1.73 sq M predicted among blacks MDRD (S/P/Bld) [Vol rate/Area] mL/min/{1.73_m2} Normal >60 [facility] Comment on above: Result Comment: >60 mL/min/1.73m2 EGFR, calc. for ages 18 and older using the MDRD formula (not corrected for weight), is valid for stable renal function. Performed By: #### C MP #### [facility] [address] [place] [address] GFR/1.73 sq M.predicted MDRD (S/P/Bld) [Vol rate/Area] mL/min/{1.73_m2} Normal >60 [facility] Comment on above: Result Comment: >60 mL/min/1.73m2 EGFR, calc. for ages 18 and older using the MDRD formula (not corrected for weight), is valid for stable renal function. Performed By: #### C MP #### [facility] [address] [place] [address] Globulin (S) [Mass/Vol] 3.1 g/dL Normal 2.3-3.5 [facility] Comment on above: Performed By: #### C MP #### [facility] [address] [place] [address] Glucose [Mass/Vol] 74 mg/dL Normal 70-99 [facility] Comment on above: Performed By: #### C MP #### [facility] [address] [place] [address] Potassium [Moles/Vol] 4.4 mmol/L Normal 3.4-4.9 [facility] Comment on above: Performed By: #### C MP #### [facility] [address] [place] [address] Protein [Mass/Vol] 7.0 g/dL Normal 6.3-8.0 [facility] Comment on above: Performed By: #### C MP #### [facility] [address] [place] [address] Sodium [Moles/Vol] 137 mmol/L Normal 135-144 [facility] Comment on above: Performed By: #### C MP #### [facility] [address] [place] [address] Urea nitrogen [Mass/Vol] 16 mg/dL Normal 6-20 [facility] Comment on above: Performed By: #### C MP #### [facility] [address] [place] [address] Hemoglobin A1con 04-02-2020 HbA1c (Bld) [Mass fraction] 5.8 % Normal 4.8-5.9 [facility] Comment on above: Performed By: #### A 1C #### [facility] [address] [place] [address] TSH w/Reflexon 04-02-2020 TSH Qn 3.260 uIU/mL Normal 0.440-3.86 [facility] Comment on above: Performed By: #### T SHR #### [facility] [address] [place] [address] Vital Signs Date Time Vital Sign Value Performing Clinician Facility 01-26-2025 14:54-0400 Body height 152.4 cm Portillo Peters MD, IBCLC Work Phone: [facility] 01-26-2025 14:54-0400 Body mass index (BMI) [Ratio] 53.9 kg/m2 Portillo Peters MD, IBCLC Work Phone: [facility] 01-26-2025 14:54-0400 Body temperature 98.6 [degF] Portillo Peters MD, IBCLC Work Phone: [facility] 01-26-2025 14:54-0400 Body weight 125.19 kg Portillo Peters MD, IBCLC Work Phone: [facility] 01-26-2025 14:54-0400 Diastolic blood pressure 70 mm[Hg] Portillo Peters MD, IBCLC Work Phone: [facility] 01-26-2025 14:54-0400 Heart rate 92 /min Portillo Peters MD, IBCLC Work Phone: [facility] 01-26-2025 14:54-0400 Respiratory rate 18 /min Portillo Peters MD, IBCLC Work Phone: [facility] 01-26-2025 14:54-0400 SaO2% (BldA) [Mass fraction] 97 % Portillo Peters MD, IBCLC Work Phone: [facility] 01-26-2025 14:54-0400 Systolic blood pressure 120 mm[Hg] Portillo Peters MD, IBCLC Work Phone: [facility] 08-01-2024 09:16-0500 Body mass index (BMI) [Ratio] 48.98 kg/m2 Ben Jackelin DO Work Phone: [facility] 08-01-2024 09:16-0500 Body weight 113.76 kg Ben Jackelin DO Work Phone: [facility] 08-01-2024 09:16-0500 Diastolic blood pressure 70 mm[Hg] Ben Jackelin DO Work Phone: [facility] 08-01-2024 09:16-0500 Systolic blood pressure 120 mm[Hg] Ben Jackelin DO Work Phone: [facility] 06-13-2024 08:46-0400 Body mass index (BMI) [Ratio] 46.31 kg/m2 Ben Jackelin DO Work Phone: [facility] 06-13-2024 08:46-0400 Body weight 107.56 kg Ben Jackelin DO Work Phone: [facility] 06-13-2024 08:46-0400 Diastolic blood pressure 78 mm[Hg] Ben Jackelin DO Work Phone: [facility] 06-13-2024 08:46-0400 Systolic blood pressure 126 mm[Hg] Ben Jackelin DO Work Phone: [phone] [place] [address] 06-12-2024 10:03-0400 Diastolic blood pressure 67 mm[Hg] Bartolo Lakhani [facility] 06-12-2024 10:03-0400 Heart rate 81 /min Bartolo Narvaeze [facility] 06-12-2024 10:03-0400 Mean blood pressure 85 mm[Hg] Bartolo Narvaeze [facility] 06-12-2024 10:03-0400 Respiratory rate 16 /min Bartolo Narvaeze [facility] 06-12-2024 10:03-0400 SaO2% (BldA) [Mass fraction] 97 % Bartolo Narvaeze [facility] 06-12-2024 10:03-0400 Systolic blood pressure 120 mm[Hg] Bartolo Narvaeze [facility] 06-12-2024 07:39-0400 Body temperature 98.42 [degF] Bartolo Narvaeze [facility] 06-12-2024 07:39-0400 Diastolic blood pressure 77 mm[Hg] Bartolo Narvaeze [facility] 06-12-2024 07:39-0400 Heart rate 97 /min Bartolo Narvaeze [facility] 06-12-2024 07:39-0400 Respiratory rate 20 /min Bartolo Narvaeze [facility] 06-12-2024 07:39-0400 SaO2% (BldA) [Mass fraction] 99 % Bartolo Narvaeze [facility] 06-12-2024 07:39-0400 Systolic blood pressure 131 mm[Hg] Bartolo Narvaeze [facility] 06-08-2024 11:12-0400 Body mass index (BMI) [Ratio] 46.29 kg/m2 Ben Jackelin DO Work Phone: [facility] 06-08-2024 11:12-0400 Body weight 107.5 kg Ben Jackelin DO Work Phone: [facility] 06-08-2024 11:12-0400 Diastolic blood pressure 74 mm[Hg] Ben Jackelin DO Work Phone: [facility] 06-08-2024 11:12-0400 Systolic blood pressure 120 mm[Hg] Ben Jackelin DO Work Phone: [facility] 11-11-2023 13:56-0500 Body height 152.4 cm Portillo Peters MD, IBCLC Work Phone: [facility] 11-11-2023 13:56-0500 Body mass index (BMI) [Ratio] 43.71 kg/m2 Portillo Peters MD, IBCLC Work Phone: [facility] 11-11-2023 13:56-0500 Body temperature 96.49 [degF] Portillo Peters MD, IBCLC Work Phone: [facility] 11-11-2023 13:56-0500 Body weight 101.52 kg Portillo Peters MD, IBCLC Work Phone: [facility] 11-11-2023 13:56-0500 Diastolic blood pressure 68 mm[Hg] Portillo Peters MD, IBCLC Work Phone: [facility] 11-11-2023 13:56-0500 Heart rate 86 /min Portillo Peters MD, IBCLC Work Phone: [facility] 11-11-2023 13:56-0500 SaO2% (BldA) [Mass fraction] 99 % Portillo Peters MD, IBCLC Work Phone: [facility] 11-11-2023 13:56-0500 Systolic blood pressure 120 mm[Hg] Portillo Peters MD, IBCLC Work Phone: [facility] 11-02-2023 14:13-0500 Body height 152.4 cm Portillo Peters MD, IBCLC Work Phone: [facility] 11-02-2023 14:13-0500 Body mass index (BMI) [Ratio] 44.57 kg/m2 Portillo Peters MD, IBCLC Work Phone: [facility] 11-02-2023 14:13-0500 Body temperature 96.4 [degF] Portillo Peters MD, IBCLC Work Phone: [facility] 11-02-2023 14:13-0500 Body weight 103.51 kg Portillo Peters MD, IBCLC Work Phone: [facility] 11-02-2023 14:13-0500 Diastolic blood pressure 68 mm[Hg] Portillo Peters MD, IBCLC Work Phone: [facility] 11-02-2023 14:13-0500 Heart rate 76 /min Portillo Peters MD, IBCLC Work Phone: [facility] 11-02-2023 14:13-0500 SaO2% (BldA) [Mass fraction] 98 % Portillo Peters MD, IBCLC Work Phone: [facility] 11-02-2023 14:13-0500 Systolic blood pressure 128 mm[Hg] Portillo Peters MD, IBCLC Work Phone: [facility] Healthcare Encounters Encounter Date Encounter Type Care Provider Facility Start: 02-24-2025 End: 02-24-2025 ambulatory Ben R JACKELIN Facility[place] Start: 02-24-2025 End: 02-24-2025 Patient encounter procedure Ben BENÍTEZ [facility] Start: 01-26-2025 End: 01-26-2025 Patient encounter status Portillo Peters MD, IBCLC Work Phone: [facility] Work Phone: Start: 01-26-2025 End: 01-26-2025 Periodic preventive med est patient 18-39 yrs Portillo Peters MD, IBCLC Work Phone: [facility] Comment on above: Well adult exam (Lanie zarina Dx); Hyperinsulinism; Morbid (severe) obesity due to excess calories (CMS/HCC); Prediabetes; Insulin resistance; Infertility, female; Uterine cervical insufficiency during ; Anxiety and depression (CMS/HCC) Start: 01-26-2025 End: 01-26-2025 ambulatory PORTILLO PETERS Not Available Start: 01-26-2025 End: 01-26-2025 ambulatory Ben R JACKELIN Facility:[facility] Start: 01-26-2025 End: 01-26-2025 Patient encounter procedure Ben R JACKELIN [facility] Start: 12-26-2024 End: 12-27-2024 ambulatory Ben R JACKELIN Facility:[facility] Start: 12-26-2024 End: 12-27-2024 Patient encounter procedure Ben R JACKELIN [facility] Start: 11-25-2024 End: 11-25-2024 ambulatory Ben R JACKELIN Facility:[facility] Start: 11-25-2024 End: 11-25-2024 Patient encounter procedure Ben R JACKELIN [facility] Start: 10-23-2024 End: 10-23-2024 ambulatory Ben R JACKELIN Facility:[facility] Start: 10-23-2024 End: 10-23-2024 Patient encounter procedure Ben R JACKELIN [facility] Start: 08-01-2024 End: 08-01-2024 Bamboo flowsheet Ben Jackelin DO Work Phone: [facility] Start: 08-01-2024 End: 08-01-2024 Bamboo flowsheet Ben Jackelin DO Work Phone: [facility] Start: 08-01-2024 End: 08-01-2024 Office outpatient visit 15 minutes Ben Jackelin DO Work Phone: [facility] Comment on above: Miscarriage; H/O cervical incompetence Start: 08-01-2024 End: 08-01-2024 ambulatory BEN JACKELIN Not Available Start: 06-15-2024 End: 06-15-2024 Evaluation and management of inpatient SKINNY MERCADO [facility] Start: 06-13-2024 End: 06-13-2024 Bamboo flowsheet Ben Jackelin DO Work Phone: [facility] Start: 06-13-2024 End: 06-13-2024 Bamboo flowsheet Ben Jackelin DO Work Phone: [facility] Start: 06-13-2024 End: 06-15-2024 Evaluation and management of inpatient JULIEN HAYES [facility] Start: 06-13-2024 End: 06-13-2024 flow sheet Ben Jackelin DO Work Phone: [facility] Comment on above: Second trimester pre gnancy; Short cervix; Vaginal bleeding before 22 weeks gestation Start: 06-13-2024 End: 06-13-2024 ambulatory BEN JACKELIN Not Available Start: 06-12-2024 End: 06-12-2024 Emergency department patient visit Bartolo Lakhani [facility] Start: 06-08-2024 End: 06-13-2024 Clinisync Result Encounter Ben Jackelin DO Work Phone: [facility] Unsolicited Start: 06-08-2024 End: 06-09-2024 External Result Encounter Ben Jackelin DO Work Phone: [facility]solic[facility] Start: 06-08-2024 End: 06-13-2024 External Result Encounter Ben Jackelin DO Work Phone: [facility]solic[facility] Start: 06-08-2024 End: 06-08-2024 Patient encounter procedure Ben Jackelin DO Work Phone: [facility] Start: 06-08-2024 End: 06-08-2024 Periodic preventive med est patient 18-39 yrs Ben Jackelin DO Work Phone: [facility] Comment on above: Well woman exam with routine gynecological exam; Exposure to STD; Need for maternal serum alpha-protein (MSAFP) screening; Second trimester ; Screening, , for anatomic survey; Gestational diabetes mellitus (GDM), antepartum, gestational diabetes method of control unspecified; Elevated glucose tolerance test Start: 06-08-2024 End: 06-08-2024 ambulatory BEN JACKELIN Not Available Start: 06-03-2024 End: 06-03-2024 ambulatory Ben R JACKELIN Facility:[facility] Start: 06-03-2024 End: 06-03-2024 Patient encounter procedure Ben R JACKELIN [facility] Start: 05-11-2024 End: 05-11-2024 ambulatory BEN JACKELIN Not Available Start: 04-29-2024 End: 04-29-2024 ambulatory Ben R JACKELIN Facility:[facility] Start: 04-29-2024 End: 04-29-2024 Patient encounter procedure Ben R JACKELIN [facility] Start: 04-13-2024 End: 04-13-2024 ambulatory PORTILLO PETERS Not Available Start: 11-11-2023 Bamboo flowsheet Portillo caballero MD, IBCLC Work Phone: [facility] Start: 11-11-2023 Tiffanie flowsgabriela caballero MD, IBCLC Work Phone: [facility] Start: 11-11-2023 End: 11-11-2023 Office outpatient visit 25 minutes Portillo Peters MD, IBCLC Work Phone: [facility] Comment on above: Hyperinsulinism (Lanie zarina Dx); Encounter for preconception consultation Start: 11-07-2023 Chart abstracting Portillo lucas MD, IBCLC Work Phone: [facility] Start: 11-02-2023 End: 11-02-2023 Office outpatient new 45 minutes Portillo Peters MD, IBCLC Work Phone: [facility] Comment on above: Anxiety (Primary Dx) ; Morbid (severe) obesity due to excess calories (E66.01); BMI 40.0-44.9, adult ([facility]); Prediabetes; Hyperinsulinism; Irregular menstrual cycle; Infertility, female; Encounter for screening involving social determinants of health (SDoH); Insulin resistance Start: 09-22-2021 End: 12-22-2021 Recurring Pari Hernandes [facility] Procedures Date Procedure Procedure Detail Performing Clinician Start: 06-08-2024 URETHRITIS/DISCHARGE PLUS VAGINITIS (HTRX) [employer] DO Work Phone: Start: 06-08-2024 Urnls dip stick/tabl et rgnt non-auto w/o micrscp [employer] DO Work Phone: Start: 06-08-2024 IGP,APTIMA HPV,AGE [employer] Work Phone: Start: 06-08-2024 Microscopic observat ion [Identifier] in Cervix by Cyto stain [employer] DO Work Phone: Start: 01-01-2023 Microscopic observat ion [Identifier] in Cervix by Cyto stain [employer] DO Work Phone: Cholecystectomy Pari King n Structure of wisdom tooth (body structure) Pari Hernandes Comment on above: x4 Tonsillectomy and adenoidectomy Pari Hernandes Plan of Treatment Date Care Activity Detail Author Start: 06-08-2029 Screening for malign ant neoplasm of cervix [facility] Start: 01-02-2028 Screening for malign ant neoplasm of cervix [facility] Start: 01-01-2026 Screening for malign ant neoplasm of cervix Pap Smear [facility] Start: 05-28-2025 Influenza vaccination Influenz a Vaccine (Season Ended) [facility] Start: 08-01-2024 End: 08-01-2024 Patient encounter procedure 08/01/2024 8:50 AM EST Office Visit [facility] [address] [place] [id number] Ben Benítez, [address] [place] [address] Arrived [facility] Comment on above: Arrived Start: 07-06-2024 End: 07-06-2024 Patient encounter procedure [facility] Start: 07-06-2024 End: 07-06-2024 Professional / ancillary services management 07/06/2024 9:00 AM EDT Ancillary Procedure [facility] [address] [place] [id number] [facility] Start: 06-13-2024 End: 06-13-2024 Patient encounter procedure [facility] Comment on above: Arrived Start: 06-13-2024 End: 06-13-2024 Professional / ancillary services management 06/13/2024 8:00 AM EDT Ancillary Procedure [facility] [address] [place] [id number] [facility] Start: 06-08-2024 End: 07-08-2024 Alpha fetoprotein, maternal Alpha fetoprotein, maternal Lab Routine Need for maternal serum alpha-protein (MSAFP) screening Expected: 06/08/2024 (Approximate), Expires: 07/08/2024 [facility] Comment on above: Expected: 06/08/2024 (Approximate), Expires: 07/08/2024 Start: 06-08-2024 End: 06-08-2025 US for US OB ANATOMY SINGLE W US OB CERVICAL LENGTH Imaging Routine Screening, , for anatomic survey Expected: 06/08/2024 (Approximate), Expires: 06/08/2025 [facility] Comment on above: Expected: 06/08/2024 (Approximate), Expires: 06/08/2025 Start: 05-28-2024 Influenza vaccination Influenza Vacc ine (#1) [facility] Start: 03-26-2024 Influenza vaccination Influenza Vacc ine (#1) [facility] Comment on above: Postponed from 05/28 (Patient Refused) Start: 11-16-2023 End: 11-16-2023 Patient encounter procedure 11/16/2023 9:10 AM EST Office Visit [facility] [address] [place] [phone] Ben Benítez DO [address] [place] [address] [facility] Start: 11-11-2023 End: 11-11-2023 Patient encounter procedure [facility] Comment on above: Arrived Start: 11-02-2023 End: 11-02-2024 17-Hydroxyprogesterone 17-Hydroxyprogesterone Lab Routine Morbid (severe) obesity due to excess calories (E66.01) BMI 40.0-44.9, adult (CMS/HCC) Hyperinsulinism Irregular menstrual cycle Infertility, female Expected: 11/02/2023 (Approximate), Expires: 11/02/2024 [facility] Comment on above: Expected: 11/02/2023 (Approximate), Expires: 11/02/2024 Start: 11-02-2023 End: 11-02-2024 Antimullerian hormone (AMH) Antimullerian hormone (AMH) Lab Routine Morbid (severe) obesity due to excess calories (E66.01) BMI 40.0-44.9, adult (CMS/HCC) Hyperinsulinism Irregular menstrual cycle Infertility, female Expected: 11/02/2023 (Approximate), Expires: 11/02/2024 [facility] Comment on above: Expected: 11/02/2023 (Approximate), Expires: 11/02/2024 Start: 11-02-2023 End: 11-02-2024 Cortisol Cortisol Lab Routine Morbid (severe) obesity due to excess calories (E66.01) BMI 40.0-44.9, adult (CMS/HCC) Hyperinsulinism Irregular menstrual cycle Infertility, female Expected: 11/02/2023 (Approximate), Expires: 11/02/2024 [facility] Work Phone: Comment on above: Expected: 11/02/2023 (Approximate), Expires: 11/02/2024 Start: 11-02-2023 End: 11-02-2024 DHEA level DHEA level Lab Routine Morbid (severe) obesity due to excess calories (E66.01) BMI 40.0-44.9, adult (CMS/HCC) Hyperinsulinism Irregular menstrual cycle Infertility, female Expected: 11/02/2023 (Approximate), Expires: 11/02/2024 [facility] Comment on above: Expected: 11/02/2023 (Approximate), Expires: 11/02/2024 Start: 11-02-2023 End: 11-02-2024 Hemoglobin A1c measurement Hemoglobin A1c Lab Routine Morbid (severe) obesity due to excess calories (E66.01) BMI 40.0-44.9, adult (CMS/HCC) Hyperinsulinism Irregular menstrual cycle Infertility, female Expected: 11/02/2023 (Approximate), Expires: 11/02/2024 [facility] Comment on above: Expected: 11/02/2023 (Approximate), Expires: 11/02/2024 Start: 11-02-2023 End: 11-02-2024 Prolactin level Prolactin level Lab Routine Morbid (severe) obesity due to excess calories (E66.01) BMI 40.0-44.9, adult (CMS/HCC) Hyperinsulinism Irregular menstrual cycle Infertility, female Expected: 11/02/2023 (Approximate), Expires: 11/02/2024 [facility] Comment on above: Expected: 11/02/2023 (Approximate), Expires: 11/02/2024 Start: 11-02-2023 End: 11-02-2024 TSH W/REFLEX TO FT4 TSH W/REFLEX TO FT4 Lab Routine Morbid (severe) obesity due to excess calories (E66.01) BMI 40.0-44.9, adult (CMS/HCC) Hyperinsulinism Irregular menstrual cycle Infertility, female Expected: 11/02/2023 (Approximate), Expires: 11/02/2024 [facility] Comment on above: Expected: 11/02/2023 (Approximate), Expires: 11/02/2024 Start: 2012 Screening for malign ant neoplasm of cervix Pap Smear [facility] CHLAMYDIA TRACHOMATI S (GENITO/STI) CHLAMYDIA TRACHOMATIS (GENITO/STI) Lab Routine Exposure to STD Ordered: 06/08/2024 [facility] Comment on above: Ordered: 06/08/2024 Cytology Cervical or vaginal smear or scraping study Pap Smear Pathology and Cytology Routine Well woman exam with routine gynecological exam Ordered: 06/08/2024 [facility] Comment on above: Ordered: 06/08/2024 Human papilloma viru s DNA [Presence] in Unspecified specimen by Probe with amplification HPV DNA probe, amplified Microbiology Routine Well woman exam with routine gynecological exam Ordered: 06/08/2024 [facility] Comment on above: Ordered: 06/08/2024 Neisseria gonorrhoea e DNA [Presence] in Unspecified specimen by KATE with probe detection Neisseria gonorrhea DNA probe, direct Lab Routine Exposure to STD Ordered: 06/08/2024 [facility] Comment on above: Ordered: 06/08/2024 SURESWAB(R) ADVANCED VAGINITIS PLUS, TMA SURESWAB(R) ADVANCED VAGINITIS PLUS, TMA Pathology and Cytology Routine Exposure to STD Ordered: 06/08/2024 [facility] Work Phone: Comment on above: Ordered: 06/08/2024 Payers Date Payer Category Payer Private Health Insurance [id number] 2023 Unknown [id number] 2023 Unknown [id number] 1991 Unknown [id number] 2.16.8 [id number] 1991 Unknown [id number] 2.16.8 [id number] 1991 Unknown [id number] 2.16.8 40.1.801905.3.579.2.1286 1991 Unknown [id number] 2.16.8 40.1.630235.3.579.2.1286 1991 Unknown [id number] 2.16.8 40.1.678937.3.579.2.1286 1991 Unknown [id number] 2.16.8 40.1.468519.3.579.2.727 1991 Unknown [id number] 2.16.8 40.1.273322.3.579.2.727 1991 Unknown [id number] 2.16.8 40.1.903928.3.579.2.727 1991 Unknown [id number] 2.16.8 40.1.115982.3.579.2.727 1991 Unknown [id number] 2.16.8 40.1.436473.3.579.2.727 1991 Unknown [id number] 2.16.84 0.1.148935.3.579.2.9 1991 Unknown [id number] 2.16.84 0.1.548346.3.579.2.9 1991 Unknown [id number] 2.16.84 0.1.069547.3.579.2.9 1991 Unknown [id number] 2.16.84 0.1.067693.3.579.2.9 1991 Unknown [id number] 2.16.84 0.1.934621.3.579.2.9 1991 Unknown [id number] 2.16.84 0.1.489095.3.579.2.9 1991 Unknown [id number] 2.16.8 [id number] Social History Date Type Detail Facility Start: 09-22-2021 Tobacco smoking status Ex-smoker (finding) [facility] Tobacco smoking status Never [facility] Start: 11-01-2023 End: 01-23-2025 Sex Assigned At Female [facility] Start: 11-02-2023 Tobacco smoking status NHIS Never smoked tobacco [facility] Start: 11-02-2023 Tobacco use and exposure Smokeless tobacco non-user [facility] Start: 11-02-2023 End: 01-26-2025 Alcohol intake Current drinker of alcohol (finding) [facility] Start: 11-01-2023 End: 01-23-2025 History of Social function [facility] Within [...] To some extent [facility] (I/We) worried whetrudi er (my/our) food would run out before (I/we) got money to buy more. Never true [facility] Start: 11-02-2023 Tobacco Comment Former smoker, quit in 2020 [facility] Start: 11-02-2023 Alcohol Comment On special occasions [facility] Start: 1990 Sex Assigned At Not on file [facility] Start: 02-24-2024 [facility] Sexual Orientation [facility] Sex Female (finding) [facility] Do you feel stress - tense, restless, nervous, or anxious, or unable to sleep at night because your mind is troubled all the time - these days [OSQ] Only a little [facility] Start: 1990 Sex assigned at Female [facility] Start: 01-06-2025 Gender identity Identifies as female gender (finding) [facility] Start: 01-06-2025 Sexual orientation Heterosexual (finding) [facility] Medical Equipment Procedure Code Equipment Code Equipment Origin al Text Equipment Identifier Dates 1 each by Other route in the morning and 1 each at noon and 1 each in the evening and 1 each before bedtime. Use to check FSBS 4 times daily as directed. [id number] Start: 06-08-2024 End: 10-11-2024 1 each by In Vit ro route Daily Use to check FSBS four times daily [id number] Start: 06-08-2024 End: 07-08-2024 Goals Date Patient Goal Desired Activity /State Personal health goal Functional Status Date Assessment Result Facility 06-12-2024 Functional Status N/A [facility] Clinical Notes 11-02-2023 to 01-26-2025 Portillo Peters MD, IBCLC - 01/26/2025 3:00 PM Enedelia Brito LPN - 08/01/2024 8:50 AM Domingo Brito INSTRUMENTATION TECH - 06/13/2024 8:30 AM Alannah Ruiz INSTRUMENTATION TECH - 06/08/2024 10:40 AM EDTPatient Instructions Note Date & Type Note Facility 01-26-2025 History of Present illness Narrative Images from the original note were not included. Sharlene Samano is a 34 y.o. female who presents today for annual physical & wellness exam. Subjective History of Present Illness The patient came in to discuss her loss, prediabetes, and mental health. She shared that she lost her baby at 17 weeks and 6 days in May 2024 due to an insufficient cervix. Despite regular check-ups, she started bleeding a little and went to [facility], where they did an ultrasound and said the baby was fine but she was at risk of miscarriage. [facility] where they almost did a cerclage, but her cervix dilated too quickly. She had to undergo a D and C procedure on June 14, 2024, because the placenta was still attached. During the procedure, her IV blew out, causing her to feel a lot of pain. She is seeing a grief therapist and a psychiatrist and feels she is doing okay with their support. She has started taking metformin again, which she was on during her , now at a lower dose of 500 mg daily instead of 1000 mg twice daily. She hasn't had any side effects from the medication. She doesn't want to use Ozempic again because it caused weight gain and muscle loss. She is currently taking vitamins and sertraline, which she tolerates well. She also mentioned occasional back pain when laughing hard, which started after a spinal tap procedure. She has been on Humira since September 2024, taking it for 5 days during each menstrual cycle. Her progesterone level was 1.5 in September 2024. She is trying to conceive again due to her age and is happy that she can get , although she has gained weight since her last . PAST SURGICAL HISTORY: - D and C procedure on June 14, 2024, due to placental retention. Past Medical History: Diagnosis Date Anxiety and depression (CMS/HCC) Miscarriage Obesity All my life Visual impairment 1999 Past Surgical History: Procedure Laterality Date ADENOIDECTOMY 2002 CHOLECYSTECTOMY 2012 DILATION AND CURETTAGE OF UTERUS 05/2024 GALLBLADDER 2016 TONSILLECTOMY 2003 WISDOM TOOTH EXTRACTION [...] Social History Narrative Not on file Social Drivers of Health Financial Resource Strain: Low Risk (01/23/2025) Overall Financial Resource Strain (CARDIA) Difficulty of Paying Living Expenses: Not hard at all Food Insecurity: No Food Insecurity (01/23/2025) Hunger Vital Sign Worried About Running Out of Food in the Last Year: Never true Ran Out of Food in the Last Year: Never true Transportation Needs: No Transportation Needs (01/23/2025) PRAPARE - Transportation Lack of Transportation (Medical): No Lack of Transportation (Non-Medical): No Physical Activity: Insufficiently Active (01/23/2025) Exercise Vital Sign Days of Exercise per Week: 2 days Minutes of Exercise per Session: 20 min Stress: No Stress Concern Present (01/23/2025) [employer] - Occupational Stress Questionnaire Feeling of Stress : Only a little Social Connections: Moderately Isolated (01/23/2025) Social Connection and Isolation Panel [NHANES] Frequency of Communication with Friends and Family: More than three times a week Frequency of Social Gatherings with Friends and Family: Once a week Attends Restorationism Services: Never Active Member of Clubs or Organizations: No Attends Club or Organization Meetings: Never Marital Status: Intimate Partner Violence: Not At Risk (01/23/2025) Humiliation, Afraid, Rape, and Kick questionnaire Fear of Current or Ex-Partner: No Emotionally Abused: No Physically Abused: No Sexually Abused: No Housing Stability: Low Risk (01/23/2025) Housing Stability Vital Sign Unable to Pay for Housing in the Last Year: No Number of Times Moved in the Last Year: 0 Homeless in the Last Year: No Family History Problem Relation Name Age of Onset Miscarriages / Stillbirths Mother Jayahsree Jaimes Diabetes Father Lenard Jaimes Diabetes Paternal Grandmother Ruby Jaimes Cancer Paternal Grandmother Ruby Jaimes COPD Paternal Grandmother Ruby Jaimes Stroke Maternal Grandmother Lester Powers Mental illness Brother Allen Albrecht Current Outpatient Medications on File Prior to Visit Medication Sig Dispense Refill letrozole (Femara) 2.5 MG chemo tablet Take 2.5 mg by mouth 3 (three) times a day. Take with or without food. Vit-Fe Fumarate-FA ( One Daily) 27-0.8 MG tablet Take by mouth sertraline (Zoloft) 100 MG tablet TAKE 1 TABLET BY MOUTH EVERY DAY FOR 90 DAYS 90 tablet 3 [DISCONTINUED] metFORMIN XR (Glucophage-XR) 500 MG 24 hr tablet Take 1 tablet (500 mg) by mouth in the evening. Take with meals Do not crush, chew, or split. 30 tablet 11 [DISCONTINUED] azithromycin (Zithromax Z-Jaziel) 250 MG tablet As directed 6 tablet 0 No current facility-administered medications on file prior to visit. I have reviewed and reconciled the history and medication list with the patient today. Healthcare Maintenance & Screening Schedule Health Maintenance Topic Date Due Influenza Vaccine (Season Ended) 2025 Cervical Cancer Screening 06/08/2029 Immunization History Administered Date(s) Administered Moderna SARS-CoV-2 Vaccination 01/08/2021, 02/07/2021, 09/16/2021 Care Team Patient Care Team: Portillo Peters MD, IBCLC as PCP - General (Family Medicine) Portillo Peters MD, IBCLC as PCP - [facility] [employer] Ben Benítez DO as Referring Physician (Obstetrics and Gynecology) Objective Vitals: Vitals: 01/26/25 1454 BP: 120/70 Pulse: 92 Resp: 18 Temp: 98.6 F SpO2: 97% Physical Exam: Physical Exam Constitutional: General: She is not in acute distress. Appearance: Normal appearance. Eyes: Conjunctiva/sclera: Conjunctivae normal. Cardiovascular: Rate and Rhythm: Normal rate and regular rhythm. Heart sounds: Normal heart sounds. Pulmonary: Effort: Pulmonary effort is normal. Breath sounds: Normal breath sounds. Musculoskeletal: General: No swelling. Normal range of motion. Cervical back: Normal range of motion and neck supple. Skin: General: Skin is warm and dry. Neurological: General: No focal deficit present. Mental Status: She is alert. Psychiatric: Attention and Perception: Attention and perception normal. Mood and Affect: Mood and affect normal. Speech: Speech normal. Behavior: Behavior normal. Behavior is cooperative. Thought Content: Thought content normal. Assessment & Plan Sharlene Samano is a 34 y.o. female who presents today for annual physical & wellness exam. Diagnoses and all orders for this visit: Hyperinsulinism - metFORMIN (Glucophage) 1000 MG tablet; Take 1 tablet (1,000 mg) by mouth in the morning and 1 tablet (1,000 mg) in the evening. Take with meals. Morbid (severe) obesity due to excess calories (CMS/HCC) - metFORMIN (Glucophage) 1000 MG tablet; Take 1 tablet (1,000 mg) by mouth in the morning and 1 tablet (1,000 mg) in the evening. Take with meals. Prediabetes - metFORMIN (Glucophage) 1000 MG tablet; Take 1 tablet (1,000 mg) by mouth in the morning and 1 tablet (1,000 mg) in the evening. Take with meals. Insulin resistance - metFORMIN (Glucophage) 1000 MG tablet; Take 1 tablet (1,000 mg) by mouth in the morning and 1 tablet (1,000 mg) in the evening. Take with meals. Infertility, female - metFORMIN (Glucophage) 1000 MG tablet; Take 1 tablet (1,000 mg) by mouth in the morning and 1 tablet (1,000 mg) in the evening. Take with meals. Uterine cervical insufficiency during Anxiety and depression (CMS/HCC) Assessment & Plan # loss - resolved. - Experienced a loss at 17 weeks and 6 days due to cervical insufficiency - A D and C procedure was performed on 06/14/2024 due to placental retention. - Discussed that D and C can create some scar tissue which can make it less likely for an embryo to implant or if it does implant in the scar tissue, sometimes it cannot grow as expected due to less blood supply. However, it is dependent on whether there is any scar tissue present or not. - Intravaginal progesterone and cerclage at 10 weeks were discussed as preventive measures for future pregnancies; to be reviewed with her OBGYN # Prediabetes - Chronic, stable. - Advised to engage in strength-based exercises to improve muscle mass and reduce insulin resistance. - Prescription for metformin 1000 mg twice daily will be sent to pharmacy. - Discussed potential risks associated with the extended-release version of metformin. - Metformin is considered safe to take during and may help with fertility due to its effect on insulin resistance. # Mental health - Chronic, stable. - Currently seeing a grief therapist and a psychiatrist for medication management. - Reports doing okay on this front with good support. - Currently on sertraline and reports no issues. - The current dosage of sertraline will be maintained. # Family planning - Chronic. - Patient expressed desire to start trying for immediately due to age considerations. - reviewed medication safety in - vitamin is being taken regularly. # obesity Wt Readings from Last 5 Encounters: 01/26/25 276 lb 08/01/24 250 lb 12.8 oz 06/13/24 237 lb 1.9 oz 06/08/24 237 lb 05/11/24 234 lb Nutrition: I recommend a fruit/vegetable & protein source with every meal/snack. Minimize excess sugar and processed foods. Avoid full-sugar sodas. Exercise: I recommend 150 minutes of ardio exercise per week for cardiovascular health. Additional weight training and/or cardio may be needed to achieve weight loss. # well adult exam - Normal physical exam today, except as noted. - Medication reconciliation completed. - Chronic conditions reviewed, stable. - Reviewed healthcare maintenance and screening recommendations. - Counseled on nutrition and exercise recommendations. - Reviewed immunizations recommendations Follow-up: 1 year, or sooner SENTHIL Peters MD, IBCLC formerly [facility] documented in this encounter [facility] 08-01-2024 History of Present illness Narrative Reason for Appointment: Patient ID: Sharlene Samano is a 34 y.o. female who presents for follow up miscarriage Patient presents today for Acute Visit. MEDICATIONS Current Outpatient Medications Medication Instructions Vit-Fe Fumarate-FA ( One Daily) 27-0.8 MG tablet Take by mouth sertraline (Zoloft) 100 MG tablet TAKE 1 TABLET BY MOUTH EVERY DAY FOR 90 DAYS ALLERGIES No Known Allergies PROBLEMS Active Ambulatory Problems Diagnosis Date Noted Anxiety 11/02/2023 Insulin resistance 11/02/2023 Irregular menstrual cycle 11/02/2023 Morbid (severe) obesity due to excess calories ([facility]) 11/02/2023 BMI 40.0-44.9, adult ([facility]) 11/02/2023 Prediabetes 11/02/2023 Hyperinsulinism 11/02/2023 Infertility, female 11/04/2023 Resolved Ambulatory Problems Diagnosis Date Noted No Resolved Ambulatory Problems Past Medical History: Diagnosis Date Anxiety and depression (CMS/HCC) Miscarriage Obesity All my life Visual impairment 1999 HISTORY PAST MEDICAL HISTORY SOCIAL HISTORY Past Medical History: Diagnosis Date Anxiety and depression ([facility]) Miscarriage Obesity All my life Visual impairment 1999 Social History Tobacco Use Smoking status: Never Smokeless tobacco: Never Tobacco comments: Former smoker, quit in 2020 Substance Use Topics Alcohol use: Yes Comment: On special occasions Drug use: Yes Frequency: 1.0 times per week Types: Marijuana Comment: On occasion, not daily. FAMILY HISTORY Family History Problem Relation Name Age of Onset Miscarriages / Stillbirths Mother Jayashree Jaimes Diabetes Father Lenard Moorel Diabetes Paternal Grandmother Ruby Moorel Cancer Paternal Grandmother Ruby Moorel COPD Paternal Grandmother Ruby Jaimes Stroke Maternal Grandmother Lester Powers Mental illness Brother Allen Albrecht SURGICAL HISTORY Past Surgical History: Procedure Laterality Date ADENOIDECTOMY 2003 CHOLECYSTECTOMY 2013 GALLBLADDER 2016 TONSILLECTOMY 2003 WISDOM TOOTH EXTRACTION REVIEW OF SYSTEMS Review of Systems: Review of Systems Constitutional: Negative. HENT: Negative. Eyes: Negative. Respiratory: Negative. Cardiovascular: Negative. Gastrointestinal: Negative. Genitourinary: Negative. Musculoskeletal: Negative. Skin: Negative. Neurological: Negative. All other systems reviewed and are negative. Hematological: Negative. Endocrine: Negative. Allergic/Immunologic: Negative. OBJECTIVE Objective: Physical Exam Constitutional: Appearance: Normal appearance. She is well-developed. Cardiovascular: Rate and Rhythm: Normal rate and regular rhythm. Pulmonary: Effort: Pulmonary effort is normal. Breath sounds: Normal breath sounds. Abdominal: General: Bowel sounds are normal. There is no distension. Palpations: Abdomen is soft. Tenderness: There is no abdominal tenderness. There is no guarding or rebound. Musculoskeletal: General: No swelling. Normal range of motion. Right lower leg: No edema. Left lower leg: No edema. Neurological: Mental Status: She is alert and oriented to person, place, and time. Skin: General: Skin is warm and dry. Psychiatric: Mood and Affect: Mood normal. Behavior: Behavior normal. Vitals and nursing note reviewed. Exam conducted with a oil lease broker present. Vitals: Estimated body mass index is 48.98 kg/m as calculated from the following: Height as of 11/11/23: 5'. Weight as of this encounter: 250 lb 12.8 oz. BP: 120/70 No LMP recorded. ASSESSMENT & PLAN ICD-10-CM 1. Miscarriage O03.9 2. H/O cervical incompetence Z87.42 Patient presents today to follow up after a recent miscarriage. I have discussed miscarriage with patient in detail. Patient has been advised to wait a full cycle until trying to conceive again, patient voiced understanding, and will call when so office can call in progesterone suppositories. Discussed waiting three months to start femara. Pt to start trying to conceive now that she has had a period. Will see Dr Betancourt right away. Follow Up: As needed- discussed cerclage for next at 12 weeks. Documented by Nevaeh Brito LPN on behalf of: Ben Benítez DO documented in this encounter [facility] 06-13-2024 History of Present illness Narrative Reason for Appointment: Patient ID: Sharlene Samano is a 34 y.o. female who presents for Routine Visit Patient presents today for er follow up for vaginal bleeding and cervical shortening and Return OB appointment. MEDICATIONS Current Outpatient Medications Medication Instructions Alcohol Swabs (Alcohol Prep Pad) 70 % pads 1 Pad, Topical, Daily, Use four times daily to check FSBS. Blood Glucose Monitoring Suppl (FreeStyle [place] Lite) w/Device kit 1 Device, Does not apply, 4 times daily, Use to check FSBS in the morning (fasting) nd 1 hour after each meal for a total of 4 times daily. glucose blood (FREESTYLE TEST STRIPS) test strip 1 each, Other, 4 times daily, Use to check FSBS 4 times daily as directed Lancets Ultra Thin misc 1 each, In Vitro, Daily, Use to check FSBS four times daily metFORMIN (Glucophage) 1000 MG tablet TAKE 1 TABLET (1,000 MG) BY MOUTH IN THE MORNING AND IN THE EVENING WITH MEALS Vit-Fe Fumarate-FA ( One Daily) 27-0.8 MG tablet Oral Progesterone 200 mg, Vaginal, Nightly, Insert suppository vaginally every night at bedtime until 12 weeks gestation sertraline (Zoloft) 100 MG tablet TAKE 1 TABLET BY MOUTH EVERY DAY FOR 90 DAYS ALLERGIES No Known Allergies PROBLEMS Active Ambulatory Problems Diagnosis Date Noted Anxiety 11/02/2023 Insulin resistance 11/02/2023 Irregular menstrual cycle 11/02/2023 Morbid (severe) obesity due to excess calories ([facility]) 11/02/2023 BMI 40.0-44.9, adult ([facility]) 11/02/2023 Prediabetes 11/02/2023 Hyperinsulinism 11/02/2023 Infertility, female 11/04/2023 Resolved Ambulatory Problems Diagnosis Date Noted No Resolved Ambulatory Problems Past Medical History: Diagnosis Date Anxiety and depression ([facility]) Obesity All my life Visual impairment 1999 HISTORY PAST MEDICAL HISTORY SOCIAL HISTORY Past Medical History: Diagnosis Date Anxiety and depression ([facility]) Obesity All my life Visual impairment 1999 Social History Tobacco Use Smoking status: Never Smokeless tobacco: Never Tobacco comments: Former smoker, quit in 2020 Substance Use Topics Alcohol use: Yes Comment: On special occasions Drug use: Yes Frequency: 1.0 times per week Types: Marijuana Comment: On occasion, not daily. FAMILY HISTORY Family History Problem Relation Name Age of Onset Miscarriages / Stillbirths Mother Jayashree Jaimes Diabetes Father Lenard Jaimes Diabetes Paternal Grandmother Ruby Jaimes Cancer Paternal Grandmother Ruby Jaimes COPD Paternal Grandmother Ruby Jaimes Stroke Maternal Grandmother Lester Powers Mental illness Brother Allen Albrecht SURGICAL HISTORY Past Surgical History: Procedure Laterality Date ADENOIDECTOMY 2003 CHOLECYSTECTOMY 2013 GALLBLADDER 2016 TONSILLECTOMY 2003 WISDOM TOOTH EXTRACTION REVIEW OF SYSTEMS Review of Systems: Review of Systems Constitutional: Negative. HENT: Negative. Eyes: Negative. Respiratory: Negative. Cardiovascular: Negative. Gastrointestinal: Negative. Genitourinary: Negative. Musculoskeletal: Negative. Skin: Negative. Neurological: Negative. All other systems reviewed and are negative. Hematological: Negative. Endocrine: Negative. Allergic/Immunologic: Negative. OBJECTIVE Objective: Physical Exam Constitutional: Appearance: Normal appearance. She is well-developed. Cardiovascular: Rate and Rhythm: Normal rate and regular rhythm. Pulmonary: Effort: Pulmonary effort is normal. Breath sounds: Normal breath sounds. Abdominal: General: Bowel sounds are normal. There is no distension. Palpations: Abdomen is soft. Tenderness: There is no abdominal tenderness. There is no guarding or rebound. Musculoskeletal: General: No swelling. Normal range of motion. Right lower leg: No edema. Left lower leg: No edema. Neurological: Mental Status: She is alert and oriented to person, place, and time. Skin: General: Skin is warm and dry. Psychiatric: Mood and Affect: Mood normal. Behavior: Behavior normal. Vitals and nursing note reviewed. Exam conducted with a oil lease broker present. Vitals: Estimated body mass index is 46.31 kg/m as calculated from the following: Height as of 11/11/23: 5'. Weight as of this encounter: 237 lb 1.9 oz. BP: 126/78 Patient's last menstrual period was 02/10/2024. ASSESSMENT & PLAN ICD-10-CM 1. Second trimester Z34.92 2. Short cervix N88.3 3. Vaginal bleeding before 22 weeks gestation O20.9 Pt present as an ER follow up from [facility] for vaginal bleeding during . Pt has had shortened cervix that our office had been following. Pt states no pelvic exam was performed at [facility], had an ultrasound- reviewed ultrasound with pt. Pelvic exam performed- membranes seen coming through cervix. Dr counseled MFM Dr and pt was advised [facility]. Documented by Nevaeh Brito LPN on behalf of: Ben Benítez DO documented in this encounter [facility] 06-12-2024 Evaluation + Plan note Diagnostic Tests PendingUA with Cult Rflx 06/12/24 [facility] 06-12-2024 Hospital Discharge instructions Patient Education 06/12/2024 10:06:59 Activity Restriction During Activity Restriction During Your health care provider may recommend specific activity restrictions during for a variety of reasons. Activity restriction may require that you limit activities that take a lot of effort, such as exercise, lifting, or sex. The type of activity restriction will vary depending on your risk or the problems you are having. Activity restriction may be recommended for a period of time until your baby is delivered. Why are activity restrictions recommended? Activity restriction may be recommended if: Your placenta is partially or completely covering the opening of your cervix (placenta previa). There is bleeding between the wall of the uterus and the amniotic sac in the first trimester of (subchorionic hemorrhage). You went into labor too early ( labor). You have a history of miscarriage. You have a condition that causes high blood pressure during (preeclampsia or eclampsia). You are with more than one baby. Your baby is not growing well. What are the risks? Strict bed rest has physical and emotional risks and is no longer routinely recommended. The risks depend on your specific restriction. Risks of strict bed rest include: Loss of muscle conditioning from not moving. Blood clots. Social isolation. Depression. Loss of income. Talk with your health care team about activity restriction to decide if it is best for you and your baby. Even if you are having problems during your , you may be able to continue with normal levels of activity with careful monitoring by your health care provider. Follow these instructions at home: If needed, based on your overall health and the health of your baby, your health care provider will decide which type of activity restriction is right for you. Activity restrictions may include: Avoiding activities that take a lot of effort. Not lifting or straining. You may have to avoid lifting. Ask your health care provider how much you can safely lift. Resting in a sitting position or lying down for periods of time during the day. Pelvic rest may be recommended along with activity restrictions. If pelvic rest is recommended: Do not have sex or an orgasm. Do not use sexual stimulators. Do not use tampons. Do not douche. Do not put anything into your vagina. Avoid any activity in which your pelvic muscles could become strained, such as squatting or vigorous lower body exercises. Questions to ask your health care provider Why is my activity being limited? How will activity restrictions affect my body? Why is rest helpful for me and my baby? What activities can I do? When can I return to normal activities? Get help right away if: You have pain. This includes: ?Chest pain. ?Cramping in your lower abdomen. ?Pain in your upper abdomen. ?A low, dull backache. ?Severe headache that does not get better with pain medicine. You have regular contractions. You felt your water break (membranes rupture). You have other concerning symptoms such as: ?Blurry vision, or seeing spots or flashing lights. ?Noticing that your baby is not moving as much as usual, or you are not feeling any movement. ?Redness, pain, or swelling in an arm or leg. ?Dizziness or feeling like you will faint. ?Difficulty breathing. You have vaginal discharge or vaginal bleeding. You have thoughts of hurting yourself. These symptoms may be an emergency. Get help right away. Call 911. Do not wait to see if the symptoms will go away. Do not drive yourself to the hospital. Get help right away if you feel like you may hurt yourself or others, or have thoughts about taking your own life. Go to your nearest emergency room or: Call 911. Call the National Suicide Prevention Lifeline at or 243. This is open 24 hours a day. Text the Crisis Text Line at 609670. Summary Your health care provider may recommend specific activity restrictions during for a variety of reasons. Activity restriction may require that you limit activities such as exercise, lifting, sex, or any other activity that requires a lot of effort. Discuss the risks and benefits of activity restriction with your health care team to decide if it is best for you and your baby. Contact your health care provider right away if you think you are having contractions or you notice vaginal bleeding, discharge, or cramping. This information is not intended to replace advice given to you by your health care provider. Make sure you discuss any questions you have with your health care provider. Document Revised: 05/05/2022 Document Reviewed: 05/05/2022 [employer] Patient Education 2023 [email or web address]. 06/12/2024 10:06:59 Threatened Miscarriage Threatened Miscarriage A threatened miscarriage occurs when a woman has vaginal bleeding during the first 20 weeks of but the has not ended. If vaginal bleeding occurs during this time, the health care provider will do tests to make sure the woman is still . The woman's condition may be considered a threatened miscarriage if the tests show: That she is still . That the embryo or unborn baby (fetus) inside the uterus is still growing. A threatened miscarriage does not mean your will end, but it does increase the risk of losing your (miscarriage). What are the causes? The cause of this condition is usually not known. What increases the risk? The following factors may make a woman more likely to have a miscarriage: Certain medical conditions Conditions that affect the hormone balance in the body, such as thyroid disease or polycystic ovary syndrome. Diabetes. Autoimmune disorders. Infections. Bleeding disorders. Obesity. Lifestyle factors Using products with tobacco or nicotine or being exposed to tobacco smoke. Having alcohol. Having large amounts of caffeine. Recreational drug use. Problems with reproductive organs or structures Cervical insufficiency. This is when the the lowest part of the uterus (cervix) opens and thins before is at term. Having a condition called Asherman syndrome, which causes scarring in the uterus or causes the uterus to be abnormal in structure. Fibrous growths, called fibroids, in the uterus. Congenital abnormalities. These problems are present at . Infection of the cervix or uterus. Personal or medical history Injury (trauma). Having had a miscarriage before. Being younger than age 18 or older than age 35. Exposure to harmful substances in the environment. This may include radiation or heavy metals, such as lead. Using certain medicines. What are the signs or symptoms? Symptoms of this condition include: Vaginal bleeding or spotting, with or without cramps or pain. Mild pain or cramps in your abdomen. How is this diagnosed? You may have tests to check whether you are still . These tests will be done if you have bleeding, with or without pain, in your abdomen before the 20th week of . These tests include: Ultrasound. A physical exam. Measurement of your baby's heart rate. Lab tests, such as blood tests, urine tests, or swabs for infection. You may be diagnosed with a threatened miscarriage if: Ultrasound testing shows that you are still . Your baby's heart rate is strong. A physical exam shows that your cervix is closed. Blood tests confirm that you are still . How is this treated? No treatments have been shown to prevent a threatened miscarriage from going on to a complete miscarriage. However, the right home care is important. Follow these instructions at home: Get plenty of rest. Do not have sex, douche, or put anything in your vagina, such as tampons, until your health care provider says it is okay. Do not smoke or use recreational drugs. Do not drink alcohol. Avoid caffeine. Keep all follow-up visits. This is important. Contact a health care provider if: You have light vaginal bleeding or spotting while . You have pain or cramping in your abdomen. You have a fever. Get help right away if: Heavy bleeding soaks through 2 large sanitary pads an hour for more than 2 hours. Blood clots come out of your vagina. Tissue comes out of your vagina. You leak fluid, or you have a gush of fluid from your vagina. You have severe low back pain or cramps in your abdomen. You have a fever, chills, and severe pain in the abdomen. Summary A threatened miscarriage occurs when a woman bleeds from the vagina during the first 20 weeks of but the has not ended. The cause of a threatened miscarriage is usually not known. Symptoms of this condition may include vaginal bleeding and mild pain or cramps in your abdomen. No treatments have been shown to prevent a threatened miscarriage from going on to a complete miscarriage. Keep all follow-up visits. This is important. This information is not intended to replace advice given to you by your health care provider. Make sure you discuss any questions you have with your health care provider. Document Revised: 03/14/2021 Document Reviewed: 03/14/2021 [employer] Patient Education 2023 [email or web address]. Follow Up Care 06/12/2024 07:29:53 With:Ben BENÍTEZ Address: [address] [place] [address]- Business (1) When:06/15/2024 09:51:22 [facility] 06-12-2024 Note ED Patient Education Note Obstetrics and Gynecology Activity Restriction During Your health care provider may recommend specific activity restrictions during for a variety of reasons. Activity restriction may require that you limit activities that take a lot of effort, such as exercise, lifting, or sex. The type of activity restriction will vary depending on your risk or the problems you are having. Activity restriction may be recommended for a period of time until your baby is delivered. Why are activity restrictions recommended? Activity restriction may be recommended if: ? Your placenta is partially or completely covering the opening of your cervix (placenta previa). ? There is bleeding between the wall of the uterus and the amniotic sac in the first trimester of (subchorionic hemorrhage). ? You went into labor too early ( labor). ? You have a history of miscarriage. ? You have a condition that causes high blood pressure during (preeclampsia or eclampsia). ? You are with more than one baby. ? Your baby is not growing well. What are the risks? Strict bed rest has physical and emotional risks and is no longer routinely recommended. The risks depend on your specific restriction. Risks of strict bed rest include: ? Loss of muscle conditioning from not moving. ? Blood clots. ? Social isolation. ? Depression. ? Loss of income. Talk with your health care team about activity restriction to decide if it is best for you and your baby. Even if you are having problems during your , you may be able to continue with normal levels of activity with careful monitoring by your health care provider. Follow these instructions at home: If needed, based on your overall health and the health of your baby, your health care provider will decide which type of activity restriction is right for you. Activity restrictions may include: ? Avoiding activities that take a lot of effort. ? Not lifting or straining. You may have to avoid lifting. Ask your health care provider how much you can safely lift. ? Resting in a sitting position or lying down for periods of time during the day. Pelvic rest may be recommended along with activity restrictions. If pelvic rest is recommended: ? Do not have sex or an orgasm. Do not use sexual stimulators. ? Do not use tampons. Do not douche. Do not put anything into your vagina. ? Avoid any activity in which your pelvic muscles could become strained, such as squatting or vigorous lower body exercises. Questions to ask your health care provider ? Why is my activity being limited? ? How will activity restrictions affect my body? ? Why is rest helpful for me and my baby? ? What activities can I do? ? When can I return to normal activities? Get help right away if: ? You have pain. This includes: ? Chest pain. ? Cramping in your lower abdomen. ? Pain in your upper abdomen. ? A low, dull backache. ? Severe headache that does not get better with pain medicine. ? You have regular contractions. ? You felt your water break (membranes rupture). ? You have other concerning symptoms such as: ? Blurry vision, or seeing spots or flashing lights. ? Noticing that your baby is not moving as much as usual, or you are not feeling any movement. ? Redness, pain, or swelling in an arm or leg. ? Dizziness or feeling like you will faint. ? Difficulty breathing. ? You have vaginal discharge or vaginal bleeding. ? You have thoughts of hurting yourself. These symptoms may be an emergency. Get help right away. Call 911. ? Do not wait to see if the symptoms will go away. ? Do not drive yourself to the hospital. Get help right away if you feel like you may hurt yourself or others, or have thoughts about taking your own life. Go to your nearest emergency room or: ? Call 911. ? Call the National Suicide Prevention Lifeline at or 976. This is open 24 hours a day. ? Text the Crisis Text Line at 113495. Summary ? Your health care provider may recommend specific activity restrictions during for a variety of reasons. ? Activity restriction may require that you limit activities such as exercise, lifting, sex, or any other activity that requires a lot of effort. ? Discuss the risks and benefits of activity restriction with your health care team to decide if it is best for you and your baby. ? Contact your health care provider right away if you think you are having contractions or you notice vaginal bleeding, discharge, or cramping. This information is not intended to replace advice given to you by your health care provider. Make sure you discuss any questions you have with your health care provider. Document Revised: 05/05/2022 Document Reviewed: 05/05/2022 Elsevier Patient Education ? 2023 [employer] Threatened Miscarriage A threatened miscarriage occurs when a woman has vagin (more content not included)... [facility] 06-08-2024 History of Present illness Narrative Reason for Appointment: Patient ID: Sharlene Samano is a 34 y.o. female who presents for Routine Visit Patient presents today for Annual Exam. and Return OB appointment. MEDICATIONS Current Outpatient Medications Medication Instructions metFORMIN (Glucophage) 1000 MG tablet TAKE 1 TABLET (1,000 MG) BY MOUTH IN THE MORNING AND IN THE EVENING WITH MEALS Vit-Fe Fumarate-FA ( One Daily) 27-0.8 MG tablet Oral Progesterone 200 mg, Vaginal, Nightly, Insert suppository vaginally every night at bedtime until 12 weeks gestation sertraline (Zoloft) 100 MG tablet TAKE 1 TABLET BY MOUTH EVERY DAY FOR 90 DAYS ALLERGIES No Known Allergies PROBLEMS Active Ambulatory Problems Diagnosis Date Noted Anxiety 11/02/2023 Insulin resistance 11/02/2023 Irregular menstrual cycle 11/02/2023 Morbid (severe) obesity due to excess calories ([facility]) 11/02/2023 BMI 40.0-44.9, adult ([facility]) 11/02/2023 Prediabetes 11/02/2023 Hyperinsulinism 11/02/2023 Infertility, female 11/04/2023 Resolved Ambulatory Problems Diagnosis Date Noted No Resolved Ambulatory Problems Past Medical History: Diagnosis Date Anxiety and depression ([facility]) Obesity All my life Visual impairment 2000 HISTORY PAST MEDICAL HISTORY SOCIAL HISTORY Past Medical History: Diagnosis Date Anxiety and depression ([facility]) Obesity All my life Visual impairment 1999 Social History Tobacco Use Smoking status: Never Smokeless tobacco: Never Tobacco comments: Former smoker, quit in 2020 Substance Use Topics Alcohol use: Yes Comment: On special occasions Drug use: Yes Frequency: 1.0 times per week Types: Marijuana Comment: On occasion, not daily. FAMILY HISTORY Family History Problem Relation Name Age of Onset Miscarriages / Stillbirths Mother Jayashree Jaimes Diabetes Father Lenard Jaimes Diabetes Paternal Grandmother Ruby Jaimes Cancer Paternal Grandmother Ruby Jaimes COPD Paternal Grandmother Ruby Jaimes Stroke Maternal Grandmother Lester Powers Mental illness Brother Allen Albrecht SURGICAL HISTORY Past Surgical History: Procedure Laterality Date ADENOIDECTOMY 2003 CHOLECYSTECTOMY 2013 GALLBLADDER 2016 TONSILLECTOMY 2003 WISDOM TOOTH EXTRACTION REVIEW OF SYSTEMS Review of Systems: Review of Systems All other systems reviewed and are negative. OBJECTIVE Objective: Physical Exam Constitutional: Appearance: Normal appearance. She is well-developed. Genitourinary: Vulva normal. Breasts: Breasts are soft. Right: Normal. Left: Normal. Cardiovascular: Rate and Rhythm: Normal rate and regular rhythm. Pulmonary: Effort: Pulmonary effort is normal. Breath sounds: Normal breath sounds. Abdominal: General: Bowel sounds are normal. There is no distension. Palpations: Abdomen is soft. Tenderness: There is no abdominal tenderness. There is no guarding or rebound. Musculoskeletal: General: No swelling. Normal range of motion. Right lower leg: No edema. Left lower leg: No edema. Neurological: Mental Status: She is alert and oriented to person, place, and time. Skin: General: Skin is warm and dry. Psychiatric: Mood and Affect: Mood normal. Behavior: Behavior normal. Vitals and nursing note reviewed. Exam conducted with a oil lease broker present. Vitals: Estimated body mass index is 46.29 kg/m as calculated from the following: Height as of 11/11/23: 5'. Weight as of this encounter: 237 lb. BP: 120/74 Patient's last menstrual period was 02/10/2024. ASSESSMENT & PLAN ICD-10-CM 1. Well woman exam with routine gynecological exam Z01.419 Pap Smear HPV DNA probe, amplified 2. Exposure to STD Z20.2 SURESWAB(R) ADVANCED VAGINITIS PLUS, TMA CHLAMYDIA TRACHOMATIS (GENITO/STI) Neisseria gonorrhea DNA probe, direct 3. Need for maternal serum alpha-protein (MSAFP) screening Z36.1 Alpha fetoprotein, maternal Alpha fetoprotein, maternal 4. Second trimester Z34.92 POCT urinalysis dipstick manually resulted 5. Screening, , for anatomic survey Z36.89 US OB ANATOMY SINGLE W US OB CERVICAL LENGTH Return OB/Annual Exam: Patient presents today for an annual exam/routine obstetrics appointment. Patient is currently 17w0d . Patient is doing well and states she has complaints of elevated glucose lab. Pap/cultures was obtained without difficulty and patient was given [facility] order to have obtained. Patient had lab drawn on 06/03/[address] [facility] and informed provider of results. Patient is going to be referred to Diabetic Education and Diabetic Supplies be sent to pharmacy. Orders Placed This Encounter Procedures HPV DNA probe, amplified US OB ANATOMY SINGLE W US OB CERVICAL LENGTH CHLAMYDIA TRACHOMATIS (GENITO/STI) Neisseria gonorrhea DNA probe, direct Alpha fetoprotein, maternal POCT urinalysis dipstick manually resulted Follow Up: Patient is to return to our office in 4 weeks for routine OB appointment Documented by Mercedes Ruiz LPN on behalf of: Ben Benítez DO documented in this encounter [facility] 04-29-2024 Evaluation + Plan note Diagnostic Tests [id number] 04/29/24RPR with Conf Rfx 04/29/24Rubella Antibody IgG 04/29/24epatitis B Surface Antigen 04/29/24CV Antibody RFX to Quant PCR 04/29/24IV Screen 4th Generation wRfx 04/29/24Urine Culture 04/29/24 [facility] 11-11-2023 History of Present illness Narrative Images from the original note [...] should consider Clomid Portillo Peters MD, IBCLC [facility] documented in this encounter [facility] 11-11-2023 Instructions Portillo Peters MD, IBCLC - 11/11/2023 2:00 PM EST Metformin 500mg tablets Week 1: 500mg daily Week 2: 500mg twice a day Week 3: 1000mg twice a day documented in this encounter [facility] 11-04-2023 History of Present illness Narrative Associated Problem(s): Infertility, female Suspect [...] normal. She has an appointment with Dr. Jackelin fermin Sharlene Samano is a 33 y.o. female who presents [...] at the end. 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 Patient admits to depression. She has [...] 30 min Stress: Stress Concern Present (11/01/2023) [employer] - Occupational Stress Questionnaire Feeling of Stress : To some extent Social Connections: Moderately Isolated (11/01/2023) Social Connection and Isolation Panel [NHANES] Frequency of Communication with Friends and Family: More than three times a week Frequency of Social Gatherings with Friends and Family: Once a week Attends [employer]oration[employer] Services: Never Active Member of Clubs or [...] IBCLC as PCP - General (Family Medicine) Ben Benítez DO as Referring Physician (Obstetrics and [...] Thought content normal. Assessment & Plan Sharlene Samano is a 33 y.o. female who presents today to establish care. Problem List Items Addressed This Visit Anxiety - Primary Overview Improved with Zoloft 100mg daily Insulin resistance Irregular menstrual cycle Relevant Orders Cortisol DHEA level 17-Hydroxyprogesterone TSH W/REFLEX TO FT4 Hemoglobin A1c Prolactin level Antimullerian hormone (AMH) Morbid (severe) obesity due to excess calories ([facility]) Relevant Orders Cortisol DHEA level 17-Hydroxyprogesterone TSH W/REFLEX TO FT4 Hemoglobin A1c Prolactin level Antimullerian hormone (AMH) BMI 40.0-44.9, adult ([facility]) Relevant Orders Cortisol DHEA level 17-Hydroxyprogesterone TSH [...] on Insulin Reference Interval studies performed at [employer] in 2021. 10/22/2021 34.6 (H) Final Comment: Reference Range < or = 19.6 Risk: Optimal < or = 19.6 Moderate NA High >19.6 Adult cardiovascular event risk category cut points (optimal, moderate, high) are based on [employer] [facility] population data from 08/2011. This insulin assay [...] of health (SDoH) Portillo Peters MD, IBCLC [facility] documented in this encounter [facility] Healthcare 11-02-2023 Instructions Portillo Peters MD, IBCLC - 11/02/2023 2:20 PM EST use documented in this encounter [facility] Evaluation + Plan note No data available for this section [facility] Evaluation note Diagnosis Anxiety- Primary Anxiety state, unspecified Morbid (severe) obesity due to excess calories (E66.01) BMI 40.0-44.9, adult ([facility]/HCC) Prediabetes Other abnormal glucose Hyperinsulinism Other specified hypoglycemia Irregular menstrual cycle Infertility, female Encounter for screening involving social determinants of health (SDoH) Insulin resistance Other abnormal glucose [facility] encounter [facility] Diagnosis Hyperinsulinism- Primary Other specified hypoglycemia Encounter for preconception consultation documented in this encounter [facility] Diagnosis Anxiety- Primary Anxiety state, unspecified Morbid (severe) obesity due to excess calories (E66.01) BMI 40.0-44.9, adult (CMS/HCC) Prediabetes Other abnormal glucose Hyperinsulinism Other specified hypoglycemia Irregular menstrual cycle Infertility, female Encounter for screening involving social determinants of health (SDoH) Insulin resistance Other abnormal glucose Miscarriage Unspecified spontaneous without mention of complication H/O cervical incompetence documented in this encounter [facility] Diagnosis Well woman exam with routine gynecological exam Routine gynecological examination Exposure to STD Need for maternal serum alpha-protein (MSAFP) screening Second trimester state, incidental Screening, , for anatomic survey Encounter for anatomic survey Gestational diabetes mellitus (GDM), antepartum, gestational diabetes method of control unspecified Elevated glucose tolerance test Impaired glucose tolerance test documented in this encounter [facility] Healthcare[facility]* Diagnosis Second trimester state, incidental Short cervix Vaginal bleeding before 22 weeks gestation Unspecified hemorrhage in early , unspecified as to episode of care documented in this encounter [facility] Diagnosis Anxiety- Primary Anxiety state, unspecified Morbid (severe) obesity due to excess calories (E66.01) BMI 40.0-44.9, adult (CMS/HCC) Prediabetes Other abnormal glucose Hyperinsulinism Other specified hypoglycemia Irregular menstrual cycle Infertility, female Encounter for screening involving social determinants of health (SDoH) Insulin resistance Other abnormal glucose Well adult exam- Primary Routine general medical examination at a health care facility Hyperinsulinism Other specified hypoglycemia Morbid (severe) obesity due to excess calories (CMS/HCC) Prediabetes Other abnormal glucose Insulin resistance Other abnormal glucose Infertility, female Uterine cervical insufficiency during Anxiety and depression (CMS/HCC) documented in this encounter [facility] Healthcare[facility]ospital Discharge instructions No data available for this section [facility] No data available for this section [facility] Summary Purpose Family History No Family [...] for this section No Family History Records Found No data available for this section No data available for this section No Family History Records FoundNo Family History Records Found No data available for this section No data available for this section No [...] section and content) DATE CREATED AUTHOR 04/19/2020 [facility] DATE CREATED AUTHOR AUTHOR'S ORGANIZ ATION 05/01/2024 [facility] DATE CREATED AUTHOR AUTHOR'S ORGANIZ ATION 05/02/2024 [facility] DATE CREATED AUTHOR AUTHOR'S ORGANIZ ATION 06/04/2024 [facility] Osvaldo [facility] DATE CREATED AUTHOR AUTHOR'S ORGANIZ ATION 07/06/2024 [facility] DATE CREATED AUTHOR AUTHOR'S ORGANIZ ATION 10/23/2024 [facility] Kin[facility] DATE CREATED AUTHOR AUTHOR'S ORGANIZ ATION 11/27/2024 [facility] DATE CREATED AUTHOR AUTHOR'S ORGANIZ ATION 12/27/2024 [facility] Osvaldo [facility] DATE CREATED AUTHOR AUTHOR'S ORGANIZ ATION 01/31/2025 [facility] DATE CREATED AUTHOR AUTHOR'S ORGANIZ ATION 01/31/2025 [facility] DATE CREATED AUTHOR AUTHOR'S ORGANIZ ATION 02/25/2025 [facility] Kinney [facility] DATE CREATED AUTHOR AUTHOR'S ORGANIZ ATION 03/04/2025 [facility] Care Teams (unrecognized sec tion and content) [employer] Work[employer] Relationship Specialty Start Date End Date Portillo Peters MD, IBCLC [address] [place] [address] PCP - General Family Medicine 11/02/23 Georgette Adair DO [address] [place] [address] Referring Physician Obstetrics and Gynecology 11/02/23 11/03/23 [employer] Work[employer] Relationship Specialty Start Date End Date Portillo Peters MD, IBCLC [address] [place] [address] PCP - General Family Medicine 11/02/23 Ben Benítez DO [facility] [place] [address] Referring Physician Obstetrics and Gynecology 11/04/23 [employer] Worker Relationship Specialty Start Date End Date Portillo Peters MD, IBCLC [address] [place] [address] PCP - General Family Medicine 11/02/23 Ben Benítez, [facility] [place] [address] Referring Physician Obstetrics and Gynecology 11/04/23 [employer] Worker Relationship Specialty Start Date End Date Portillo Peters MD, IBCLC [address] [place] [address] PCP - General Family Medicine 11/02/23 Portillo Peters MD, IBCLC [address] [place] [address] PCP - Medical [facility] [employer] 09/27/23 09/26/99 Ben Benítez, DO [facility] [place] [address] Referring Physician Obstetrics and Gynecology 11/04/23 [employer] Worker Relationship Specialty Start Date End Date Portillo Peters MD, IBCLC [address] [place] [address] PCP - General Family Medicine 11/02/23 Portillo Peters MD, IBCLC [address] [facility] [place] [place] [address] PCP - Medical [facility] [employer] 09/27/23 09/26/99 Ben Benítez, DO [address] [place] [address] Referring Physician Obstetrics and Gynecology 11/04/23 [employer] Worker Relationship Specialty Start Date End Date Portillo Peters MD, IBCLC [address] [facility] [place] [place] [address] PCP - General Family Medicine 11/02/23 Portillo Peters MD, IBCLC [address] [facility] [place] [address] PCP - Medical [facility] [employer] 09/27/23 09/26/99 Ben Benítez, DO [address] [place] [address] Referring Physician Obstetrics and Gynecology 11/04/23 [employer] Worker Relationship Specialty Start Date End Date Portillo Peters MD, IBCLC [address] [facility] [place] [place] [address] PCP - General Family Medicine 11/02/23 Portillo Peters MD, IBCLC [address] [facility] [place] [address] PCP - Medical [facility] [employer] 09/27/23 09/26/99 Ben Benítez, DO [address] [place] [address] Referring Physician Obstetrics and Gynecology 11/04/23 [employer] Worker Relationship Specialty Start Date End Date Portillo Peters MD, IBCLC [address] [place] [address] PCP - General Family Medicine 11/02/23 Portillo Peters MD, IBCLC [address] [place] [address] PCP - Medical [employer] 09/27/23 09/26/99 Ben Benítez, [address] [place] [address] Referring Physician Obstetrics and Gynecology 11/04/23 [employer] Work[employer] Relationship Specialty Start Date End Date Portillo Peters MD, IBCLC [address] [place] [address] PCP - General Family Medicine 11/02/23 Portillo Peters MD, IBCLC [address] [place] [address] PCP - [facility] 09/27/23 09/26/99 Ben Benítez, DO [address] [place] [address] Referring Physician Obstetrics and Gynecology 11/04/23 Reason for Visit (unrecogniz ed section and content) Reason Comments follow up miscarriage Reason Comments Routine Visit Reason Comments Annual Exam FOR RECORDS PERTAINING TO PATIENTS WHO ARE [...] BE BASED ON THE PRIMARY CLINICAL RECORDS. [facility] [employer] [facility]. provides no warranty or guarantee of the accuracy or completeness of information in this document.
[2025-03-12 07:55] LABS: HCG Quantitative <1 mIU/mL
[2025-03-12 08:04] VITALS: BP 129/96; PULSE 88; O2SAT 99; BMI 52.8
[2025-03-12] MEDS: IOHEXOL 240 MG/ML - 10 ML VIAL INJ (08:44)
--- NOTE | 2025-03-12 09:00 | FL_ITS ---
The [address] [address] Patient Name: ALESHA SAMANO MRN: [id number] date: 1990 Sex: F Assigned Patient Location: LAB Current Patient Location: LAB Accession/Order Number: [id number] Exam Date: 03/12/2025 09:12 Report Date: 03/12/2025 09:22 At the request of: KUSHAL BENÍTEZ DO Procedure: FL hysterosalpingography HYSTEROSALPINGOGRAM - 2 images CLINICAL DATA: Follow-up intubated disorder. Negative test. COMPARISON: None The procedure was performed by Dr. Benítez. Contrast was injected into the uterus in the retrograde manner. Two fluoroscopic images were obtained. The endometrial cavity is within normal limits for size and contour. The fallopian tubes are seen. There is reported that there was slow filling of the fallopian tubes on the first run though normal opacification of the tubes and spill into the pelvis on the second run. Fluoroscopy time 35 seconds FL/FL hysterosalpingography IMPRESSION: DOCUMENTATION OF TUBAL PATENCY. Impression dictated by: Nevaeh Machuca M.D. 03/12/2025 9:22 AM Dictation Location: [place] [address] Electronically authenticated by: [id number] Y Date: 03/12/2025 09:22
--- NOTE | 2025-03-12 11:01 | PC.NURSE ---
Procedure complete, tolerated procedure well. Only complains of a little cramping. Ambulated to bathroom, gait steady. Discharge instructions given, verbalizes understanding. Denies complaints. Ambulated to lobby, gait steady.
--- NOTE | 2025-03-12 11:06 | PC.NURSE ---
0853 Vital signs: BP 150/77, Pulse 92, Resp 20, Pulse ox 95%
== END 2025-03-12 07:24 | disposition home or self-care (01) ==
LOC: LAB 03-13 08:53
PROVIDERS: Visit Provider Obstetrics & Gynecology
DX: N83.9 Noninflammatory disorder of ovary, fallopian tube and broad ligament, unspecified (principal)
CPT/HCPCS: 36415; 58340; 74740; 84702; Q9966